=== PATIENT | female | born 1955 | race Caucasian/White ===

== ENCOUNTER 2017-08-08 16:35 | Inpatient (IN) | payer MEDICAID ==
[~2017-08-08] VITALS: Ht 172.7 cm; Wt 65.8 kg
[~2017-08-08 16:35] MED LIST: ADVAIR 500-501 EACH INH; APAP500 PO; CIPRO500 MG PO; DUONEB 2.5-0.5 M3 ML INH; FLAGYL500 MG PO; FLEXERIL PO; HYDROCHLOROTH12.5 M1 PO; HYDROCODONE-AP1 EAC6 PO; LEXAPRO20 MG PO; MEDROLDOSEPACK PO; MIRALAX17 GM PO; MIRAPEX0.5 MG PO; MOBIC15 MG PO; NORVASC5 MG PO; OXYBUTYNIN 5 MG5 M2 PO; PROMETH-CODEIN 65 ML PO; PROZAC20 MG PO; SENOKOT-S1 TA1 PO; SPIRIVA INH; TRAMADOL 50 MG50 MG PO; VASOTEC10 MG PO; VENTOLIN HFA 1818 GM INH; ZPAK PO
[2017-08-08 16:39] VITALS: BP 107/69
[2017-08-08 18:05] LABS: HEMATOCRIT 41.3 % (37.0-47.0); HEMOGLOBIN 13.1 gm/dL (12.0-15.0); MCHC 31.6 g/dL (28.0-37.0); MCV 82.1 fL (80.0-100.0); MPV 7.7 fl. (7.2-11.1); NUCLEATED RBCS 0 /100WBC; PLATELET COUNT* 290 thou/uL (150-400); RBC 5.03 mil/uL (4.20-5.00); RDW-CV 15.5 % (10.5-14.5); WBC 26.3 thou/uL (4.0-11.0)
[2017-08-08 18:14] LABS: ANION GAP 10 mmol/L (7-16); BUN 49 mg/dL (7-18); CALCIUM 8.6 mg/dL (8.5-10.1); CHLORIDE 96 mmol/L (98-107); CO2 23 mmol/L (21-32); CREATININE 1.4 mg/dL (0.6-1.3); GLUCOSE 201 mg/dL (70-99); POTASSIUM 3.2 mmol/L (3.5-5.1); SODIUM 129 mmol/L (136-145)
[2017-08-08 18:29] LABS: ALBUMIN 3.1 g/dL (3.4-5.0); ALKALINE PHOSPHATASE 145 U/L (46-116); LIPASE 162 U/L (73-393); NT-PRO BRAIN NAT PEPTIDE 102 pg/mL (<300); SGOT 19 U/L (15-37); SGPT 22 U/L (30-65); TOTAL BILIRUBIN 0.2 mg/dL (<0.1-1.0); TOTAL PROTEIN 6.8 g/dL (6.4-8.2)
[2017-08-08 18:32] LABS: INFLUENZA A ANTIGEN None Detected (None Detect); INFLUENZA B ANTIGEN None Detected (None Detect)
[2017-08-08 18:34] LABS: ABSOLUTE LYMPHOCYTES 4.2 thou/uL (0.8-5.3); ABSOLUTE MONOCYTES 0.3 thou/uL (0.0-1.2); ABSOLUTE NEUTROPHILS 21.8 thou/uL (1.6-8.1); ATYPICAL LYMPHS 1 %; PLATELET ESTIMATE ADEQUATE
[2017-08-08 18:43] LABS: TROPONIN-I LEVEL <0.06 ng/mL (<0.06)
--- NOTE | 2017-08-08 18:51 | NUR ---
LYSSA NOTIFIED UPON PT RETURN FROM CT. PT CONNECTED TO MONITOR
[2017-08-08 20:02] LABS: URINE BILIRUBIN NEGATIVE (Negative); URINE BLOOD NEGATIVE (Negative); URINE CLARITY CLEAR; URINE COLOR YELLOW; URINE GLUCOSE-RANDOM NEGATIVE (Negative); URINE KETONES NEGATIVE (Negative); URINE NITRITE-REFLEX NEGATIVE (Negative); URINE PROTEIN NEGATIVE (Negative); URINE UROBILINOGEN 0.2 E.U./dl (0.2-1.0)
[2017-08-08 20:04] LABS: URINE LEUKOCYTES-REFLEX 2+ (Negative)
[2017-08-08 20:11] LABS: AMP/METHAMP Negative (Negative); BARBITURATES Negative (Negative); BENZODIAZEPINES Negative (Negative); COCAINE Negative (Negative); METHADONE Negative (Negative); OPIATES Negative (Negative); PCP Negative (Negative); THC POSITIVE (Negative)
[2017-08-08 20:15] LABS: SQUAMOUS >10 Many /LPF (0-3); URINE WBC-REFLEX 6-15 Few /HPF (0-5)
[2017-08-08 20:16] LABS: CASTS None Seen /LPF (None Seen); CRYSTALS None Seen /LPF (None Seen); URINE RBC None Seen /HPF (0-2)
[2017-08-08] MEDS ORDERED: CIPRO500 MG PO (20:29)
[2017-08-08] MEDS ORDERED: PREDNISONE 10 M10 MG PO (20:29)
[2017-08-08 22:24] VITALS: BP 128/74
[2017-08-08 22:30] VITALS: BP 140/62; BP 147/63
[2017-08-09 04:05] VITALS: BP 131/53
--- NOTE | 2017-08-09 04:31 | NUR ---
PT REMAIN STABLE SINCE ADMIT, VSS, SR ON THE MONITOR, PAIN TREATED, POTASSIUM REPLACED, IV FLUIDS INFUSING, PT UP AD AMPARO WITH SBA REQUSETED BY RN DUE TO IV FLUIDS AND PAIN MEDS, HOURLY ROUNDING COMPLETED, FALL PRECAUTIONS IN PLACE AT ALL TIMES WITH CALL LIGHT IN REACH, PT DID NOT SLEEP MUCH OVER NIGHT, NO COMPLAINTS OF SOA, ATE A BOX MEAL WITH OUT REPORTS OF N/V, WILL CONT TO MONITOR.
[2017-08-09 05:41] LABS: CALCIUM 7.7 mg/dL (8.5-10.1); CREATININE 0.8 mg/dL (0.6-1.3)
[2017-08-09 05:43] LABS: POTASSIUM 4.2 mmol/L (3.5-5.1)
[2017-08-09 08:10] VITALS: BP 130/109
[2017-08-09 10:08] LABS: ABSOLUTE LYMPHOCYTES 0.6 thou/uL (0.8-5.3); ABSOLUTE MONOCYTES 0.1 thou/uL (0.0-1.2); ABSOLUTE NEUTROPHILS 13.4 thou/uL (1.6-8.1); BASOPHILS 0.2 %; HEMOGLOBIN 11.3 gm/dL (12.0-15.0); LYMPHOCYTES 4.4 %; MCH 26.4 pg (26.0-34.0); MCHC 32.2 g/dL (28.0-37.0); MCV 81.7 fL (80.0-100.0); MONOCYTES 0.5 %; MPV 8.3 fl. (7.2-11.1); NUCLEATED RBCS 0 /100WBC; PLATELET COUNT* 229 thou/uL (150-400); POLYS 94.9 %; RBC 4.28 mil/uL (4.20-5.00); RDW-CV 15.7 % (10.5-14.5); WBC 14.1 thou/uL (4.0-11.0)
[2017-08-09 12:00] VITALS: BP 149/60
--- NOTE | 2017-08-09 13:47 | NUR ---
CM ASSESSMENT: Pt is A&O. Resides at home with her son and DIL. YONATAN, Kia, is Pt's paid caregiver through her Medicaid. DIL assist with cooking, cleaning and bathing/grooming. Pt has a walker that she can use if needed. No hx of HH or SNF. Goal is to return home once medically stable. No dc needs anticipated.
--- NOTE | 2017-08-09 13:56 | NUR ---
Nutrition: Consult received for loss of appetite. Wt hx shows 144# last Aug 2016. Pt weighs 139# today - no significant change in wt. Admitted with SIRS 2/2 frostbite. Regular diet. BG 189, albumin 3.1. H/o COPD, SBO. Unsure of po intake today. Expect good meal intake. Will follow up per protocol. Consider Mild risk at this time. May order Boost supplement if pt desires.
--- NOTE | 2017-08-09 15:15 | NUR ---
ASSUMED CARE OF PATIENT FROM TOÑO SNYDER AT 1400. AGREE WITH AM ASSESSMENT. PATIENT REQUESTING IBUPROFEN AND HEATING PAD, DR. CORONADO PAGED AND AWAITING RETURN CALL. WILL CONTINUE TO MONITOR.
[2017-08-09 16:00] VITALS: BP 129/65
--- NOTE | 2017-08-09 16:47 | NUR ---
PRN IBUOPROFEN ORDERED AND GIVEN FOR BACK AND SHOULDER PAIN. KPAD ORDERED AND WILL PLACE ON PATIENT ONCE UP TO UNIT. IVF REMAINS INFUSING. CALLING APPROPRIATLY WHEN NEEDING TO GET OUT OF BED. PATIENT WEARING SOCKS ON HANDS WITH LOTION.
[2017-08-09 20:00] VITALS: BP 138/68
[2017-08-10] VITALS: BP 113/42
[2017-08-10 04:00] VITALS: BP 109/62
--- NOTE | 2017-08-10 04:44 | NUR ---
PATIENT PROGRESSING TOWARDS GOALS AND DISCHARGE: PATIENT AMBULATING INDEPENDENTLY TO BATHROOM THROUGHOUT SHIFT. PAIN IN RIGHT SHOULDER AND BACK RELIEVED WITH PRN IBUPROFEN AND HEATING PAD. PATIENT IS HOPEFUL TO BE DISCHARGED HOME TODAY. PATIENT REMAINS ON ROOM AIR. NEEDLE GRADER TRACING SR HR 60-80S. HOURLY ROUNDING OBSERVED. CALL LIGHT WITHIN REACH
[2017-08-10 05:12] LABS: HEMOGLOBIN 10.6 gm/dL (12.0-15.0); MCH 26.4 pg (26.0-34.0); MCV 82.5 fL (80.0-100.0); MPV 7.8 fl. (7.2-11.1); RDW-CV 15.6 % (10.5-14.5); WBC 19.2 thou/uL (4.0-11.0)
[2017-08-10 05:31] LABS: CALCIUM 8.3 mg/dL (8.5-10.1); CREATININE 0.9 mg/dL (0.6-1.3); MAGNESIUM 1.9 mg/dL (1.8-2.4); POTASSIUM 4.4 mmol/L (3.5-5.1)
[2017-08-10 08:00] VITALS: BP 122/63
[2017-08-10] MEDS ORDERED: CIPRO500 MG PO (08:14)
[2017-08-10 10:56] VITALS: BP 122/63
--- NOTE | 2017-08-10 13:34 | NUR ---
ASSUMED PT CARE AT 0730, FULL ASSESMENT DONE CHARTED. PT A/O X4, C/0 BACK PAIN,REPORT THAT SCABS/SPLITS IN HANDS ARE BETTER, PT APPLYING BARRIOR OINTMENT TO HANDS. VSS, SR ON THE MONITOR. RECIEVED DISCHARGE ORDERS, PT EDUCATED ON INSTRUCTIONS AND NEW SCRIPT. PT VERBALIZED UNDERSTANDING. PT LEFT UNIT AT APPROX 1130.
== END 2017-08-10 11:35 | disposition home or self-care (01) | DRG 683 ==
LOC: M.ERS 16:35 → M.TBA-ER 20:50 → M.2W 20:50
PROVIDERS: Internal Medicine; Physician Assistant; ADMIT Internal Medicine
DX: N17.9 Acute kidney failure, unspecified (principal); T33.522A Superficial frostbite of left hand, initial encounter; N39.0 Urinary tract infection, site not specified; E87.2 Acidosis; R65.10 Systemic inflammatory response syndrome (SIRS) of non-infectious origin without acute organ dysfunction; T33.521A Superficial frostbite of right hand, initial encounter; I10 Essential (primary) hypertension; J44.9 Chronic obstructive pulmonary disease, unspecified; E86.9 Volume depletion, unspecified; G25.81 Restless legs syndrome; I95.9 Hypotension, unspecified; F17.210 Nicotine dependence, cigarettes, uncomplicated; Z90.710 Acquired absence of both cervix and uterus; Z90.49 Acquired absence of other specified parts of digestive tract; X31.XXXA Exposure to excessive natural cold, initial encounter; Y93.01 Activity, walking, marching and hiking; Y92.89 Other specified places as the place of occurrence of the external cause; Y99.8 Other external cause status; Z80.9 Family history of malignant neoplasm, unspecified

== ENCOUNTER 2017-08-18 12:14 | Inpatient (IN) | payer MEDICAID ==
[~2017-08-18] VITALS: Ht 172.7 cm; Wt 64.4 kg
[~2017-08-18 12:14] MED LIST changes: +PREDNISONE 10 M10 MG PO
[2017-08-18 12:26] VITALS: BP 113/89
[2017-08-18 13:03] LABS: HEMATOCRIT 35.1 % (37.0-47.0); HEMOGLOBIN 11.4 gm/dL (12.0-15.0); MCH 26.5 pg (26.0-34.0); MCHC 32.4 g/dL (28.0-37.0); MCV 81.9 fL (80.0-100.0); MPV 7.5 fl. (7.2-11.1); NUCLEATED RBCS 0 /100WBC; PLATELET COUNT* 213 thou/uL (150-400); RBC 4.28 mil/uL (4.20-5.00); RDW-CV 16.5 % (10.5-14.5); WBC 18.1 thou/uL (4.0-11.0)
[2017-08-18 13:10] LABS: CALCIUM 8.9 mg/dL (8.5-10.1); POTASSIUM 4.6 mmol/L (3.5-5.1)
[2017-08-18 13:15] LABS: ALBUMIN 2.8 g/dL (3.4-5.0); TOTAL BILIRUBIN 0.3 mg/dL (<0.1-1.0); TOTAL PROTEIN 6.4 g/dL (6.4-8.2)
[2017-08-18 13:31] LABS: URINE BILIRUBIN NEGATIVE (Negative); URINE BLOOD NEGATIVE (Negative); URINE CLARITY CLEAR; URINE COLOR DARK YELLOW; URINE GLUCOSE-RANDOM NEGATIVE (Negative); URINE KETONES NEGATIVE (Negative); URINE LEUKOCYTES-REFLEX 1+ (Negative); URINE NITRITE-REFLEX NEGATIVE (Negative); URINE PROTEIN NEGATIVE (Negative); URINE SPECIFIC GRAVITY 1.015 (1.005-1.030); URINE UROBILINOGEN 0.2 E.U./dl (0.2-1.0)
[2017-08-18 13:47] LABS: SQUAMOUS >10 Many /LPF (0-3)
[2017-08-18 13:48] LABS: BACTERIA-REFLEX 1-9 Few /HPF (None Seen); CASTS None Seen /LPF (None Seen); CRYSTALS None Seen /LPF (None Seen); URINE RBC None Seen /HPF (0-2); URINE WBC-REFLEX 6-15 Few /HPF (0-5)
[2017-08-18 13:57] LABS: ABSOLUTE EOSINOPHILS 0.4 thou/uL (0.0-0.7); ABSOLUTE LYMPHOCYTES 1.4 thou/uL (0.8-5.3); ABSOLUTE MONOCYTES 0.2 thou/uL (0.0-1.2); ABSOLUTE NEUTROPHILS 16.1 thou/uL (1.6-8.1); ATYPICAL LYMPHS 3 %
[2017-08-18 13:58] LABS: PLATELET ESTIMATE ADEQUATE
[2017-08-18 16:14] VITALS: BP 117/69
[2017-08-18 16:47] VITALS: BP 127/62
[2017-08-18] MEDS ORDERED: TRAMADOL 50 MG50 MG PO (19:21)
[2017-08-18] MEDS ORDERED: MIRAPEX0.5 MG PO (19:43)
[2017-08-18] MEDS ORDERED: FLEXERIL PO (19:44)
[2017-08-18] MEDS ORDERED: HYDROXYZINE HCL25 M2 PO (19:48)
[2017-08-19] VITALS: BP 109/62
[2017-08-19 08:00] VITALS: BP 110/60
[2017-08-19 15:40] VITALS: BP 143/82
[2017-08-20 00:04] VITALS: BP 106/55
[2017-08-20 04:16] LABS: ABSOLUTE EOSINOPHILS 0.1 thou/uL (0.0-0.7); ABSOLUTE LYMPHOCYTES 2.2 thou/uL (0.8-5.3); ABSOLUTE MONOCYTES 0.8 thou/uL (0.0-1.2); ABSOLUTE NEUTROPHILS 5.7 thou/uL (1.6-8.1); BASOPHILS 0.4 %; HEMATOCRIT 31.5 % (37.0-47.0); HEMOGLOBIN 10.1 gm/dL (12.0-15.0); LYMPHOCYTES 25.3 %; MCH 26.9 pg (26.0-34.0); MCHC 32.1 g/dL (28.0-37.0); MCV 83.9 fL (80.0-100.0); MONOCYTES 9.5 %; MPV 8.1 fl. (7.2-11.1); NUCLEATED RBCS 0 /100WBC; PLATELET COUNT* 170 thou/uL (150-400); POLYS 63.8 %; RBC 3.76 mil/uL (4.20-5.00); WBC 8.9 thou/uL (4.0-11.0)
[2017-08-20 07:45] VITALS: BP 135/72
[2017-08-20] MEDS ORDERED: LEVAQUIN 750 M750 MG PO (10:12)
[2017-08-20] MEDS ORDERED: VISTARIL 25 MG25 M1 PO (10:52)
[2017-08-20 10:53] VITALS: BP 135/72
[2017-08-20 11:12] VITALS: BP 135/72
== END 2017-08-20 11:16 | disposition home or self-care (01) | DRG 919 ==
LOC: M.ERS 12:14 → M.3W 14:32 → M.TBA-ER 14:32 → M.3W 16:22
PROVIDERS: Physician Assistant; ADMIT Family Medicine
DX: T85.848A Pain due to other internal prosthetic devices, implants and grafts, initial encounter (principal); J18.9 Pneumonia, unspecified organism; J44.0 Chronic obstructive pulmonary disease with (acute) lower respiratory infection; I10 Essential (primary) hypertension; M25.512 Pain in left shoulder; Y83.8 Other surgical procedures as the cause of abnormal reaction of the patient, or of later complication, without mention of misadventure at the time of the procedure; G25.81 Restless legs syndrome; F17.210 Nicotine dependence, cigarettes, uncomplicated; Z80.9 Family history of malignant neoplasm, unspecified; Z90.49 Acquired absence of other specified parts of digestive tract; Z90.710 Acquired absence of both cervix and uterus; Y92.89 Other specified places as the place of occurrence of the external cause

== ENCOUNTER 2017-11-13 12:02 | Inpatient (IN) | payer MEDICAID ==
[~2017-11-13] VITALS: Ht 172.7 cm; Wt 63.5 kg
[~2017-11-13 12:02] MED LIST changes: +HYDROXYZINE HCL25 M2 PO; +LEVAQUIN 750 M750 MG PO; +VISTARIL 25 MG25 M1 PO
[2017-11-13 12:11] VITALS: BP 93/46
[2017-11-13] MEDS ORDERED: IBUPROFEN 600600 M1 PO (12:20)
[2017-11-13] MEDS ORDERED: NEURONTIN600 MG PO (12:20)
[2017-11-13 13:25] LABS: HEMATOCRIT 37.1 % (37.0-47.0); HEMOGLOBIN 11.7 gm/dL (12.0-15.0); MCH 25.2 pg (26.0-34.0); MCHC 31.6 g/dL (28.0-37.0); MCV 79.9 fL (80.0-100.0); MPV 8.2 fl. (7.2-11.1); NUCLEATED RBCS 0 /100WBC; PLATELET COUNT* 295 thou/uL (150-400); RBC 4.65 mil/uL (4.20-5.00); RDW-CV 17.7 % (10.5-14.5); WBC 21.5 thou/uL (4.0-11.0)
[2017-11-13 13:29] LABS: CALCIUM 8.5 mg/dL (8.5-10.1); CREATININE 1.7 mg/dL (0.6-1.3); POTASSIUM 3.2 mmol/L (3.5-5.1)
[2017-11-13 13:34] LABS: ALBUMIN 3.4 g/dL (3.4-5.0); TOTAL BILIRUBIN 0.4 mg/dL (<0.1-1.0); TOTAL PROTEIN 7.2 g/dL (6.4-8.2)
[2017-11-13 13:49] LABS: ABSOLUTE EOSINOPHILS 0.2 thou/uL (0.0-0.7); ABSOLUTE LYMPHOCYTES 3.4 thou/uL (0.8-5.3); ABSOLUTE MONOCYTES 1.5 thou/uL (0.0-1.2); ABSOLUTE NEUTROPHILS 16.3 thou/uL (1.6-8.1); ANISOCYTOSIS 1+; PLATELET ESTIMATE ADEQUATE
[2017-11-13 15:19] LABS: HCO3 13.9 mmol/L (22.0-26.0); PCO2 25.6 mmHg (35.0-45.0); PO2 82.6 mmHg (75.0-100.0); pH 7.354 (7.340-7.450)
[2017-11-13 16:00] VITALS: BP 91/48; BP 92/42
[2017-11-13] MEDS ORDERED: RESTORIL15 MG PO (16:38)
--- NOTE | 2017-11-13 16:43 | NUR ---
ASSUMED CARE OF PATIENT AT 1600 AFTER TRANSFER TO ROOM 205 FROM EMERGENCY DEPARTMENT. PATIENT AWAKE, ALERT, AND ORIENTED APPROPRIATELY. PHYSICAL ASSESSMENT COMPLETED AND CHARTED. ADMISSION DOCUMENTATION COMPLETED AND CHARTED. PATIENT IS HYPOTENSIVE BUT OTHER VITAL SIGNS ARE STABLE. HEART MONITOR INTACT AND TRACING SINUS RHYTHM WITH HEART RATE OF 76. DUE TO WEAKNESS PATIENT HAS BEEN EDUCATED TO CALL STAFF FOR ASSISTANCE WITH TRANSFERRING AND AMBULATING. CALL LIGHT WITHIN REACH. DENIES NEEDS AT THIS TIME. NURSING WILL CONTINUE TO MONITOR.
[2017-11-13 20:00] VITALS: BP 82/42
[2017-11-13 20:20] LABS: CALCIUM 8.5 mg/dL (8.5-10.1); CREATININE 1.5 mg/dL (0.6-1.3); POTASSIUM 4.1 mmol/L (3.5-5.1)
[2017-11-14] VITALS (7 sets, daily range): BP systolic 89–129; BP diastolic 40–64
[2017-11-14 03:54] LABS: URINE BILIRUBIN NEGATIVE (Negative); URINE BLOOD TRACE (Negative); URINE CLARITY CLEAR; URINE COLOR STRAW; URINE GLUCOSE-RANDOM NEGATIVE (Negative); URINE KETONES NEGATIVE (Negative); URINE NITRITE-REFLEX NEGATIVE (Negative); URINE PROTEIN NEGATIVE (Negative); URINE SPECIFIC GRAVITY <= 1.005 (1.005-1.030); URINE UROBILINOGEN 0.2 E.U./dl (0.2-1.0)
[2017-11-14 04:00] LABS: URINE LEUKOCYTES-REFLEX 2+ (Negative)
[2017-11-14 04:54] LABS: HEMATOCRIT 30.5 % (37.0-47.0); HEMOGLOBIN 9.8 gm/dL (12.0-15.0); MCH 25.4 pg (26.0-34.0); MCV 79.5 fL (80.0-100.0); MPV 8.2 fl. (7.2-11.1); RBC 3.84 mil/uL (4.20-5.00); RDW-CV 17.7 % (10.5-14.5); WBC 14.2 thou/uL (4.0-11.0)
[2017-11-14 04:58] LABS: CASTS None Seen /LPF (None Seen); SQUAMOUS >10 Many /LPF (0-3)
[2017-11-14 04:59] LABS: BACTERIA-REFLEX 1-9 Few /HPF (None Seen); CRYSTALS None Seen /LPF (None Seen); URINE RBC 0-2 Rare /HPF (0-2); URINE WBC-REFLEX 6-15 Few /HPF (0-5)
[2017-11-14 05:35] LABS: ALBUMIN 2.7 g/dL (3.4-5.0); POTASSIUM 4.2 mmol/L (3.5-5.1); TOTAL BILIRUBIN 0.3 mg/dL (<0.1-1.0); TOTAL PROTEIN 5.4 g/dL (6.4-8.2)
--- NOTE | 2017-11-14 05:43 | NUR ---
PT CARE ASSUMED AFTER REPORT. ASSESSMENT COMPLETE. SR ON MONITOR. PRN PAIN MEDICATION GIVEN PER PT REQUEST. IVF INFUSING. PT REFUSES BED ALARM/FALL PRECAUTIONS. PT TURNS BED ALARM OFF AND AMBULATES TO THE BATHROOM. PT EDUCATED NUMOROUS TIMES TO IMPORTANCE OF FALL PRECAUTIONS AND BED ALARM. CONTINUES TO REFUSE. CALL LIGHT IN REACH. BED IN LOWEST POSITION. URINE AND STOOL SAMPLES SENT TO LAB. PROGRESSING TOWARDS SOME GOALS.
--- NOTE | 2017-11-14 09:47 | NUR ---
ASSUMED CARE OF PATIENT AFTER REPORT THIS MORNING. PATIENT AWAKE, ALERT, AND ORIENTED APPROPRIATELY. PHYSICAL ASSESSMENT COMPLETED AND CHARTED. COMPLAINED OF "ANNOYING" DISCOMFORT TO ABDOMEN. RATED DISCOMFORT 3/10. GIVEN SCHEDULED MEDICATIONS, SEE EMAR FOR DOCUMENTATION. VITAL SIGNS STABLE OTHER THAN HYPOTENSIVE BLOOD PRESSURE. OXYGEN SATURATION WITHIN NORMAL LIMITS ON ROOM AIR. PATIENT IS UP AD AMPARO. WAS A FALL RISK LAST EVENING DUE TO COMPLAINTS OF WEAKNESS AND HYPOTENSION. PATIENT REFUSED TO FOLLOW FALL PRECAUTIONS, NOT ALLOWING STAFF TO TURN ON BED ALARM, NOT CALLING FOR HELP WHEN GOING TO THE BATHROOM, DESPITE EDUCATION. REASSESSED FALL STATUS THIS MORNING. NO MORE COMPLAINTS OF WEAKNESS. STEADY GAIT. HAS NOT FALLEN IN THE LAST THREE MONTHS. EDUCATED PATIENT THAT IF SHE FELT WEAK SHE NEEDED TO CALL STAFF. STATED UNDERSTANDING. DENIES NEEDS AT THIS TIME. CALL LIGHT WITHIN REACH. NURSING WILL CONTINUE TO MONITOR.
--- NOTE | 2017-11-14 10:10 | NUR ---
CM ASSESSMENT: Pt is A&O. Resides at home alone. Known to this CM from previous hospital stay. Pt's Kia TAM, provides in home care services, paid for through Pt's medicaid. Pt receives 3 hours/day x7 days/week of inhome care services. No hx of HH or SNF. Pt has a walker that she can use if needed, Pt states that she does not currently need to use it. Goal is to return home once medically stable for dc.
--- NOTE | 2017-11-14 17:43 | NUR ---
PATIENT REMAINS ALERT AND ORIENTED APPROPRIATELY. HAS BEEN AD AMPARO THIS SHIFT WITHOUT DIFFICULTY. HAS WALKED THE HALLS SEVERAL TIMES. DENIES NEEDS AT THIS TIME. CALL LIGHT WITHIN REACH. NURSING WILL CONTINUE TO MONITOR.
[2017-11-15 04:00] VITALS: BP 112/56
[2017-11-15 04:41] LABS: HEMATOCRIT 27.5 % (37.0-47.0); HEMOGLOBIN 8.8 gm/dL (12.0-15.0); MCH 25.6 pg (26.0-34.0); MCHC 32.2 g/dL (28.0-37.0); MCV 79.7 fL (80.0-100.0); MPV 8.2 fl. (7.2-11.1); RBC 3.45 mil/uL (4.20-5.00); WBC 9.7 thou/uL (4.0-11.0)
[2017-11-15 04:49] LABS: CALCIUM 8.3 mg/dL (8.5-10.1); CREATININE 0.7 mg/dL (0.6-1.3); POTASSIUM 4.1 mmol/L (3.5-5.1)
--- NOTE | 2017-11-15 06:22 | NUR ---
Pt reports she is hopeful of being discharged soon. VSS. Up ad leoncio in room. Medicated for c/o abd pain twice during shift. Reports adequate relief from pain afterwards. Will continue to monitor.
[2017-11-15 08:00] VITALS: BP 115/56
--- NOTE | 2017-11-15 08:00 | NUR ---
AM ASSESSEMENT COMPELTE, DEFER TO COMPUTER CHARTING. MUNITIONS WORKER TRACKING SR. ALERT ORIENTED, ANXIOUS THIS AM - REASSURANCE GIVEN. ABD TENDER TO TOUCH, IV INFILTRATED - RESTARTED. REPORTING FEELING NAUSATED, WILL GIVEN REPEAT ZOFRAN TO ASSIST WITH COMPLAINTS OF NAUSEA AND CONTINUE TO MONITOR. CALL LIGHT WITHIN REACH.
[2017-11-15] MEDS ORDERED: COLACE100 MG PO (08:38)
[2017-11-15] MEDS ORDERED: CIPRO500 MG PO (08:38)
[2017-11-15] MEDS ORDERED: FLAGYL500 MG PO (08:38)
[2017-11-15 11:55] VITALS: BP 115/56
[2017-11-15 12:00] VITALS: BP 122/63
--- NOTE | 2017-11-15 14:06 | NUR ---
DISCHARGE ORDERS RECEIVED. DRILL PRESSER AND SALINE LOCK DC'D. DENIES NASUEA, PAIN OR AND DISCOMFORT AT THIS TIME. TOLERATED DIET. UP AMBULATING IN HALLS AND IN ROOM. PATIENT EDUCATED ON DISCHARGE INSTUCTIONS, VERALIZED UNDERSTANDING HAVING NO QUESTIONS - GIVEN WRITTEN DISCHARGE INSTRUCTIONS FOR REINFORCEMENT TEACHING. DC'D TO HOME WITH ALL PERSONAL BELONGINGS.
== END 2017-11-15 14:42 | disposition home or self-care (01) | DRG 872 ==
LOC: M.ERS 12:02 → M.TBA-ER 15:02 → M.2W 15:02
PROVIDERS: Internal Medicine; Personal Emergency Response Attendant; ADMIT Internal Medicine
DX: A41.9 Sepsis, unspecified organism (principal); N39.0 Urinary tract infection, site not specified; E87.1 Hypo-osmolality and hyponatremia; K52.9 Noninfective gastroenteritis and colitis, unspecified; E86.0 Dehydration; I10 Essential (primary) hypertension; F17.210 Nicotine dependence, cigarettes, uncomplicated; G25.81 Restless legs syndrome; J44.9 Chronic obstructive pulmonary disease, unspecified; K64.9 Unspecified hemorrhoids; I95.9 Hypotension, unspecified; Z90.710 Acquired absence of both cervix and uterus; Z79.899 Other long term (current) drug therapy; Z90.49 Acquired absence of other specified parts of digestive tract

== ENCOUNTER 2018-01-25 09:17 | Emergency (ER) | payer MEDICAID ==
[~2018-01-25] VITALS: Ht 172.7 cm; Wt 64.4 kg
[~2018-01-25 09:17] MED LIST changes: +COLACE100 MG PO; +IBUPROFEN 600600 M1 PO; +NEURONTIN600 MG PO; +RESTORIL15 MG PO
[2018-01-25] MEDS ORDERED: LISINOPRIL-HCT1 EAC2 PO (09:27)
[2018-01-25] MEDS ORDERED: HYDROCODONE-AP1 EAC6 PO (09:28)
[2018-01-25] MEDS ORDERED: VISTARIL 25 MG25 M1 PO (09:28)
[2018-01-25] MEDS ORDERED: SPIRIVA18 MCG INH (09:28)
[2018-01-25] MEDS ORDERED: AMLODIPINE BESY10 MG PO (09:28)
[2018-01-25] MEDS ORDERED: PREMARIN30 GM TOP (09:29)
[2018-01-25 09:49] LABS: ABSOLUTE LYMPHOCYTES 1.6 thou/uL (0.8-5.3); ABSOLUTE MONOCYTES 0.7 thou/uL (0.0-1.2); ABSOLUTE NEUTROPHILS 7.6 thou/uL (1.6-8.1); BASOPHILS 0.3 %; EOSINOPHILS 0.3 %; HEMATOCRIT 41.2 % (37.0-47.0); HEMOGLOBIN 13.1 gm/dL (12.0-15.0); LYMPHOCYTES 15.7 %; MCH 24.6 pg (26.0-34.0); MCHC 31.7 g/dL (28.0-37.0); MCV 77.6 fL (80.0-100.0); MONOCYTES 7.3 %; MPV 8.2 fl. (7.2-11.1); NUCLEATED RBCS 0 /100WBC; PLATELET COUNT* 238 thou/uL (150-400); POLYS 76.4 %; RBC 5.31 mil/uL (4.20-5.00); RDW-CV 17.8 % (10.5-14.5); WBC 9.9 thou/uL (4.0-11.0)
[2018-01-25 09:58] LABS: ANION GAP 10 mmol/L (7-16); BUN 24 mg/dL (7-18); CALCIUM 8.7 mg/dL (8.5-10.1); CHLORIDE 103 mmol/L (98-107); CO2 24 mmol/L (21-32); CREATININE 0.6 mg/dL (0.6-1.3); GLUCOSE 143 mg/dL (70-99); POTASSIUM 3.2 mmol/L (3.5-5.1); SODIUM 137 mmol/L (136-145)
[2018-01-25 10:04] LABS: ALBUMIN 3.4 g/dL (3.4-5.0); ALKALINE PHOSPHATASE 125 U/L (46-116); LIPASE 42 U/L (73-393); SGOT 18 U/L (15-37); SGPT 21 U/L (30-65); TOTAL BILIRUBIN 0.4 mg/dL (<0.1-1.0); TOTAL PROTEIN 7.4 g/dL (6.4-8.2); TROPONIN-I LEVEL <0.06 ng/mL (<0.06)
[2018-01-25 12:00] LABS: URINE BILIRUBIN NEGATIVE (Negative); URINE BLOOD NEGATIVE (Negative); URINE CLARITY CLEAR; URINE COLOR YELLOW; URINE GLUCOSE-RANDOM NEGATIVE (Negative); URINE KETONES NEGATIVE (Negative); URINE LEUKOCYTES-REFLEX NEGATIVE (Negative); URINE NITRITE-REFLEX NEGATIVE (Negative); URINE PROTEIN NEGATIVE (Negative); URINE SPECIFIC GRAVITY <= 1.005 (1.005-1.030); URINE UROBILINOGEN 0.2 E.U./dl (0.2-1.0)
[2018-01-25] MEDS ORDERED: DOXYCYCLINE 10100 MG PO (12:14)
[2018-01-25] MEDS ORDERED: NORCO 5-325 TA1 EACH PO (12:14)
[2018-01-25] MEDS ORDERED: CARAFATE 1 GM TA1 G1 PO (12:14)
[2018-01-25 12:22] VITALS: BP 134/78
--- NOTE | 2018-01-25 14:05 | EKG ---
[place] [address] ELECTROCARDIOGRAM REPORT Name: RUY CANDELARIA Room: 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 01/25/18 1404 0937 6 Cuco May MD, FACC /EPI
== END 2018-01-25 12:23 | disposition home or self-care (01) ==
LOC: M.ERS 09:17
PROVIDERS: Emergency Medicine Emergency Medical Services
DX: L03.114 Cellulitis of left upper limb (principal); L98.499 Non-pressure chronic ulcer of skin of other sites with unspecified severity; I10 Essential (primary) hypertension; Z90.49 Acquired absence of other specified parts of digestive tract; J44.9 Chronic obstructive pulmonary disease, unspecified; Z90.710 Acquired absence of both cervix and uterus

== ENCOUNTER 2018-02-04 08:45 | Observation (INO) | payer MEDICAID ==
[~2018-02-04] VITALS: Ht 172.7 cm; Wt 71.2 kg
[2018-02-04] VITALS (15 sets, daily range): BP systolic 133–168; BP diastolic 52–80
[~2018-02-04 08:45] MED LIST changes: +AMLODIPINE BESY10 MG PO; +CARAFATE 1 GM TA1 G1 PO; +DOXYCYCLINE 10100 MG PO; +LISINOPRIL-HCT1 EAC2 PO; +NORCO 5-325 TA1 EACH PO; +PREMARIN30 GM TOP; +SPIRIVA18 MCG INH
[2018-02-04 09:20] LABS: ABSOLUTE BASOPHILS 0.2 thou/uL (0.0-0.2); ABSOLUTE LYMPHOCYTES 2.1 thou/uL (0.8-5.3); ABSOLUTE MONOCYTES 0.4 thou/uL (0.0-1.2); ABSOLUTE NEUTROPHILS 11.4 thou/uL (1.6-8.1); BASOPHILS 1.3 %; EOSINOPHILS 0.1 %; HEMATOCRIT 40.4 % (37.0-47.0); HEMOGLOBIN 12.7 gm/dL (12.0-15.0); LYMPHOCYTES 14.9 %; MCHC 31.5 g/dL (28.0-37.0); MCV 76.1 fL (80.0-100.0); MPV 8.5 fl. (7.2-11.1); NUCLEATED RBCS 0 /100WBC; PLATELET COUNT* 432 thou/uL (150-400); POLYS 80.7 %; RBC 5.31 mil/uL (4.20-5.00); WBC 14.2 thou/uL (4.0-11.0)
[2018-02-04 09:24] LABS: ANION GAP 9 mmol/L (7-16); BUN 17 mg/dL (7-18); CALCIUM 9.7 mg/dL (8.5-10.1); CHLORIDE 94 mmol/L (98-107); CO2 30 mmol/L (21-32); CREATININE 0.8 mg/dL (0.6-1.3); GLUCOSE 194 mg/dL (70-99); POTASSIUM 3.7 mmol/L (3.5-5.1); SODIUM 133 mmol/L (136-145)
[2018-02-04 09:35] LABS: ALBUMIN 3.8 g/dL (3.4-5.0); ALKALINE PHOSPHATASE 128 U/L (46-116); LIPASE 81 U/L (73-393); NT-PRO BRAIN NAT PEPTIDE 190 pg/mL (<300); SGOT 19 U/L (15-37); SGPT 22 U/L (30-65); TOTAL BILIRUBIN 0.4 mg/dL (<0.1-1.0); TROPONIN-I LEVEL <0.06 ng/mL (<0.06)
--- NOTE | 2018-02-04 16:10 | EKG ---
[place] [address] ELECTROCARDIOGRAM REPORT Name: RUY CANDELARIA Room: [address] IN [facility]#: [id number] Admission: 02/04/18 Attend Phys: Walker Fiore MD Discharge: Date of : 55 Report #: [id number] THIS REPORT FOR: //name// [facility] ED Test Date: 2018-02-04 Test Time: 08:50:05 Pat Name: RUY CANDELARIA Department: Room: Gender: F Doper Operator: Yazan DHALIWAL : 1955 Requested By: Kareem Pepe Order Number: [id number] MD: Cuco May Measurements Intervals [place] Rate: 95 P: 86 [place]: 141 QRS: -25 QRSD: 109 T: 65 QT: 364 QTc: 458 Interpretive Statements Sinus rhythm nonspecific st changes Right atrial enlargement Borderline left axis deviation Low voltage, extremity and precordial leads Compared to ECG 01/25/2018 09:37:16 no change Electronically Signed On 02-04-2018 16:09:56 CDT by Cuco May [email or web address] <ELECTRONICALLY SIGNED> By: Cuco May MD, [facility] 02/04/18 1609 0850 0850 Cuco May MD, [facility] /EPI
--- NOTE | 2018-02-04 16:16 | EKG ---
[place] [address] ELECTROCARDIOGRAM REPORT Name: RUY CANDELARIA Room: [address] ADM IN [facility].#: [id number] Admission: 02/04/18 Attend Phys: Walker Fiore MD Discharge: Date of : 55 Report #: [id number] THIS REPORT FOR: //name// [facility] Test Date: 2018-02-04 Test Time: 15:50:52 Pat Name: RUY CANDELARIA Department: Room: [address] Gender: F Inspector And Clipper: 14 : 1955 Requested By: Cuco May Order Number: [id number] Davon MD: Cuco May Measurements Intervals [place] Rate: 69 P: 75 MO: 157 QRS: 9 QRSD: 94 T: 62 QT: 427 QTc: 458 Interpretive Statements Sinus rhythm Electronically Signed On 02-04-2018 16:15:59 CDT by Cuco May [email or web address] <ELECTRONICALLY SIGNED> By: Cuco May MD, [facility] 02/04/18 1615 1550 1550 Cuco May MD, FACC /EPI
[2018-02-05] VITALS: BP 145/61
[2018-02-05 04:00] VITALS: BP 102/62
[2018-02-05 05:26] LABS: HEMATOCRIT 34.8 % (37.0-47.0); HEMOGLOBIN 11.1 gm/dL (12.0-15.0); MCH 24.5 pg (26.0-34.0); MCV 76.5 fL (80.0-100.0); MPV 8.1 fl. (7.2-11.1); RBC 4.54 mil/uL (4.20-5.00); WBC 7.6 thou/uL (4.0-11.0)
[2018-02-05 05:46] LABS: ANION GAP 7 mmol/L (7-16); BUN 15 mg/dL (7-18); CALCIUM 9.1 mg/dL (8.5-10.1); CHLORIDE 102 mmol/L (98-107); CHOLESTEROL 149 mg/dL (<200); CO2 29 mmol/L (21-32); CREATININE 0.8 mg/dL (0.6-1.3); GLUCOSE 105 mg/dL (70-99); HDL CHOLESTEROL 35 mg/dL (>40); LDL CHOLESTEROL 85 mg/dL (<100); MAGNESIUM 2.1 mg/dL (1.8-2.4); POTASSIUM 4.2 mmol/L (3.5-5.1); SODIUM 138 mmol/L (136-145); TC:HDL 4.3 Ratio (Not establshd); TRIGLYCERIDE 149 mg/dL (<150); TROPONIN-I LEVEL <0.06 ng/mL (<0.06); VLDL 30 mg/dL (<40)
[2018-02-05 05:55] LABS: SERUM ASSESSMENT Clear
[2018-02-05 08:10] VITALS: BP 133/74
[2018-02-05 08:11] VITALS: BP 102/62
[2018-02-05] MEDS ORDERED: LIPITOR 20 MG T20 M1 PO (10:40)
[2018-02-05] MEDS ORDERED: CLOPIDOGREL75 MG PO (10:40)
[2018-02-05] MEDS ORDERED: NITROGLYCERIN0.4 MG SUBLING (10:40)
[2018-02-05] MEDS ORDERED: PROTONIX40 M1 PO (10:42)
[2018-02-05] MEDS ORDERED: ASPIR 8181 MG PO (10:47)
--- NOTE | 2018-02-05 10:51 | CARD ---
[address] [address] CARDIAC CATH REPORT Name: RUY CANDELARIA Room: [address] Richie Zayas#: [id number] Admission: 02/04/18 Attend Phys: Walker Fiore MD Discharge: Date of : 55 Report #: [id number] THIS REPORT FOR: //name// APPROVED REPORT Study performed: 02/04/2018 12:44:57 Patient Details Patient Status: In-Patient Room #: 230 The patient is a 62 year-old female Event Personnel Cuco May Binding Printer, Jennifer Fuentes RN Panel Cutter, Kevon Ruiz (R) Monitor, Rebeca Diehl RTR Scrub Procedures Performed BHAVIK Place w/wo Plasty Single RCA Indication Abnormal ECG, Unstable angina Risk Factors Arterial Hypertension, Tobacco History () Admission/Lab Medications/Medications given during procedure Platelet Aff. Inhib., Heparin Unfract. Procedure Narrative The patient was brought electively to the Cardiac Catheterization Laboratory and was prepped and draped in a sterile manner. The right wrist was infiltrated with 1% Lidocaine subcutaneous anesthesia. A Slender Glidesheath sheath was inserted into the right radial artery. Coronary angiography was performed using coronary diagnostic catheters. The right coronary system was accessed and visualized with a Diagnostic JR4 5fr catheter. The left coronary system was accessed and visualized with a Diagnostic JL 3.5 5fr catheter. The left ventricle was accessed and visualized with a PC: Angled Pig 5frDiagnostic catheter. Left ventricular/Aortic Valve gradient assessed via catheter pullback. Left ventriculogram was performed in SAWYER projection. Closure device was deployed with a 6 Fr Vasc-Band Reg 24cm. The patient tolerated the procedure well and there were no complications associated with the procedure. There was no hematoma. Narrow complex tachycardia occured after LV gram. Terminated by 6 [place] [address] CARDIAC CATH REPORT Name: RUY CANDELARIA Room: [address] M.R.#: [id number] Admission: 02/04/18 Attend Phys: Walker Fiore MD Discharge: Date of : 55 Report #: [id number] Intraoperative Conscious Sedation Sedation start time: 13:34 Case end Time: 14:32 Versed 2 mg Fluoro Time: 7.2 minutes Dose: DAP 74169 cGycm2 677 mGy Contrast Type and Amount: Omnipaque 150 ml Coronary Angiography The patient's coronary anatomy is co- dominant. [place] Artery Percent Stenosis Left Main: 0 % Prox LAD: 0 % Mid/Distal LAD: 50 % Circumflex: 50 % RCA: 90 % Ramus: % Left Ventriculography The left ventricle is normal in size with normal contractility. The left ventricular ejection fraction is estimated to be 60-65%. Left ventricular wall motion abnormalities are not present. There is no mitral insufficiency. Hemodynamics The aortic pressure is 102/58 mmHg with a mean of 66 mmHg. The left ventricular pressure is 130/4 mmHg with a mean of mmHg. The left ventricular end diastolic pressure is 10 mmHg. There was no gradient across the aortic valve upon pullback. Pullback from the left ventricle to the aorta revealed no gradient across the aortic valve. PCI Technique Lesion Anticoagulation was achieved with Heparin. bolus of IV aggrastat given Percutaneous coronary intervention was performed on the mid right coronary artery. The lesion stenosis prior to intervention was 90% with [place] 3 flow. A 6F IM 100CM Guide Catheter was used to engage the rca ostium. A IG: BMW 190cm Interventional Guidewire was used to cross the lesion. BALLOON DILATION A Balloon catheter Trek RX 2.5 X 12 was inserted and inflated up to 6.00atm for 12seconds. Repeat angiography revealed the following post-dilatation results: 50% stenosis. Additional Inflation: 6.00atm for 10seconds. STENT DEPLOYMENT A drug-eluting stent Xience Alpine RX 2.5X33 [place] [address] CARDIAC CATH REPORT Name: TEAGANRUY E Room: [address] M.R.#: [id number] Admission: 02/04/18 Attend Phys: Walker Fiore MD Discharge: Date of : 55 Report #: [id number] inflated up to 9.00atm for 16seconds. Repeat angiography revealed the following post-stent deployment results: 0% stenosis. Additional Inflation: 10.00atm for 19seconds. Iraj wire was required because of length and tortuosity of the rca Final angiography reveals 0 % stenosis with D[place] 3 flow. Conclusion 1. single vessel cad manifested by a long area of narrowing in the rca with a discrete 90% stenosis before the RV branch 2. successful placement of a single long drug eluting stent in the mid rca Recommendations Smoking Cessation Cardiac Rehabilitation Referral Aggressive Medical Therapy Medications Administered Clopidogrel <ELECTRONICALLY SIGNED> By: Cuco May MD, [facility] 02/05/18 1051 1051 [email or web address] May MD, FACC /INF
[2018-02-05 11:01] VITALS: BP 133/74
[2018-02-05 11:18] VITALS: BP 133/74
--- NOTE | 2018-02-05 13:22 | EKG ---
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
--- NOTE | 2018-02-05 16:40 | CON ---
[address] [address] CONSULTATION Name: RUY CANDELARIA Room: [address] Richie Zayas#: [id number] Admission: 02/04/18 Attend Phys: Walker Fiore MD Discharge: 02/05/18 Date of : 55 Report #: [id number] THIS REPORT FOR: //name// CC: Walker Swain DATE OF SERVICE: 02/04/2018 HISTORY OF PRESENT ILLNESS: The patient is a 62-year-old single white female who I was asked to see in the hospital today after she complained of chest pain. The patient has no previous history of heart disease. She apparently has had a stress test in the past. She has never had a heart catheterization. She was lying in bed last night when she woke up with pain in her chest. She developed heaviness in her chest; it went into her left shoulder. She felt somewhat diaphoretic, short of breath, and nauseated. She vomited. The pain improved, but then she came back. A friend finally brought her to the Emergency Room this morning. She was given nitroglycerin, morphine and Zofran. She was admitted to a monitored bed. I was asked to see her for further evaluation and treatment. The pain is now coming back. She does note some shortness of breath with exertion. She had no significant edema. She does have a cough. She notes occasional palpitation, no syncope. PAST MEDICAL HISTORY: Significant for shoulder surgery, back surgery, bladder tuck, cholecystectomy, hysterectomy, hypertension, diabetes. MEDICATIONS ON ADMISSION: Consisted of the following list: She is on lisinopril HCT, amlodipine, Spiriva inhaler, Flexeril, Neurontin, Restoril, tramadol. ALLERGIES: She notes no known drug allergies. FAMILY HISTORY: Negative for heart disease. SOCIAL HISTORY: She is on disability due to chronic back pain. She lives here in [place] in an apartment. She is from her . Smokes less than half pack of cigarettes a day. No alcohol abuse. REVIEW OF SYSTEMS: She has had no history of stroke. She does have asthma. She has had a peptic ulcer in the past. She was diagnosed with hepatitis C, she is awaiting treatment. No history of kidney disease, cancer, chronic skin condition, psychiatric illness. She does have history of restless legs syndrome. PHYSICAL EXAMINATION: GENERAL: Revealed a middle-aged female lying in bed. [place] [address] CONSULTATION Name: RUY CANDELARIA Room: [address]#: [id number] Admission: 02/04/18 Attend Phys: Walker Fiore MD Discharge: 02/05/18 Date of : 55 Report #: [id number] VITAL SIGNS: She has a blood pressure of 140/70, her pulse is 80. She is afebrile. HEENT: She was anicteric, conjunctivae pink. Mucous membranes moist. NECK: Veins nondistended. No carotid bruits. CHEST: Clear to auscultation. CARDIAC: Regular rate and rhythm. No significant murmur. ABDOMEN: Soft, nontender. EXTREMITIES: Had no edema. Dorsalis pedis pulse 2+ bilaterally. SKIN: Warm, dry. NEUROLOGIC: Nonfocal. LYMPHATIC: No adenopathy. MUSCULOSKELETAL: No joint effusion. RADIOLOGICAL DATA: Her ECG shows a sinus rhythm with up to 0.[address] segment depression in lead II, aVF as well as V4, V5 and V6. LABORATORY DATA: Sodium 133, creatinine 0.8, glucose 194. Liver function studies are normal. Troponin 0.06. Her white blood cell count 14.2, hemoglobin 12.7. IMPRESSION AND RECOMMENDATIONS: 1. Possible acute coronary syndrome. Recommend cardiac catheterization. 2. Hypertension. The patient has been on an BRIT inhibitor, diuretic. 3. Restless legs syndrome. 4. Tobacco abuse. 5. History of hepatitis C. <ELECTRONICALLY SIGNED> By: Cuco May MD, [facility] 02/05/18 1640 1240 Diona May MD, [facility] /nt
== END 2018-02-05 12:50 | disposition home or self-care (01) ==
LOC: M.ERS 08:45 → M.TBA-ER 09:46 → M.2W 09:46
PROVIDERS: Emergency Medicine Emergency Medical Services; ADMIT Internal Medicine
DX: I25.110 Atherosclerotic heart disease of native coronary artery with unstable angina pectoris (principal); I10 Essential (primary) hypertension; J44.9 Chronic obstructive pulmonary disease, unspecified; K26.9 Duodenal ulcer, unspecified as acute or chronic, without hemorrhage or perforation; G25.81 Restless legs syndrome; F17.210 Nicotine dependence, cigarettes, uncomplicated; K55.9 Vascular disorder of intestine, unspecified; E11.9 Type 2 diabetes mellitus without complications; Z90.89 Acquired absence of other organs; Z98.890 Other specified postprocedural states; Z90.710 Acquired absence of both cervix and uterus; Z72.89 Other problems related to lifestyle; Z86.19 Personal history of other infectious and parasitic diseases

== ENCOUNTER 2018-02-16 16:01 | Inpatient (IN) | payer MEDICAID ==
[~2018-02-16] VITALS: Ht 172.7 cm; Wt 70.9 kg
[~2018-02-16 16:01] MED LIST changes: +ASPIR 8181 MG PO; +CLOPIDOGREL75 MG PO; +LIPITOR 20 MG T20 M1 PO; +NITROGLYCERIN0.4 MG SUBLING; +PROTONIX40 M1 PO
[2018-02-16 16:05] VITALS: BP 99/74
[2018-02-16 16:35] LABS: ABSOLUTE BASOPHILS 0.1 thou/uL (0.0-0.2); ABSOLUTE EOSINOPHILS 0.2 thou/uL (0.0-0.7); ABSOLUTE LYMPHOCYTES 2.8 thou/uL (0.8-5.3); ABSOLUTE NEUTROPHILS 12.2 thou/uL (1.6-8.1); BASOPHILS 0.7 %; EOSINOPHILS 1.1 %; HEMATOCRIT 33.5 % (37.0-47.0); HEMOGLOBIN 10.4 gm/dL (12.0-15.0); LYMPHOCYTES 17.2 %; MCH 23.7 pg (26.0-34.0); MCHC 31.1 g/dL (28.0-37.0); MCV 76.1 fL (80.0-100.0); MONOCYTES 5.9 %; MPV 7.9 fl. (7.2-11.1); NUCLEATED RBCS 0 /100WBC; PLATELET COUNT* 272 thou/uL (150-400); POLYS 75.1 %; RDW-CV 16.9 % (10.5-14.5); WBC 16.2 thou/uL (4.0-11.0)
[2018-02-16 16:47] LABS: ANION GAP 7 mmol/L (7-16); BUN 18 mg/dL (7-18); CALCIUM 8.8 mg/dL (8.5-10.1); CHLORIDE 100 mmol/L (98-107); CO2 26 mmol/L (21-32); GLUCOSE 143 mg/dL (70-99); POTASSIUM 3.5 mmol/L (3.5-5.1); SODIUM 133 mmol/L (136-145)
[2018-02-16 16:50] LABS: APTT 29.6 Seconds (25.0-31.3); PROTIME 10.1 Seconds (9.20-11.50)
[2018-02-16 16:57] LABS: ALBUMIN 3.1 g/dL (3.4-5.0); ALKALINE PHOSPHATASE 97 U/L (46-116); NT-PRO BRAIN NAT PEPTIDE 390 pg/mL (<300); SGOT 21 U/L (15-37); SGPT 24 U/L (30-65); TOTAL BILIRUBIN 0.6 mg/dL (<0.1-1.0); TOTAL PROTEIN 7.1 g/dL (6.4-8.2); TROPONIN-I LEVEL <0.06 ng/mL (<0.06)
--- NOTE | 2018-02-16 17:00 | NUR ---
DR JARA NOTIFIED OF LOW B/P. FLUIDS ORDERED AND STARTED
[2018-02-16 19:05] VITALS: BP 107/51
[2018-02-16 19:15] VITALS: BP 111/57
[2018-02-16 20:00] VITALS: BP 112/59
[2018-02-17] VITALS: BP 114/52
[2018-02-17 04:00] VITALS: BP 104/52
--- NOTE | 2018-02-17 06:09 | NUR ---
ASSUMED CARE OF PT AFTER REPORT AT 1930. PT A&OX4 BUT LETHARGIC FIRST HALF OF SHIFT. VSS. PHYSICAL ASSESSMENT COMPLETED AND CHARTED. PT ON O2 VIA NC AT 2LPM WITH 94%. PT TRACING SR ON TELE. PT REMAINED AND RESTED WELL ON BED.PT STATED HAVE NOT PASSED URINE SINCE SUNDAY.BLADDER SCAN SHOWS [address].-DR GERMAIN INFORMED WITH NEW ORDER. URO CONSULTED-COOPER CATHETER INSERTED WITH 800 CC OUTPUT. PT COMPLAINED OF LOWER BACK PAIN WITH PAIN SCALE OF 9/10-DR GERMAIN INFORMED WITH NEW ORDER. PAIN MEDS GIVEN PER OCT WITH PARTIAL RELIEF. HOURLY ROUNDING OBSERVED. HS REST AND SAFETY GOALS ACHIEVED. DEEP PURPLE BRUISING NOTED ON RIGHT ARM- PHOTOGRAPH TO BE TAKEN PER UNIT PROTOCOL.CALL LIGHT WITHIN REACH.BED ALARM ON. BED IN LOW POSITION.
--- NOTE | 2018-02-17 07:15 | NUR ---
CHANGE OF SHIFT BEDSIDE REPORT GIVEN PATIENT SEEN AT BEDSIDE IN BED RESTING ASSUMED PATIENT CARE
[2018-02-17 08:00] VITALS: BP 108/51
[2018-02-17 11:23] VITALS: BP 116/53
--- NOTE | 2018-02-17 13:13 | CON ---
[address] [address] CONSULTATION Name: RUY CANDELARIA Room: [address] IN .R.#: [id number] Admission: 02/16/18 Attend Phys: Lauren Banegas Discharge: Date of : 55 Report #: [id number] THIS REPORT FOR: //name// CC: DARIUS physician/PCP Efra Patel HISTORY OF PRESENT ILLNESS: I was asked by Dr. Patel to see this 62-year-old white female in cardiology consultation for evaluation and treatment of chest pain as well as shortness of breath. This lady has known coronary artery disease. She had a coronary stent in her right coronary artery [address] May at this institution. She did have 50% lesion in her mid to distal LAD and in her circumflex that was unstented. She says her current chest pain is not like her previous chest pain, which she described as severe indigestion. This lady additionally has hypercholesterolemia and essential hypertension. She has COPD and asthma. She has tobacco abuse. She smoked 2 packs a day from the age of 9 until recently. She says she is only smoking 2 cigarettes a day now. She has been short of breath with some chest discomfort, really said she had her stenting. It has gotten progressively worse. The chest discomfort is typically with coughing. She has been having a lot of coughing and has been producing yellow-green sputum. She often gets her discomfort when she does walk her dogs. She says the discomfort is worse with activity and better with rest. Does not occur at rest. There is associated shortness of breath and nausea as well as sweating. She says the discomfort is aggravated with food, but also relieved by food. Says it is better with nitroglycerin, pain, she says discomfort does go up into her neck and shoulders. She is supposed to be taking aspirin and Plavix; however, I am somewhat suspicious of her medical compliance. She does have chronic dyspnea on exertion as well as chronic PND. She does not have orthopnea or edema. She has had 3 episodes of nearly passing out when she walks her dogs, but I think that was before her stents. She denies diabetes, but does have hypercholesterolemia and high blood pressures, no family history of coronary artery disease. She has not had renal disease or peripheral vascular disease. She says she does have pain in her legs when she walks. She has had some open and nonhealing wounds on her legs. She has not had strokes or TIAs. She denies any family history or significant family history. PAST MEDICAL HISTORY: As described above. SOCIAL HISTORY: She is . She only has an occasional beer when she has tacos or pizza. She says she smokes 2 cigarettes a day. She says she rarely has a beer. ALLERGIES: She has no known allergies. MEDICATIONS: List is extensive and includes p.r.n. albuterol, amlodipine 10 mg daily, aspirin 81 mg daily, atorvastatin 20 mg at bedtime, Plavix 75 mg daily, Flexeril 10 mg t.i.d. p.r.n. muscle spasms, Advair 500/50 one puff b.i.d., Neurontin 600 mg t.i.d., ibuprofen 600 mg p.r.n. pain, [facility] [address] [place] [address] CONSULTATION Name: RUY CANDELARIA [facility] [place]#: [id number] Admission: 02/16/18 Attend Phys: Lauren Banegas Discharge: Date of : 55 Report #: [id number] lisinopril/hydrochlorothiazide 20/25 mg daily, p.r.n. nitroglycerin, pantoprazole 40 mg daily, Mirapex 0.25 mg at bedtime for restless legs, Carafate 1 gram q.i.d., Restoril 15 mg at bedtime and Spiriva 18 mcg cap daily as well as tramadol 50 mg p.r.n. pain. REVIEW OF SYSTEMS: Positive for cough, sputum production, pneumonia, emphysema, asthma, wheezing, palpitations, chest discomfort, shortness of breath with exercise, shortness of breath lying down, waking up short of breath, nearly passing out, vomiting, ulcers, painful burning with urination, uterine cancer, seasonal allergies, medical allergies, anxiety, arthritis, rashes, hives. She wears reading glasses. Sometimes she has bleeding from her nose. She has full dentures. Otherwise, review of systems is negative for some 25 different complaints in 14 different system categories. Please see review of system form for details and negatives in review of systems. So systems reviewed include central nervous system, general, respiratory, cardiovascular, endocrine, gastrointestinal, genitourinary, hematologic, lymphatic, allergic, immunologic, psychiatric, musculoskeletal, skin, eyes, ears, nose, mouth, and throat. PHYSICAL EXAMINATION: GENERAL: She presents as a well-developed, well-nourished, white female in no acute distress. VITAL SIGNS: Pulse is 60 and regular, blood pressure is 104/52, respirations 19 and regular and temperature is 97.9 degrees. HEENT: Her head is atraumatic. Eyes clear. NECK: Supple. There is no jugular venous distention or hepatojugular reflux. Thyroid is not enlarged. There is no adenopathy. SKIN: Warm and dry. Mucous membranes are moist. LUNGS: Reveal coarse breath sounds bilaterally with an increased expiratory phase. There were no mathieu wheezes today. Breath sounds were quite course; however, breath sounds were diminished in all lung mcgregor. Expiratory phase was prolonged and there were particularly diminished breath sounds in both bases. HEART: Revealed somewhat distant first and second heart sound. There were no murmurs, rubs, thrills, heaves or gallops. PMI is not displaced. Rhythm is regular, rate was approximately 68. ABDOMEN: Soft, flat, nontender, no palpable masses, no organomegaly. EXTREMITIES: Reveal no cyanosis, clubbing or edema. NEUROLOGIC: The patient mentated normally, talked normally, moved all extremities normally. LABORATORY DATA: Her chest x-ray revealed emphysematous changes with hyperinflation, no acute process. Her EKG revealed normal sinus rhythm, possible left atrial enlargement, but no acute changes. EKG on 02/17/2018 that is the day after admission was unchanged. Troponins have been negative x 2. NT-proBNP was 390. A chest x-ray was as described above. A CT angiogram of the chest revealed no evidence of pulmonary embolus or aortic dissection. There were bilateral lower lobe airspace infiltrates, left greater than right, which [facility] [address] [place] [address] CONSULTATION Name: TEAGANRUY Purvis Room: [address] IN [facility]#: [id number] Admission: 02/16/18 Attend Phys: Lauren Banegas Discharge: Date of : 55 Report #: [id number] may represent pneumonia, atelectasis cannot be excluded, I presume. IMPRESSION: 1. Chest pain and shortness of breath, which could be secondary to pneumonia or coronary artery disease. 2. History of coronary artery disease. 3. Hypercholesterolemia. 4. Status post recent coronary stent. 5. Essential hypertension. 6. Chronic obstructive pulmonary disease. 7. Asthma. 8. Tobacco abuse. 9. Possible pneumonia. RECOMMENDATION: I would probably treat her for pneumonia. Also, I would get a nuclear stress test and an echo. If the stress test is negative, it will be helpful. A positive stress test may not be helpful, particularly in the right coronary distribution as reversible defects may persist for more than 2 weeks following angioplasty. Thank you very much for asking me to see the patient. If there are any questions, please feel free to contact me. <ELECTRONICALLY SIGNED> By: Eileen Romano MD, [facility] 02/17/18 1313 [id number]. Sarthak Romano MD, FAC /nt
[2018-02-17 15:56] VITALS: BP 115/42
--- NOTE | 2018-02-17 18:43 | NUR ---
PATIENT REMAINS A AND O X 4 SR LUNGS CTA/DIM GROUND HAND COUGH O2 2L NC O2 SAT MID 90S GOOD APPETITE LAST BM T-2 COOPER TO DD DARK YELLOW URINE UP WITH 1 ASSIST BATHROOM/CHAIR R ARM BRUISE IV R FA 22 GA IVF NS 100CC ORDERS FOR CARDIOLYTE STRESS TEST AND 2D ECHO 02/18 C/O BACK PAIN TREATED WITH ULTRAM WITH RELIEF ABN LABS WBC 16.2, NA 133, BNP 390 CALL LIGHT IN REACH AND INSTRUCTION GIVEN AND FOLLOWED
[2018-02-17 20:00] VITALS: BP 136/61
[2018-02-18 00:02] VITALS: BP 115/51
[2018-02-18 03:42] VITALS: BP 135/66
--- NOTE | 2018-02-18 05:22 | NUR ---
ASSUMED CARE OF PT AFTER REPORT AT 1930. PT A&OX4. VSS. PHYSICAL ASSESSMENT COMPLETED AND CHARTED. PT ON O2 VIA NC AT 2LPM WITH 95% O2 SAT. PT TRACING SR ON TELE. PT UP WITH 1 ASSIST. INSTRUCTED ON NPO POST MIDNIGHT-FOR STRESS TEST TODAY.COMMUNICATES UNDERSTANDING. PT C/O OF BACK PAIN AND HEADACHE WITH PAIN SCALE OF 10/10-DUE SCHEDULED AND PRN MEDS GIVEN WITH NO RELIEF. DR BRIONES INFORMED WITH NEW ORDER.HYDROCONE/APAP GIVEN PER OCT WITH PARTIAL RELIEF.PT HAD ONE EPISODE OF N/V-DUE ANTIEMETIC MED GIVEN PER OCT.HOURLY ROUNDING OBSERVED. HS REST AND SAFETY GOALS ACHIEVED. CALL LIGHT WITHIN REACH. BED IN LOW POSITION.
[2018-02-18 08:00] VITALS: BP 130/52
[2018-02-18 13:22] VITALS: BP 141/60
[2018-02-18] MEDS ORDERED: AZITHROMYCIN 2250 MG PO ×2 (13:40→15:06)
[2018-02-18] MEDS ORDERED: KEFLEX500 M1 PO ×2 (13:40→15:04)
[2018-02-18] MEDS ORDERED: PREDNISONE 10 M10 MG PO ×2 (13:47→15:09)
--- NOTE | 2018-02-18 14:30 | NUR ---
RECEIVED REPORT FROM KYLEE LUNDBERG. ASSUMED CARE OF PT AROUND 0730. PT A&O X4. VSS. O2 SAT 95% ON 2L NC. SOURCER IN PLACE TRACING SR. AM ASSESSMENT AND VITALS COMPLETED CHARTED. IV TO RIGHT FA INTACT AND NOW SALINE LOCKED. PT HAS COMPLETED STRESS TEST THIS SHIFT. DC LATER TODAY PENDING STRESS TEST RESULTS. PT EATING AND DRINKING WITHOUT ISSUE. FOELY IN PLACE TO DD, URINE YELLOW. NO BM SO FAR TODAY. PT HAS REPORTED BACK PAIN THAT HAS BEEN MANGED WITH PO PAIN MEDICATION WITH PARTIAL RELIEF. PT CURRENTLY RESTING IN BED WATCHING TV. FALL PRECAUTIONS IN PLACE. CALL LIGHT IS WITHIN REACH, HOURLY ROUNDING PERFORMED. WCTM.
--- NOTE | 2018-02-18 14:43 | EKG ---
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
--- NOTE | 2018-02-18 14:50 | EKG ---
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
--- NOTE | 2018-02-18 15:17 | NUR ---
Pt is known to this CM from previous hospital stay. Pt is A&O. Resides at home alone. Pt's family provides inhome care services, paid through her Medicaid. Pt has a walker that she can use if needed. No hx of HH or SNF. Goal is to return home at [place]. Following.
[2018-02-18 15:40] VITALS: BP 141/60
[2018-02-18 16:14] VITALS: BP 129/49
[2018-02-18] MEDS ORDERED: TYLENOL325 MG PO (17:11)
--- NOTE | 2018-02-18 18:40 | NUR ---
RESULTS OF STRESS TEST CAME BACK NEGATIVE. PT ABLE TO DC. DISCHARGE COMPLETED CHARTED. DISCHARGE SUMMARY AND CARE NOTES GONE OVER WITH PT. PT COMMUNICATES UNDERSTANDING. SCRIPTS GIVEN. PT AWARE OF F/U APPOINTMENTS WITH PCP AND HER UROLOGIST. IV AND ICE GRINDER REMOVED. PT SENT HOME WITH FOELY CATHETER PER ORDERS FROM DR GERMAIN. PT EDUCATED ON CATHETER CARE, PT COMMUNICATES UNDERSTANDING AND ABLE TO DO RETURN DEMONSTRATION. ALL BELONGINGS GATHERED AND SENT WITH PT. PT LEFT UNIT WITH NURSING STAFF. PT LEFT HOSPITAL IN CAR WITH DAUGHTER.
--- NOTE | 2018-02-19 15:37 | CARDNUC ---
[place] [address] CARDIAC NUCLEAR IMAGING REPORT Name: RUY CANDELARIA Room: [address]#: [id number] Admission: 02/16/18 Attend Phys: Efra Patel Discharge: 02/18/18 Date of : 55 Date of Service: 02/19/18 1537 Report #: [id number] THIS REPORT FOR: //name// ADDENDUM APPROVED REPORT Study performed: 02/17/2018 11:52:00 Indication: Chest pain, Dyspnea, CAD s/p PCI Patient Location: In-Patient Room #: 222 Stress Tech: Brenda Bran Stress Nurse: Ameena Dale RN Ht: 5 ft 8 in Wt: 162 lbs BSA: 1.87 m2 BMI: 24.62 Medical History Medical History: CAD s/p stent Medications: amlodipine, lisinopril, asa Allergies: No known drug allergies Cardiac Risk Factors: Age, HTN, Hyperlipidemia, Current Smoker Previous Cardiac Procedures: PCI Exercise History: Sedentary Resting Data Rest SPECT myocardial perfusion imaging was performed in supine position 30 minutes following the intravenous injection of 10.8 mCi of Tc-99m Sestamibi. Time of rest injection: 10:05 The images were gated to evaluate regional wall motion and calculate left ventricular ejection fraction. Administration Route: IV Administration Site: Right Wrist Pharmacologic Stress Pharmacologic stress test was performed by injecting Regadenoson 0.4 mg IV push over 10-15 seconds immediately followed by the intravenous injection of 35.6 mCi of Tc-99m Sestamibi. Time of stress injection: 11:45 Time of stress imagin:00 Administration Route: IV Administration Site: Right Wrist Heart Rate at time of stress injection: 101 bpm. The images were gated to evaluate regional [place] [address] CARDIAC NUCLEAR IMAGING REPORT Name: RUY CANDELARIA Room: [address]#: [id number] Admission: 02/16/18 Attend Phys: Efra Patel Discharge: 02/18/18 Date of : 55 Date of Service: 02/19/18 1537 Report #: [id number] left ventricular ejection fraction. Prone imaging was performed. Stress Test Details Stress Test: Pharmacologic stress testing performed using 0.4 mg of regadenoson per 5 mL given IV over 10 seconds. Reason for pharmacologic stress test: physical limitation. HR Resting HR: 80 bpm Max Heart Rate (APMHR): 158 bpm Max HR Achieved: 101 bpm Target HR (85% APMHR): 134 bpm % of APMHR: 63 Recovery HR: 92 bpm BP Resting BP: 142/61 mmHg Max BP: 140/53 mmHg ECG Resting ECG: Sinus Rhythm, normal EKG Stress ECG: Sinus Rhythm, normal EKG ST Change: None Arrhythmia: None Recovery ECG: Sinus Rhythm, normal EKG Recovery ST Change: None Recovery Arrhythmia: None Clinical Reason for Termination: Completed protocol Stress Symptoms: None Exercise duration: 0 min sec Exercise capacity: 1.0 METs The patient had no significant symptoms with Lexiscan infusion. Stress ECG Conclusion Baseline 12-lead electrocardiogram showed normal sinus rhythm with no significant ST or T wave abnormalities. EKGs obtained during and post Lexiscan infusion showed sinus rhythm with no significant ST or T wave changes compared baseline. There were no significant stress-induced arrhythmias. Study Quality Study: Good Artifact: [place] [address] CARDIAC NUCLEAR IMAGING REPORT Name: RUY CANDELARIA Room: [address]#: [id number] Admission: 02/16/18 Attend Phys: Efra Patel Discharge: 02/18/18 Date of : 55 Date of Service: 02/19/18 1537 Report #: [id number] Study Data At rest, the left ventricular ejection fraction was 80%.. Post stress, the left ventricular ejection was 80%.. TID = 1.02. Perfusion Normal left ventricular perfusion. Wall Motion Normal left ventricular wall motion. Nuclear Conclusion ECG Findings: negative for ischemia Clinical Findings: negative for ischemia Nuclear Findings: negative for ischemia Exercise Capacity: not assessed Left Ventricular Function: normal Risk Study: low Myocardial perfusion images show no defect to suggest ischemia. Left ventricular systolic function appears normal on gated studies. This is a low risk study. <Conclusion> Baseline 12-lead electrocardiogram showed normal sinus rhythm with no significant ST or T wave abnormalities. EKGs obtained during and post Lexiscan infusion showed sinus rhythm with no significant ST or T wave changes compared baseline. There were no significant stress-induced arrhythmias. <ELECTRONICALLY SIGNED> By: Carl Pearce MD, FACC 02/19/18 1537 1537 1537 Carl Pearce MD, FACC /INF
== END 2018-02-18 18:40 | disposition home or self-care (01) | DRG 190 ==
LOC: M.ERS 16:01 → M.TBA-ER 18:07 → M.2W 18:07
PROVIDERS: Family Medicine; ADMIT Internal Medicine
DX: J44.0 Chronic obstructive pulmonary disease with (acute) lower respiratory infection (principal); J18.9 Pneumonia, unspecified organism; J44.1 Chronic obstructive pulmonary disease with (acute) exacerbation; E78.00 Pure hypercholesterolemia, unspecified; I25.10 Atherosclerotic heart disease of native coronary artery without angina pectoris; I10 Essential (primary) hypertension; G25.81 Restless legs syndrome; R33.9 Retention of urine, unspecified; F17.210 Nicotine dependence, cigarettes, uncomplicated; W18.39XA Other fall on same level, initial encounter; Z95.5 Presence of coronary angioplasty implant and graft; Z79.2 Long term (current) use of antibiotics; Z79.82 Long term (current) use of aspirin; Z79.899 Other long term (current) drug therapy; Z90.710 Acquired absence of both cervix and uterus; Z90.711 Acquired absence of uterus with remaining cervical stump; Z80.9 Family history of malignant neoplasm, unspecified; Y93.89 Activity, other specified; Y92.098 Other place in other non-institutional residence as the place of occurrence of the external cause; Y99.8 Other external cause status

== ENCOUNTER 2018-06-02 18:45 | Inpatient (IN) | payer MEDICAID ==
[~2018-06-02] VITALS: Ht 172.7 cm; Wt 74.8 kg
[~2018-06-02 18:45] MED LIST changes: +AZITHROMYCIN 2250 MG PO; +KEFLEX500 M1 PO; +TYLENOL325 MG PO
[2018-06-02 19:00] VITALS: BP 182/52
[2018-06-02 19:38] LABS: HEMATOCRIT 38.2 % (37.0-47.0); HEMOGLOBIN 12.3 gm/dL (12.0-15.0); MCH 24.2 pg (26.0-34.0); MCHC 32.2 g/dL (28.0-37.0); MCV 75.2 fL (80.0-100.0); NUCLEATED RBCS 0 /100WBC; PLATELET COUNT* 295 thou/uL (150-400); RBC 5.08 mil/uL (4.20-5.00); RDW-CV 20.7 % (10.5-14.5)
[2018-06-02 19:49] LABS: CALCIUM 8.3 mg/dL (8.5-10.1); CREATININE 0.9 mg/dL (0.6-1.3)
[2018-06-02 19:57] LABS: INR 1.2; PROTIME 11.8 Seconds (9.20-11.50)
[2018-06-02 20:01] LABS: TOTAL BILIRUBIN 0.5 mg/dL (<0.1-1.0); TOTAL PROTEIN 4.9 g/dL (6.4-8.2)
[2018-06-02 20:03] LABS: ANISOCYTOSIS 2+; HYPOCHROMASIA 1+; MACROCYTES Occasional; MICROCYTES 1+; PLATELET ESTIMATE ADEQUATE
[2018-06-02 20:04] LABS: POIKILOCYTOSIS Occasional; TOXIC GRANULATION 2+
[2018-06-02 20:26] LABS: BE 0.3 mmol/L (-2 to +3); HCO3 24.4 mmol/L (22.0-26.0); PCO2 37.3 mmHg (35.0-45.0); pH 7.433 (7.340-7.450)
[2018-06-02 20:29] LABS: PO2 44.4 mmHg (75.0-100.0)
[2018-06-02 22:00] LABS: URINE BILIRUBIN NEGATIVE (Negative); URINE BLOOD NEGATIVE (Negative); URINE CLARITY CLEAR; URINE COLOR YELLOW; URINE GLUCOSE-RANDOM NEGATIVE (Negative); URINE KETONES NEGATIVE (Negative); URINE LEUKOCYTES-REFLEX NEGATIVE (Negative); URINE NITRITE-REFLEX NEGATIVE (Negative); URINE PROTEIN TRACE (Negative); URINE UROBILINOGEN 0.2 E.U./dl (0.2-1.0)
[2018-06-02 23:15] VITALS: BP 114/53
[2018-06-02 23:30] VITALS: BP 114/49
[2018-06-03 01:42] LABS: HEMATOCRIT 32.6 % (37.0-47.0); HEMOGLOBIN 10.6 gm/dL (12.0-15.0); MCH 24.5 pg (26.0-34.0); MCHC 32.4 g/dL (28.0-37.0); MCV 75.6 fL (80.0-100.0); MPV 7.9 fl. (7.2-11.1); RBC 4.32 mil/uL (4.20-5.00); RDW-CV 20.3 % (10.5-14.5); WBC 11.1 thou/uL (4.0-11.0)
[2018-06-03 01:53] LABS: ALBUMIN 1.6 g/dL (3.4-5.0); CALCIUM 7.6 mg/dL (8.5-10.1); CREATININE 0.7 mg/dL (0.6-1.3); TOTAL BILIRUBIN 0.4 mg/dL (<0.1-1.0); TOTAL PROTEIN 4.9 g/dL (6.4-8.2)
[2018-06-03 01:55] LABS: POTASSIUM 2.2 mmol/L (3.5-5.1)
--- NOTE | 2018-06-03 05:10 | NUR ---
PT ADMITTED TO ROOM 218 FROM ER. PT MOVED SELF TO HOSPITAL BED FROM STRETCHER WITH ASSISTANCE. BIPAP IN INTACT WITH SETTING 12/ RATE 12 ADN FIO2 90%. RESP REG ADN UNALBORED SKIN W/D LUNGS COARSE. PT C/O NAUSEA AND PT MEDICATED X2 THIS SHIFT. PT ORIENTED TO ROOM, CALL SYSTEM BED CONTROLS AND TV CONTORLS PT VERBALIZED GOOD UNDERSTANDING. VSS AND NO ACUTE CHANGES DURING SHIFT. RT PLACED PT ON 5L HIGH FLOW APPOROXIMATELY AT 0500 AND IS TOLERATING WELL. TELEMETRY PACK APPLIED WITH ALARMS SET. SPLINT TO RIGHT LOWE RLEG AND FOOT INTACT, 1+ PEDIAL PULSE NOTED.COOPER INTACT AND PATENT DRAINING LIGH TYELLOW URINE TO BEDSIDE BAG. ELECTOROLYTES BEING REPLACED PER PROTOCOL.
[2018-06-03 07:30] VITALS: BP 107/55
[2018-06-03 12:50] VITALS: BP 96/43
[2018-06-03] MEDS ORDERED: HYDROCHLOROTHIA25 M2 PO (13:19)
--- NOTE | 2018-06-03 15:00 | NUR ---
Pt is A&O. Resides at home alone at [facility]. Independent. Pt has inhome care services through her [place] [facility], 3hrs/day for 7days/week. Pt has a shower chair and grab bars. No hx of HH or SNF. Pt's goal is to return home at dc. Supportive family and friends. Per Pt, anticipate dc in a few days. Following.
[2018-06-03 16:00] VITALS: BP 119/54
--- NOTE | 2018-06-03 17:51 | EKG ---
[place] [address] ELECTROCARDIOGRAM REPORT Name: RUY CANDELARIA Room: [address] ADM IN M.R.#: [id number] Admission: 06/02/18 Attend Phys: Walker Fiore MD Discharge: Date of : 55 Report #: [id number] THIS REPORT FOR: //name// [facility] ED Test Date: 2018-06-02 Test Time: 19:36:26 Pat Name: RUY CANDELARIA Department: Room: [facility] Gender: F Staff Radiologist: : 1955 Requested By: Tara Reinoso Order Number: [id number] MD: Carl Pearce Measurements Intervals [place] Rate: 87 P: -39 VT: 126 QRS: -2 QRSD: 136 T: 61 QT: 489 QTc: 589 Interpretive Statements Sinus rhythm Multiple ventricular premature complexes Minimal ST depression, anterior leads Compared to ECG 02/17/2018 09:36:06 Ventricular premature complex(es) now present ST (T wave) deviation now present Electronically Signed On 06-03-2018 17:51:28 CDT by Carl Pearce [email or web address] <ELECTRONICALLY SIGNED> By: Carl Pearce MD, FACC 06/03/18 1751 35 35 Carl Pearce MD, FACC /EPI
--- NOTE | 2018-06-03 18:11 | NUR ---
PATIENT PROGRESSING TOWARDS GOALS. PAIN CONTROLLED WITH PRN PAIN MEDICATION. UP WITH ASSIST X1 AND A WALKER FROM BED TO RECLINER. COOPER DRAINING CLEAR YELLOW URINE TO DEPENDENT DRAIN. SHE IS TOLERATING HER DIET WELL WITHOUT ANY NAUSEA OR VOMITING. HOURLY ROUNDING CHARTED. CALL LIGHT WITHIN REACH. WILL CONTINUE TO MONITOR.
[2018-06-03 19:22] VITALS: BP 122/50
[2018-06-04] VITALS: BP 107/51
[2018-06-04 02:06] LABS: GLYCOHEMOGLOBIN (HGB A1C) 6.5 % (4.8-5.6)
[2018-06-04 04:00] VITALS: BP 99/51
[2018-06-04 04:36] LABS: HEMATOCRIT 30.9 % (37.0-47.0); HEMOGLOBIN 9.9 gm/dL (12.0-15.0); MCH 24.2 pg (26.0-34.0); MCV 75.6 fL (80.0-100.0); MPV 7.7 fl. (7.2-11.1); RBC 4.08 mil/uL (4.20-5.00); RDW-CV 20.7 % (10.5-14.5); WBC 12.5 thou/uL (4.0-11.0)
--- NOTE | 2018-06-04 04:56 | NUR ---
CARE ASSUMMED. PT AAOX4 RESP REG AND UNALBORED. SKIN W/D NO AUCTE DISTRESS NOTED. SPLINT TO RIGHT FOOT AND INTACT. PT STATED THE FOOT STILL HAS A LOT OF DISCOMFORT AT THIS TIME. TELEMETRY PACK INTACT WITH ALARMS SET. VSS AND NO ACUTE DISTRESS NOTED. PT C/O NAUSEA X1 THIS SHIFT, NO EMESIS NOTED VSS AND NO ACUTE CHANGES THIS SHIFT WILL CONTINUE TTO MONITOR.
[2018-06-04 05:00] LABS: ALBUMIN 1.6 g/dL (3.4-5.0); CALCIUM 8.2 mg/dL (8.5-10.1); CREATININE 0.7 mg/dL (0.6-1.3); MAGNESIUM 1.8 mg/dL (1.8-2.4); TOTAL BILIRUBIN 0.2 mg/dL (<0.1-1.0); TOTAL PROTEIN 4.9 g/dL (6.4-8.2)
[2018-06-04 05:04] LABS: POTASSIUM 2.6 mmol/L (3.5-5.1)
[2018-06-04 08:00] VITALS: BP 128/51
--- NOTE | 2018-06-04 08:50 | CON ---
[address] [address] CONSULTATION Name: RUY CANDELARIA Room: [address] IN M.R.#: [id number] Admission: 06/02/18 Attend Phys: Walker Fiore MD Discharge: Date of : 55 Report #: [id number] THIS REPORT FOR: //name// CC: [facility] physician/PCP Walker Fiore REQUESTING PHYSICIAN: Nora Donaldson MD REASON FOR CONSULTATION: Pneumonia, hypoxemia. DISCUSSION: The patient is a 63-year-old woman who has a history of underlying COPD, severity unknown. She has a long history of significant tobacco abuse. She presented to the emergency department yesterday with complaints of increasing shortness of breath. However, she had had increasing pain in her shoulder, as well as in her right foot. She had had a shelf fall on her foot several days prior to presentation. She had tried to tough it out. She has had prior surgery on her shoulder. Had development of the pain; however, without any obvious injury. When she was seen in the emergency department, evaluation did reveal fractures in the right metatarsals. She was not thought to have anything initially with the shoulder. However, she was found to be hypoxic, even on supplemental oxygen. The amounts were increased. A chest x-ray revealed extensive infiltrates. This was confirmed on followup CT scan done of her chest. No pulmonary emboli were seen. She was on BiPAP for period of time. Did have some vomiting earlier this morning, was taken off. She is now on nasal cannula. At the time I saw her early this afternoon, she subjectively was already feeling much better. She has had prior episodes of pneumonia in the past. She has not been O2 or steroid dependent. In the past, she has smoked upwards of 3 packs of cigarettes per day. She is now down to smoking 2 cigarettes per day. She notes when she walks her dogs in the morning and in the evening, she does have a single cigarette. No smokers in her home (she is in an apartment). Normally at home, she does her Advair twice a day, Spiriva daily and she has her nebulizer, as well as an albuterol inhaler. She is not aware of any definite fevers at home though has not felt very good. Has had some cough with scant amounts of secretions. They have generally been clear. She denies having any true chest pain. No hemoptysis. She denies any prior history of thromboembolic disease. She does not see a sales representative health insurance in this area. She did move here from [place] about 3 years ago to be closer to family. She has been afebrile since admission. O2 saturations have improved, though she did have some initial nausea and vomiting, that has improved. She was without GI complaints at the time I saw her this afternoon, [place] [address] CONSULTATION Name: TEAGANRUYSIMONA VICK Room: [address] IN .R.#: [id number] Admission: 06/02/18 Attend Phys: Walker Fiore MD Discharge: Date of : 55 Report #: [id number] PAST MEDICAL HISTORY: Remarkable for the COPD as noted. Has had prior episodes of recurrent urinary tract infections, ischemic bowel and partial small bowel obstructions, right shoulder surgery last year, prior episodes of dehydration, bowel resection, restless legs syndrome, several back surgeries, laparoscopic cholecystectomy, bladder surgery, hypertension. SOCIAL HISTORY: She is not . Lives with two dogs. Two cigarettes per day are noted. REVIEW OF SYSTEMS: A 12-point ROS was done. No positives as above. She denies any recent true chest pain, but had the pain in her shoulder (right). Not aware of any palpitations. No recent syncopal episodes. She typically is able to get around without a lot of shortness of breath. She sleeps with 1 pillow. Typically does not awaken at night short of breath. No hemoptysis. Not noted any recent blood in her stools. Had had some nausea and vomiting. She denies any diarrhea. She has not been around anyone who has been ill that she is aware of. She has had the Pneumovax, she believes at some point. She has had a flu shot for this season as well. PHYSICAL EXAMINATION: GENERAL: Appearance of a woman who looks stated age, if not older. She is sitting up in a chair with O2 running via nasal cannula. She is alert, cooperative and speaking in full sentences. HEENT: Head is normocephalic. Sclerae nonicteric. Mucous membranes are dry. NECK: Negative for adenopathy. No supraclavicular adenopathy. HEART: Regular rate, occasional extrasystole. Tones are little distant. LUNGS: Reveal breath sounds to be diminished. Prolonged expiratory phase. Few crackles heard in the bases. She has a few faint expiratory wheezes heard as well. Excursion is equal. No dullness to percussion. ABDOMEN: Appears soft, without definite hepatosplenomegaly is noted. EXTREMITIES: Her right leg is elevated. It is wrapped in a splint. Her left leg is without edema. No calf tenderness. Pulses are present, but diminished. She has no clubbing noted. SKIN: Warm and dry. NEUROLOGIC: She is alert and oriented times 3. LABORATORY AND X-RAY FINDINGS: Chest x-ray done yesterday showed some emphysematous changes. She has extensive infiltrates noted primarily on the right side. Minimal changes are noted in the left base. CT angiogram done of her chest yesterday from negative for pulmonary emboli. She has a right lower lobe pneumonia with air bronchograms noted. No pleural effusions. Additional opacities noted left lower lobe. Some upper lobes as well. On her chemistry, her sodium is 135, potassium 2.2 (being supplemented), BUN is 16, creatinine of 0.7. Transaminases normal. Blood sugars were high. ProBNP 616. Albumin only 1.6. White blood cell yesterday was 20,000 and 11,100 today. Hemoglobin 10.6, hematocrit of 32.6, platelets are normal. CRP yesterday 299[place] [address] CONSULTATION Name: CANDELARIARUY NICANOR Room: [address] IN [facility]#: [id number] Admission: 06/02/18 Attend Phys: Walker Fiore MD Discharge: Date of : 55 Report #: [id number] 4.6. Arterial blood gases done yesterday, on 3 L, she had a pH 7.43, pCO2 of 37, pO2 of 44, bicarbonate 24 with a saturation of 81%. Her blood cultures have been sent. Urine for strep pneumonia antigen is pending. This summer, she did have stress test done. Is negative for findings of ischemia. LV function was thought to be normal. MEDICATIONS: Currently here in the hospital, her medications are atorvastatin, temazepam at bedtime, Requip, budesonide twice a day, gabapentin, DuoNeb every 4 hours, ceftriaxone, levofloxacin, aspirin, Protonix, Carafate, cyclobenzaprine, tramadol p.r.n., Protonix, amlodipine, methylprednisolone 62.5 mg IV every 8 hours, p.r.n. nitroglycerin, p.r.n. ibuprofen, p.r.n. morphine, potassium replacement protocol. IMPRESSION: 1. Pneumonia. It is essentially community acquired. She is now on Rocephin and levothyroxine, which should provide good coverage. 2. Hypoxic respiratory failure. Already O2 needs have improved. 3. Chronic obstructive pulmonary disease, severity unknown. She is not O2 or steroid dependent at home. 4. Tobacco abuse. It is down to 2 cigarettes per day from 3 packs in the past. 5. History of hypertension. 6. Chronic kidney disease. RECOMMENDATIONS: 1. We will add Brovana since she is on Advair at home. 2. Continue steroids and antibiotics. 3. Wean O2 as able. 4. Long-term complete smoking cessation is advised. 5. Repeat chest x-ray in several days. <ELECTRONICALLY SIGNED> By: Josy Epperson MD 06/04/18 0850 1335 [id number] Epperson MD /nt
--- NOTE | 2018-06-04 11:45 | NUR ---
SHIRRING TENDER SPOKE TO BEBA WITH MED[employer] TO DISCUSS PRECERT FOR A KNEE SCOOTER ([facility] CODE:[id number]) FOR THE PATIENT. BEBA INFORMS THAT THE 'KNEE SCOOTER IS ONLY AVAILABLE A PURCHASE, AND SHE WILL OWN IT AFTER MEDICAID PAYS FOR IT'. IF SHE WANTS TO RENT THE KNEE SCOOTER SHE WOULD NEED TO PAY PAY FOR IT OUT OF POCKET'. D/C CANNERY WORKER INFORMED THE CM OF THIS INFO. CM WILL REMAIN AVIALABLE TO ASSIST AND FOLLOW NEEDED.
[2018-06-04 11:48] VITALS: BP 100/44
--- NOTE | 2018-06-04 12:44 | NUR ---
ASSUMED PT CARE AT 0700 PT IS ALERT AND ORIENTED X 4 PT IS DROWSY AND SLEEPING PT GIVEN PAIN MEDS PHYSICIAN IS AWARE OF PT DROWSINESS PHYSICIAN DECREASED FREQUENCY OF IV PAIN MEDS AND ORDERED TO GIVE PO PAIN MEDS FIRST, PT C/O NAUSEA GAVE PT ZOFRAN, PT IS UP WITH ASSIST X 1 PT IS A FALL RISK BED ALARM IS ON, PT IS SR ON THE MONITOR, PT HAS IV POTASSIUM RUNNING, ANTIBIOTICS ADMINISTERED, WILL CONTINUE TO MONITOR
[2018-06-04 15:40] VITALS: BP 107/44
[2018-06-04 20:00] VITALS: BP 108/38
[2018-06-04 22:11] LABS: MYCOPLASMA PNEUMONIA IgG 221 U/mL (0-99); MYCOPLASMA PNEUMONIA IgM <770 U/mL (0-769)
[2018-06-05] VITALS: BP 115/48
--- NOTE | 2018-06-05 03:01 | NUR ---
ASSUMED PT CARE AT 1930. ASSESSMENT COMPLETED CHARTED. ABLE TO MAKE NEEDS KNOW. C/O PAIN IN FOOT AND HAND FROM POTASSIUM. UP WITH 1 ASSIST WITH NON WEIGHT BEARING TO RIGHT FOOT. PT HAS INSOMNIA, HASNT SLEPT ALL SHIFT. C/O NAUSEA AND RECIEVED IV ZOFRAN X2. WILL CONTINUE TO MONITOR.
[2018-06-05 05:00] LABS: HEMATOCRIT 30.8 % (37.0-47.0); HEMOGLOBIN 10.1 gm/dL (12.0-15.0); MCH 24.8 pg (26.0-34.0); MCHC 32.7 g/dL (28.0-37.0); MCV 75.8 fL (80.0-100.0); MPV 8.2 fl. (7.2-11.1); NUCLEATED RBCS 0 /100WBC; PLATELET COUNT* 253 thou/uL (150-400); RBC 4.06 mil/uL (4.20-5.00); WBC 9.6 thou/uL (4.0-11.0)
[2018-06-05 05:18] LABS: CALCIUM 8.1 mg/dL (8.5-10.1); CREATININE 0.6 mg/dL (0.6-1.3); POTASSIUM 3.2 mmol/L (3.5-5.1)
[2018-06-05 05:51] LABS: ABSOLUTE LYMPHOCYTES 0.5 thou/uL (0.8-5.3); ABSOLUTE NEUTROPHILS 9.1 thou/uL (1.6-8.1); PLATELET ESTIMATE ADEQUATE
[2018-06-05 05:55] LABS: ANISOCYTOSIS 1+; HYPOCHROMASIA 1+; POIKILOCYTOSIS 1+; POLYCHROMASIA 1+
[2018-06-05 08:00] VITALS: BP 133/60
[2018-06-05 12:00] VITALS: BP 125/59; BP 126/70; BP 129/62
--- NOTE | 2018-06-05 15:30 | NUR ---
PATIENT CARE ASSUMED AT 0700. PATIENT AOX4. SLEEPY. PATIENT RTES PAIN 9/10 TO 10/10 THROUGHOUT SHIFT, BUT HAS BEEN SLEEPING AND CALM. VSS. REFUSED PT AND OT. DOWNGRADED TO M/S STATUS. REPORT GIVEN TO [place]. TRANSFERED TO [facility] AT 1530 BY WHEELCHAIR WITH BUSINESS PROCESS ANALYST. ALL BELONGINGS, INCLUDING CELL PHONE, TAKEN WITH PATIENT.
--- NOTE | 2018-06-05 18:45 | NUR ---
PATIENT TRANSFERRED TO ROOM 312 VIA WHEELCHAIR AT 1545. PATIENT A/O X 4. O2 IN PLACE. HAS DENIED THE NEED FOR PAIN MEDS AFTER RECEIVING PAIN MEDS PRIOR TO TRANSFER. MEDICATED FOR NAUSEA WITH RELIEF. RIGHT HAND SALINE LOCK PATENT. PATIENT WITH CAST IN PLACE TO RIGHT LEG, ELEVATED ON PILLOWS. PATIENT CONTINUES ON STEROIDS. HOURLY ROUNDING COMPLETED. CALL LIGHT WITHIN REACH. WILL CONTINUE WITH PLAN OF CARE.
[2018-06-06] VITALS: BP 156/73
[2018-06-06 08:10] VITALS: BP 167/84
[2018-06-06 08:18] LABS: CALCIUM 8.6 mg/dL (8.5-10.1); CREATININE 0.7 mg/dL (0.6-1.3); MAGNESIUM 1.8 mg/dL (1.8-2.4)
[2018-06-06 16:00] VITALS: BP 166/83
--- NOTE | 2018-06-06 19:02 | NUR ---
PATIENT RESTING IN BED. PATIENT HAS COMPLAINTS OF RIGHT LEG PAIN WITH PARTIAL RELIEF WITH PAIN MEDICATION. PATIENT HAS AND NAUSEA AND VOMITING TODAY, TREATED WITH ZOFRAN, PHENERGAN AND SCOPALAMINE PATCH. PATIENT REFUSED BREAKFAST AND LUNCH BUT ATE 10% OF DINNER. PATIENT HAS OXYGEN AT 2L/NC, AND DENIES ANY TROUBLE BREATHING. PATIENT DENIES ANY NEEDS AT THIS TIME. CALL LIGHT WITHIN REACH. WILL CONTINUE TO MONITOR.
[2018-06-06 23:27] VITALS: BP 95/67
[2018-06-07 04:39] LABS: HEMATOCRIT 38.4 % (37.0-47.0); HEMOGLOBIN 11.8 gm/dL (12.0-15.0); MCH 23.6 pg (26.0-34.0); MCHC 30.8 g/dL (28.0-37.0); MCV 76.6 fL (80.0-100.0); MPV 7.8 fl. (7.2-11.1); RBC 5.01 mil/uL (4.20-5.00); RDW-CV 21.3 % (10.5-14.5); WBC 14.6 thou/uL (4.0-11.0)
[2018-06-07 04:53] LABS: CALCIUM 7.8 mg/dL (8.5-10.1); CREATININE 0.6 mg/dL (0.6-1.3); MAGNESIUM 1.8 mg/dL (1.8-2.4); POTASSIUM 3.7 mmol/L (3.5-5.1)
--- NOTE | 2018-06-07 05:06 | NUR ---
ASSESSMENT COMPLETE. PT SLEPT MOST OF THE NIGHT. PRN PAIN MEDICATION GIVEN NEEDED. PT GIVEN ZOFRAN ONCE FOR NAUSEA. PT ABLE TO EAT SOME ICE CREAM AT HS. PT HAS IV FLUIDS INFUSING. PT IS ON 2L PER NC WITH [place] SATS. SKIN INTACT. PT IS UP ONE ASSIST TO BSC. SEE ASSESSMENT AND VITALS FOR OTHER DETAILS. CALL LIGHT WITHIN REACH, WILL CONTINUE PLAN OF CARE
[2018-06-07 08:45] VITALS: BP 153/72
[2018-06-07] MEDS ORDERED: LEVAQUIN 500 M500 M2 PO (09:25)
[2018-06-07] MEDS ORDERED: PREDNISONE 20 M20 MG PO (09:25)
[2018-06-07 11:23] VITALS: BP 153/72
--- NOTE | 2018-06-07 12:48 | NUR ---
PATIENT DISCHARGED TO HOME AT THIS TIME WITH FRIEND. PER ORTHO OK TO DC SPLINT AND UTILIZE SURGICAL SHOE WHEN OUT OF BED. PATIENT VERBALIZES UNDERSTANDING. DR. BRIONES NOTIFIED OF NO BM AND POOR APPETITE, PATIENT STILL OK TO DC FROM DR. BRIONES'S STANDPOINT. VERBALIZES UNDERSTANDING OF PAPERWORK AND SCRIPTS. IV DC'D. 02 92% ON RA. PATIENT TAKEN OUT VIA WHEELCHAIR WITH ALL BELONGINGS.
== END 2018-06-07 12:57 | disposition home or self-care (01) | DRG 177 ==
LOC: M.ERS 18:45 → M.2W 22:18 → M.TBA-ER 22:18 → M.2W 23:03 → M.3W 06-05 16:06
PROVIDERS: Emergency Medicine; Internal Medicine; Internal Medicine Pulmonary Disease; ADMIT Internal Medicine
PROC: 5A09357 Assistance with Respiratory Ventilation, Less than 24 Consecutive Hours, Continuous Positive Airway Pressure (ICD-10-PCS; principal; 2018-06-02)
DX: J15.6 Pneumonia due to other Gram-negative bacteria (principal); J96.01 Acute respiratory failure with hypoxia; R65.10 Systemic inflammatory response syndrome (SIRS) of non-infectious origin without acute organ dysfunction; J44.1 Chronic obstructive pulmonary disease with (acute) exacerbation; J44.0 Chronic obstructive pulmonary disease with (acute) lower respiratory infection; S92.331A Displaced fracture of third metatarsal bone, right foot, initial encounter for closed fracture; G25.81 Restless legs syndrome; J45.909 Unspecified asthma, uncomplicated; N18.9 Chronic kidney disease, unspecified; M19.012 Primary osteoarthritis, left shoulder; S92.341A Displaced fracture of fourth metatarsal bone, right foot, initial encounter for closed fracture; S92.351A Displaced fracture of fifth metatarsal bone, right foot, initial encounter for closed fracture; F17.210 Nicotine dependence, cigarettes, uncomplicated; I25.10 Atherosclerotic heart disease of native coronary artery without angina pectoris; I12.9 Hypertensive chronic kidney disease with stage 1 through stage 4 chronic kidney disease, or unspecified chronic kidney disease; D64.9 Anemia, unspecified; E87.6 Hypokalemia; Z90.49 Acquired absence of other specified parts of digestive tract; Z90.710 Acquired absence of both cervix and uterus; Z79.899 Other long term (current) drug therapy; Z90.711 Acquired absence of uterus with remaining cervical stump; Z80.9 Family history of malignant neoplasm, unspecified; W18.39XA Other fall on same level, initial encounter; Y93.89 Activity, other specified; Y92.098 Other place in other non-institutional residence as the place of occurrence of the external cause; Y99.8 Other external cause status

== ENCOUNTER 2018-06-09 19:52 | Inpatient (IN) | payer MEDICAID ==
[~2018-06-09] VITALS: Ht 172.7 cm; Wt 65.3 kg
[~2018-06-09 19:52] MED LIST changes: +HYDROCHLOROTHIA25 M2 PO; +LEVAQUIN 500 M500 M2 PO; +PREDNISONE 20 M20 MG PO
[2018-06-09 20:04] VITALS: BP 131/90
[2018-06-09 20:38] LABS: HEMATOCRIT 42.7 % (37.0-47.0); HEMOGLOBIN 13.3 gm/dL (12.0-15.0); MCHC 31.2 g/dL (28.0-37.0); NUCLEATED RBCS 0 /100WBC; RBC 5.54 mil/uL (4.20-5.00); RDW-CV 21.8 % (10.5-14.5); WBC 27.4 thou/uL (4.0-11.0)
[2018-06-09 20:46] LABS: ANION GAP 12 mmol/L (7-16); BUN 31 mg/dL (7-18); CALCIUM 8.8 mg/dL (8.5-10.1); CHLORIDE 97 mmol/L (98-107); CO2 26 mmol/L (21-32); CREATININE 1.2 mg/dL (0.6-1.3); GLUCOSE 173 mg/dL (70-99); SODIUM 135 mmol/L (136-145)
[2018-06-09 20:53] LABS: ALBUMIN 2.7 g/dL (3.4-5.0); ALKALINE PHOSPHATASE 63 U/L (46-116); LIPASE 487 U/L (73-393); SGOT 12 U/L (15-37); SGPT 14 U/L (30-65); TOTAL BILIRUBIN 0.5 mg/dL (<0.1-1.0); TOTAL PROTEIN 6.4 g/dL (6.4-8.2); TROPONIN-I LEVEL <0.06 ng/mL (<0.06)
[2018-06-09 20:58] LABS: PLATELET COUNT* 412 thou/uL (150-400)
[2018-06-09 21:00] LABS: ABSOLUTE LYMPHOCYTES 2.5 thou/uL (0.8-5.3); ABSOLUTE MONOCYTES 0.5 thou/uL (0.0-1.2); ABSOLUTE NEUTROPHILS 24.4 thou/uL (1.6-8.1); ANISOCYTOSIS 1+; ATYPICAL LYMPHS 3 %; HYPOCHROMASIA 1+; MACROCYTES 1+; PLATELET ESTIMATE INCREASED
[2018-06-09 23:10] VITALS: BP 136/61
[2018-06-10 04:00] VITALS: BP 107/59
[2018-06-10 08:00] VITALS: BP 125/62
--- NOTE | 2018-06-10 11:45 | EKG ---
[place] [address] ELECTROCARDIOGRAM REPORT Name: RUY CANDELARIA Room: [address] ADM IN .R.#: [id number] Admission: 06/09/18 Attend Phys: Lauren Bnaegas Discharge: Date of : 55 Report #: [id number] THIS REPORT FOR: //name// [facility] ED Test Date: 2018-06-09 Test Time: 20:52:06 Pat Name: RUY CANDELARIA Department: Room: [facility] Gender: F Assessment Director: RYANN : 1955 Requested By: Marah Juares Order Number: [id number] MD: Cuco May Measurements Intervals [place] Rate: 90 P: 75 WI: 146 QRS: 54 QRSD: 82 T: 75 QT: 367 QTc: 449 Interpretive Statements Sinus rhythm Biatrial enlargement Nonspecific T abnrm, anterolateral leads Compared to ECG 06/02/2018 19:36:26 Atrial abnormality now present Ventricular premature complex(es) no longer present Electronically Signed On 06-10-2018 11:45:33 INDUSTRIAL HYGIENE TECHNICIAN by Cuco May [email or web address] <ELECTRONICALLY SIGNED> By: Cuco May MD, FACC 06/10/18 1145 51 51 Cuco May MD, [facility] /EPI
[2018-06-10 12:00] VITALS: BP 104/53
[2018-06-10 12:01] LABS: URINE BLOOD NEGATIVE (Negative); URINE CLARITY CLEAR; URINE COLOR YELLOW; URINE GLUCOSE-RANDOM NEGATIVE (Negative); URINE KETONES 2+ (Negative); URINE LEUKOCYTES-REFLEX NEGATIVE (Negative); URINE NITRITE-REFLEX NEGATIVE (Negative); URINE PROTEIN 1+ (Negative); URINE UROBILINOGEN 0.2 E.U./dl (0.2-1.0)
[2018-06-10 12:28] LABS: URINE BILIRUBIN 1+ (Negative)
[2018-06-10 12:29] LABS: ICTOTEST (BILI CONFIRMATORY) Negative (Negative)
[2018-06-10 12:30] LABS: SQUAMOUS 0-3 Few /LPF (0-3)
[2018-06-10 12:31] LABS: BACTERIA-REFLEX 1-9 Few /HPF (None Seen); CASTS None Seen /LPF (None Seen); CRYSTALS None Seen /LPF (None Seen); URINE RBC 0-2 Rare /HPF (0-2); URINE WBC-REFLEX 0-5 Rare /HPF (0-5)
[2018-06-10 16:00] VITALS: BP 125/58
[2018-06-10 20:00] VITALS: BP 138/60
[2018-06-11] VITALS: BP 122/56
[2018-06-11 04:00] VITALS: BP 104/51
[2018-06-11 05:32] LABS: ABSOLUTE LYMPHOCYTES 0.5 thou/uL (0.8-5.3); ABSOLUTE MONOCYTES 0.2 thou/uL (0.0-1.2); ABSOLUTE NEUTROPHILS 11.9 thou/uL (1.6-8.1); BASOPHILS 0.2 %; HEMATOCRIT 37.6 % (37.0-47.0); HEMOGLOBIN 11.5 gm/dL (12.0-15.0); LYMPHOCYTES 4.1 %; MCH 24.3 pg (26.0-34.0); MCHC 30.7 g/dL (28.0-37.0); MCV 79.2 fL (80.0-100.0); MONOCYTES 1.8 %; MPV 8.1 fl. (7.2-11.1); NUCLEATED RBCS 0 /100WBC; POLYS 93.9 %; RBC 4.75 mil/uL (4.20-5.00); RDW-CV 20.5 % (10.5-14.5); WBC 12.7 thou/uL (4.0-11.0)
[2018-06-11 05:40] LABS: PLATELET COUNT* 297 thou/uL (150-400)
[2018-06-11 05:48] LABS: ALBUMIN 2.2 g/dL (3.4-5.0); CALCIUM 8.2 mg/dL (8.5-10.1); CREATININE 0.7 mg/dL (0.6-1.3); POTASSIUM 3.9 mmol/L (3.5-5.1); TOTAL BILIRUBIN 0.3 mg/dL (<0.1-1.0); TOTAL PROTEIN 5.4 g/dL (6.4-8.2)
[2018-06-11 05:54] LABS: PHOSPHORUS* 3.5 mg/dL (2.5-4.9)
[2018-06-11 08:00] VITALS: BP 175/79
[2018-06-11 11:37] VITALS: BP 144/61
[2018-06-11 20:00] VITALS: BP 116/86
[2018-06-12] VITALS: BP 125/51
[2018-06-12 04:00] VITALS: BP 125/56
[2018-06-12 07:59] LABS: HEMATOCRIT 40.8 % (37.0-47.0); HEMOGLOBIN 12.6 gm/dL (12.0-15.0); MCH 24.6 pg (26.0-34.0); MCHC 30.8 g/dL (28.0-37.0); MCV 79.7 fL (80.0-100.0); MPV 8.2 fl. (7.2-11.1); RBC 5.12 mil/uL (4.20-5.00); RDW-CV 20.4 % (10.5-14.5); WBC 9.3 thou/uL (4.0-11.0)
[2018-06-12 08:00] VITALS: BP 127/62; BP 158/93
[2018-06-12 11:02] LABS: ALBUMIN 2.6 g/dL (3.4-5.0); CALCIUM 8.4 mg/dL (8.5-10.1); CREATININE 0.8 mg/dL (0.6-1.3); TOTAL BILIRUBIN 0.3 mg/dL (<0.1-1.0); TOTAL PROTEIN 5.8 g/dL (6.4-8.2)
[2018-06-12 12:00] VITALS: BP 149/76
--- NOTE | 2018-06-12 12:52 | CON ---
[address] [address] CONSULTATION Name: RUY CANDELARIA Room: [address] IN .R.#: [id number] Admission: 06/09/18 Attend Phys: Lauren Banegas Discharge: Date of : 55 Report #: [id number] THIS REPORT FOR: //name// CC: Vinny Patel HISTORY OF PRESENT ILLNESS: This is a pleasant 63-year-old female with past medical history of small-bowel obstruction and requiring exploratory laparotomy and surgery who is presenting with nausea and vomiting. The patient reports symptoms have become progressively worse over the last few days. She reports throwing up about 10 times prior to coming to the hospital. The patient reports epigastric abdominal pain. This pain has since been resolved after an NG tube was placed and her stomach was decompressed. The patient reports although this is somewhat similar to her previous episode of bowel obstruction, her pain this time is not as bad as it was previously. She denies any diarrhea. The patient denies passing any stool or gas in the last few hours. The patient denies any hematemesis. The patient does report taking NSAIDs intermittently, but this is only about 1-2 times per week. PAST MEDICAL HISTORY: The patient has a history of osteoarthritis and fracture of the right ankle. PAST SURGICAL HISTORY: The patient had ankle surgery, remote history of cholecystectomy, bladder sling surgery, exploratory laparotomy with bowel resection in 2017. FAMILY HISTORY: There is no family history of colorectal cancer. SOCIAL HISTORY: The patient smokes. She reports she smokes only two cigarettes per day. Denies alcohol or recreational drug use. REVIEW OF SYSTEMS: Comprehensive 10-point review of systems is negative except for what was mentioned here. PHYSICAL EXAMINATION: VITAL SIGNS: Temperature 36.6, pulse rate 76, respirations 16, blood pressure 125/58, pulse ox 96%. GENERAL: The patient is alert, awake, oriented x 3. HEENT: Pupils are equal, round, reactive to light and accommodation. Mucous membranes are moist. LUNGS: Clear to auscultation. CARDIOVASCULAR: Rate and rhythm regular. S1, S2 present. ABDOMEN: Soft. There is no tenderness. Bowel sounds are absent. There is no guarding or rigidity. NG tube is in place and it appears that the patient has aspirated approximately 5 liters of fluid since admission. EXTREMITIES: Warm and well perfused. Ecchymosis noted on the right lower extremity. Peripheral [place] [address] CONSULTATION Name: RUY CANDELARIA Room: [address]#: [id number] Admission: 06/09/18 Attend Phys: Lauren Banegas Discharge: Date of : 55 Report #: [id number] NEUROLOGIC: There is no focal neurological deficit. LABORATORY DATA: Hemoglobin 13.3, hematocrit 42.7, platelet count 412, WBC count 27.4. Sodium 135, potassium 4.0, chloride 97, bicarbonate 26, BUN 31, creatinine 1.2, AST 12, ALT 14, alkaline phosphatase 63, lipase 487. Abdomen and pelvis CT demonstrates small-bowel obstruction with distention of stomach with fluid and proximal small bowel measuring as much as 5.8 cm. Distal small bowel is decompressed, but there is no clear transition point. ASSESSMENT AND PLAN: This is a very pleasant 63-year-old female with history of bowel obstruction, presenting with recurrent symptoms of bowel obstruction. NG decompression in place. The patient appears to be feeling better and reports that she is beginning to feel hungry. I have advised that we will continue to place her on NG intermittent suction overnight, clamp the NG tube in the morning and see if she tolerates it. If the patient is able to tolerate it, then we will place her on clear liquid diet and advance her as tolerated. <ELECTRONICALLY SIGNED> By: Jordon Rodriguez MD 06/12/18 1252 [id number] Rodriguez MD /nt
[2018-06-12 16:04] VITALS: BP 129/55
[2018-06-12 18:18] LABS: AMP/METHAMP Negative (Negative); BARBITURATES Negative (Negative); BENZODIAZEPINES POSITIVE (Negative); COCAINE Negative (Negative); METHADONE Negative (Negative); OPIATES POSITIVE (Negative); PCP Negative (Negative); THC Negative (Negative)
[2018-06-12 20:00] VITALS: BP 114/58
[2018-06-13] VITALS: BP 123/57
[2018-06-13 04:00] VITALS: BP 122/63
[2018-06-13 08:30] VITALS: BP 111/63
[2018-06-13] MEDS ORDERED: MIRALAX17 GM PO (10:08)
[2018-06-13] MEDS ORDERED: NORCO 5-325 TA1 EACH PO (10:08)
[2018-06-13 10:54] LABS: CALCIUM 8.7 mg/dL (8.5-10.1); CREATININE 0.7 mg/dL (0.6-1.3); POTASSIUM 3.7 mmol/L (3.5-5.1)
[2018-06-13 13:31] VITALS: BP 111/63
[2018-06-13 14:30] VITALS: BP 111/63
== END 2018-06-13 14:30 | disposition home or self-care (01) | DRG 388 ==
LOC: M.ERS 19:52 → M.2W 22:10 → M.TBA-ER 22:10 → M.2W 23:08 → M.ORTHSURG 06-13 07:43
PROVIDERS: Internal Medicine; Nurse Practitioner Family; Surgery; ADMIT Internal Medicine
PROC: 0D9670Z Drainage of Stomach with Drainage Device, Via Natural or Artificial Opening (ICD-10-PCS; principal; 2018-06-12)
DX: K56.600 Partial intestinal obstruction, unspecified as to cause (principal); J18.9 Pneumonia, unspecified organism; E87.1 Hypo-osmolality and hyponatremia; J44.0 Chronic obstructive pulmonary disease with (acute) lower respiratory infection; K56.7 Ileus, unspecified; I10 Essential (primary) hypertension; G25.81 Restless legs syndrome; J45.909 Unspecified asthma, uncomplicated; E87.6 Hypokalemia; M19.90 Unspecified osteoarthritis, unspecified site; F17.210 Nicotine dependence, cigarettes, uncomplicated; K59.00 Constipation, unspecified; I25.10 Atherosclerotic heart disease of native coronary artery without angina pectoris; Z79.82 Long term (current) use of aspirin; Z79.899 Other long term (current) drug therapy; Z90.49 Acquired absence of other specified parts of digestive tract; Z90.710 Acquired absence of both cervix and uterus; Z87.81 Personal history of (healed) traumatic fracture; Z90.711 Acquired absence of uterus with remaining cervical stump

== ENCOUNTER 2018-10-16 20:48 | Inpatient (IN) | payer MEDICAID ==
[~2018-10-16] VITALS: Ht 152.4 cm; Wt 85.7 kg
--- NOTE | ~2018-10-16 | CON ---
[address] [address] CONSULTATION Name: RUY CANDELARIA Room: [address] IN M.R.#: [id number] Admission: 10/17/18 Attend Phys: Adithya Goldsmith MD Discharge: Date of : 55 Report #: [id number] THIS REPORT FOR: //name// CC: Corby Goldsmith DATE OF SERVICE: 10/17/2018 CONSULTING PHYSICIAN: Dr. Adithya Goldsmith. REASON FOR NEPHROLOGY CONSULTATION: Post-code acute kidney injury. REASON FOR ADMISSION: Abdominal pain. HISTORY OF PRESENT ILLNESS: This is a 63-year-old female with past medical history of hypertension, COPD, ischemic colitis and other medical problems who came in with abdominal pain on 10/16/2018, presented to the ER. She was found to have perforated bowel, was taken to surgery immediately, had exploratory laparotomy, Efrain's procedure, colostomy creation, sigmoid colon resection. She was also found to be in DKA. After surgery, she became hypotensive. She was transferred to the ICU where she did have a PEA arrest yesterday morning, was resuscitated successfully. The patient is still intubated and sedated and she has been making good urine, 800 mL overnight. Her blood pressures are now better. She is off of pressors. Creatinine became 1.5 after the code, but since then has improved to 1.1. She does have some hyperchloremic metabolic acidosis. She is on antibiotics as per ID. She is on vancomycin and Zosyn. Her ejection fraction was found to be 60-65% and Cardiology has also been following her. ALLERGIES: No known allergies. REVIEW OF SYSTEMS: She is intubated and sedated, cannot obtain. HOME MEDICATIONS: Include hydrocodone, polyethylene glycol, sucralfate, atorvastatin, nitroglycerin, pantoprazole, aspirin, hydrochlorothiazide, pramipexole, temazepam, gabapentin, cyclobenzaprine, fluticasone, albuterol, ibuprofen, Ditropan, acetaminophen. PAST MEDICAL AND SURGICAL HISTORY: Includes cholecystectomy, back surgery, ischemic colitis, hypertension, ____, COPD, hysterectomy, right shoulder surgery, exploratory laparotomy, duodenal ulcer, UTI, asthma, bladder sling procedures and placement, right foot fracture. FAMILY HISTORY: The patient[place] [address] CONSULTATION Name: RUY CANDELARIA Room: [address]#: [id number] Admission: 10/17/18 Attend Phys: Adithya Goldsmith MD Discharge: Date of : 55 Report #: [id number] SOCIAL HISTORY: She has a history of smoking every day and alcohol use in special occasions. No history of recreational drug use. Again, this is all as per the patient's chart. PHYSICAL EXAMINATION: VITAL SIGNS: Blood pressure is 129/63, pulse ox is 96%. She is on 40% FiO2. Pulse rate is 102. She is afebrile. Respiratory rate was 24. GENERAL: She was intubated and sedated. HEAD, EYES, EARS, NOSE AND THROAT: ____ tube in place. NECK: There is no JVD. CHEST: Bilaterally clear to auscultation. No crackles or wheezing. CARDIOVASCULAR: S1, S2 normal. No murmurs. ABDOMEN: Soft, it is nondistended. Tenderness cannot be elicited and she has an ostomy present. Bowel sounds are diminished. EXTREMITIES: Lower extremities, there is no edema. NEUROLOGIC: Cannot assess. PSYCHIATRIC: She is sedated, cannot assess. LABORATORY DATA: Her creatinine is 1.1. White count was 16, hemoglobin was 8.8. Chloride was 112 and her CO2 was 16. Other labs were reviewed. IMAGING: Chest x-ray, abdominal CT was reviewed. ASSESSMENT: 1. Acute kidney injury, which happened after cardiac arrest. Creatinine 0.9-1 at baseline. 2. Acute respiratory failure after small bowel perforation, likely septic shock. 3. The patient presented with small bowel perforation, status post exploratory laparotomy, Efrain's procedure, sigmoid colon resection, colostomy creation. 4. Diabetic ketoacidosis, now resolving. 5. Hyperchloremic metabolic acidosis. 6. Lactic acidosis, has improved. 7. PEA arrest, 10/17/2018. 8. History of chronic obstructive pulmonary disease. PLAN: 1. Creatinine has improved to 1.1. 2. She has some hyperchloremic acidosis with some evidence of hyponatremia. Sodium 146, we will change her fluids to D5 water for 25 mEq of sodium bicarbonate. Creatinine has improved to 1.1. Antibiotics as per primary. She is making good bit of urine. 3. Overall, her kidney function has improved. [address] [address] CONSULTATION Name: RUY CANDELARIA Room: [address] IN M.R.#: [id number] Admission: 10/17/18 Attend Phys: Adithya Goldsmith MD Discharge: Date of : 55 Report #: [id number] I do not have anything additional to offer at this point, but please call with any questions. We will sign off for now. Discussed with the patient's nurse. By: [id number] Suarez MD /nt
[2018-10-16 20:50] VITALS: BP 137/76
[2018-10-16 21:08] LABS: HEMATOCRIT 37.3 % (37.0-47.0); HEMOGLOBIN 11.5 gm/dL (12.0-15.0); MCH 22.6 pg (26.0-34.0); MCHC 30.9 g/dL (28.0-37.0); MCV 73.3 fL (80.0-100.0); MPV 7.8 fl. (7.2-11.1); NUCLEATED RBCS 0 /100WBC; PLATELET COUNT* 240 thou/uL (150-400); RBC 5.09 mil/uL (4.20-5.00); RDW-CV 15.8 % (10.5-14.5); WBC 5.8 thou/uL (4.0-11.0)
[2018-10-16 21:38] LABS: ANION GAP 11 mmol/L (7-16); BUN 15 mg/dL (7-18); CALCIUM 8.8 mg/dL (8.5-10.1); CHLORIDE 102 mmol/L (98-107); CO2 26 mmol/L (21-32); CREATININE 0.7 mg/dL (0.6-1.3); GLUCOSE 245 mg/dL (70-99); SODIUM 139 mmol/L (136-145); TROPONIN-I LEVEL <0.06 ng/mL (<0.06)
[2018-10-16 21:43] LABS: ABSOLUTE MONOCYTES 0.1 thou/uL (0.0-1.2); ABSOLUTE NEUTROPHILS 4.8 thou/uL (1.6-8.1); PLATELET ESTIMATE ADEQUATE
[2018-10-16 21:44] LABS: ANISOCYTOSIS 1+
[2018-10-16 21:45] LABS: MICROCYTES 2+
[2018-10-16 21:46] LABS: HYPOCHROMASIA Occasional; OVALOCYTES Occasional
[2018-10-16 21:50] LABS: ALBUMIN 3.3 g/dL (3.4-5.0); ALKALINE PHOSPHATASE 117 U/L (46-116); LIPASE 40 U/L (73-393); SGOT 13 U/L (15-37); SGPT 18 U/L (30-65); TOTAL BILIRUBIN 0.2 mg/dL (<0.1-1.0)
[2018-10-16 23:11] LABS: URINE BILIRUBIN NEGATIVE (Negative); URINE BLOOD TRACE (Negative); URINE CLARITY CLEAR; URINE COLOR YELLOW; URINE GLUCOSE-RANDOM 2+ (Negative); URINE KETONES NEGATIVE (Negative); URINE LEUKOCYTES-REFLEX NEGATIVE (Negative); URINE NITRITE-REFLEX NEGATIVE (Negative); URINE PROTEIN NEGATIVE (Negative); URINE UROBILINOGEN 0.2 E.U./dl (0.2-1.0)
[2018-10-17] VITALS (66 sets, daily range): BP systolic 63–173; BP diastolic 27–151
[2018-10-17 05:10] LABS: ABSOLUTE LYMPHOCYTES 0.4 thou/uL (0.8-5.3); ABSOLUTE MONOCYTES 0.4 thou/uL (0.0-1.2); ABSOLUTE NEUTROPHILS 5.4 thou/uL (1.6-8.1); BASOPHILS 0.2 %; EOSINOPHILS 0.1 %; HEMATOCRIT 33.7 % (37.0-47.0); HEMOGLOBIN 10.5 gm/dL (12.0-15.0); LYMPHOCYTES 6.4 %; MCH 23.1 pg (26.0-34.0); MCHC 31.1 g/dL (28.0-37.0); MCV 74.3 fL (80.0-100.0); MONOCYTES 6.1 %; NUCLEATED RBCS 0 /100WBC; PLATELET COUNT* 250 thou/uL (150-400); POLYS 87.2 %; RBC 4.54 mil/uL (4.20-5.00); RDW-CV 16.2 % (10.5-14.5); WBC 6.1 thou/uL (4.0-11.0)
[2018-10-17 06:21] LABS: HEMATOCRIT 30.1 % (37.0-47.0); HEMOGLOBIN 9.2 gm/dL (12.0-15.0)
[2018-10-17 07:00] LABS: BE -10.4 mmol/L (-2 to +3); PCO2 25.6 mmHg (35.0-45.0); pH 7.354 (7.340-7.450)
[2018-10-17 07:01] LABS: PO2 129.4 mmHg (75.0-100.0)
[2018-10-17 07:05] LABS: CALCIUM 7.9 mg/dL (8.5-10.1); CREATININE 0.7 mg/dL (0.6-1.3); POTASSIUM 4.3 mmol/L (3.5-5.1)
[2018-10-17 09:16] LABS: HEMATOCRIT 33.1 % (37.0-47.0); HEMOGLOBIN 8.9 gm/dL (12.0-15.0); MPV 9.8 fl. (7.2-11.1); NUCLEATED RBCS 1 /100WBC; PLATELET COUNT* 185 thou/uL (150-400); RBC 3.56 mil/uL (4.20-5.00); RDW-CV 18.2 % (10.5-14.5); WBC 21.6 thou/uL (4.0-11.0)
[2018-10-17 09:17] LABS: MCV 92.8 fL (80.0-100.0)
[2018-10-17 09:32] LABS: INR 1.4; PROTIME 14.8 Seconds (9.20-11.50)
[2018-10-17 09:34] LABS: APTT 160.6 Seconds (25.0-31.3)
[2018-10-17 09:40] LABS: ALBUMIN 1.3 g/dL (3.4-5.0); CALCIUM 7.2 mg/dL (8.5-10.1); CREATININE 1.5 mg/dL (0.6-1.3); POTASSIUM 4.5 mmol/L (3.5-5.1); TOTAL BILIRUBIN 0.3 mg/dL (<0.1-1.0)
[2018-10-17 09:41] LABS: ABSOLUTE EOSINOPHILS 0.2 thou/uL (0.0-0.7); ABSOLUTE LYMPHOCYTES 10.4 thou/uL (0.8-5.3); ABSOLUTE MONOCYTES 2.6 thou/uL (0.0-1.2); ABSOLUTE NEUTROPHILS 8.4 thou/uL (1.6-8.1); MYELOCYTES 3 %; PLATELET ESTIMATE ADEQUATE
[2018-10-17 09:42] LABS: ANISOCYTOSIS 1+; LARGE PLATELETS RARE; POIKILOCYTOSIS 1+; POLYCHROMASIA 1+
[2018-10-17 11:16] LABS: BE -16.5 mmol/L (-2 to +3); PCO2 41.7 mmHg (35.0-45.0)
[2018-10-17 11:17] LABS: PO2 133.3 mmHg (75.0-100.0)
[2018-10-17 11:20] LABS: pH 7.094 (7.340-7.450)
[2018-10-17 11:30] LABS: HEMATOCRIT 33.4 % (37.0-47.0); MCH 25.1 pg (26.0-34.0); MCV 83.6 fL (80.0-100.0); MPV 8.5 fl. (7.2-11.1); RBC 3.99 mil/uL (4.20-5.00); RDW-CV 17.3 % (10.5-14.5)
[2018-10-17 11:37] LABS: CALCIUM 7.1 mg/dL (8.5-10.1); CREATININE 1.4 mg/dL (0.6-1.3)
[2018-10-17 11:39] LABS: INR 1.3; PROTIME 12.8 Seconds (9.20-11.50)
[2018-10-17 11:40] LABS: APTT 31.3 Seconds (25.0-31.3)
[2018-10-17 11:46] LABS: POTASSIUM 6.2 mmol/L (3.5-5.1)
--- NOTE | 2018-10-17 13:43 | EKG ---
[place] [address] ELECTROCARDIOGRAM REPORT Name: RUY CANDELARIA Room: [address] ADM IN .R.#: [id number] Admission: 10/17/18 Attend Phys: Adithya Goldsmith MD Discharge: Date of : 55 Report #: [id number] THIS REPORT FOR: //name// [facility] ED Test Date: 2018-10-16 Test Time: 21:03:44 Pat Name: RUY CANDELARIA Department: Room: [facility] Gender: F Educational Interpreter: Yazan BRASHER : 1955 Requested By: Gabi Carballo Order Number: [id number] MD: Carl Pearce Measurements Intervals [place] Rate: 94 P: 75 AK: 174 QRS: -41 QRSD: 84 T: 73 QT: 377 QTc: 472 Interpretive Statements Sinus rhythm Probable left atrial enlargement Left axis deviation Baseline wander in lead(s) V1 Compared to ECG 06/09/2018 20:52:06 Left-axis deviation now present Electronically Signed On 10-17-2018 13:43:25 CDT by Carl Pearce [email or web address] <ELECTRONICALLY SIGNED> By: Carl Pearce MD, FACC 10/17/18 1343 02 02 Carl Pearce MD, FAC /EPI
--- NOTE | 2018-10-17 13:45 | EKG ---
[place] [address] ELECTROCARDIOGRAM REPORT Name: RUY CANDELARIA Room: [address] ADM IN M.R.#: [id number] Admission: 10/17/18 Attend Phys: Adithya Goldsmith MD Discharge: Date of : 55 Report #: [id number] THIS REPORT FOR: //name// [facility] Test Date: 2018-10-17 Test Time: 06:39:34 Pat Name: RUY CANDELARIA Department: Room: [address] Gender: F Electrical Equipment Assembler: : 1955 Requested By: Adithya Goldsmith Order Number: [id number] Reading MD: Carl Pearce Measurements Intervals [place] Rate: 115 P: 63 HI: 129 QRS: -24 QRSD: 81 T: 67 QT: 345 QTc: 478 Interpretive Statements Sinus tachycardia Borderline left axis deviation Compared to ECG 06/09/2018 20:52:06 Sinus rhythm no longer present Atrial abnormality no longer present Electronically Signed On 10-17-2018 13:44:51 CDT by Carl Pearce [email or web address] <ELECTRONICALLY SIGNED> By: Carl Pearce MD, [facility] 10/17/18 1344 0639 0639 Carl Pearce MD, [facility] /EPI
--- NOTE | 2018-10-17 13:46 | EKG ---
[place] [address] ELECTROCARDIOGRAM REPORT Name: RUY CANDELARIA Room: [address] ADM IN M.R.#: [id number] Admission: 10/17/18 Attend Phys: Adithya Goldsmith MD Discharge: Date of : 55 Report #: [id number] THIS REPORT FOR: //name// [facility] Test Date: 2018-10-17 Test Time: 09:59:58 Pat Name: RUY CANDELARIA Department: Room: [facility] Gender: F Fire Extinguisher Inspector: MIKKI : 1955 Requested By: Corby Arellano Order Number: [id number] MD: Carl Pearce Measurements Intervals [place] Rate: 93 P: 87 SC: 148 QRS: -45 QRSD: 83 T: 76 QT: 368 QTc: 458 Interpretive Statements Sinus rhythm Left anterior fascicular block Borderline low voltage, extremity leads Abnormal R-wave progression, early transition Compared to ECG 06/09/2018 20:52:06 Left anterior fascicular block now present Electronically Signed On 10-17-2018 13:46:14 CDT by Carl Pearce [email or web address] <ELECTRONICALLY SIGNED> By: Carl Pearce MD, FACC 10/17/18 1346 0959 0959 Carl Pearce MD, FAC /EPI
[2018-10-17 14:46] LABS: BE -11.3 mmol/L (-2 to +3)
[2018-10-17 14:50] LABS: pH 7.222 (7.340-7.450)
[2018-10-17 14:55] LABS: ABSOLUTE LYMPHOCYTES 0.8 thou/uL (0.8-5.3); ABSOLUTE MONOCYTES 0.7 thou/uL (0.0-1.2); ABSOLUTE NEUTROPHILS 14.4 thou/uL (1.6-8.1); BASOPHILS 0.2 %; HEMATOCRIT 31.4 % (37.0-47.0); HEMOGLOBIN 10.1 gm/dL (12.0-15.0); LYMPHOCYTES 4.7 %; MCH 25.3 pg (26.0-34.0); MONOCYTES 4.6 %; MPV 8.4 fl. (7.2-11.1); NUCLEATED RBCS 1 /100WBC; PLATELET COUNT* 196 thou/uL (150-400); POLYS 90.5 %; RBC 3.98 mil/uL (4.20-5.00); RDW-CV 16.7 % (10.5-14.5); WBC 15.9 thou/uL (4.0-11.0)
[2018-10-17 15:06] LABS: APTT 31.5 Seconds (25.0-31.3); INR 1.3; PROTIME 13.1 Seconds (9.20-11.50)
[2018-10-17 15:17] LABS: CALCIUM 6.4 mg/dL (8.5-10.1); CREATININE 1.2 mg/dL (0.6-1.3); MAGNESIUM 1.7 mg/dL (1.8-2.4); PHOSPHORUS* 3.8 mg/dL (2.5-4.9); TOTAL PROTEIN 4.6 g/dL (6.4-8.2)
[2018-10-17 15:18] LABS: POTASSIUM 3.5 mmol/L (3.5-5.1)
--- NOTE | 2018-10-17 15:57 | 2DMMODE ---
[place] [address] 2 D/M-MODE ECHOCARDIOGRAM Name: TEAGANRUY NICANOR Room: [address] ADM [facility]#: [id number] Admission: 10/17/18 Attend Phys: Adithya Goldsmith MD Discharge: Date of : 55 Date of Service: 10/17/18 1557 Report #: [id number] THIS REPORT FOR: //name// APPROVED REPORT Study performed: 10/17/2018 14:50:28 EXAM: Comprehensive 2D, Doppler, and color-flow Echocardiogram Patient Location: In-Patient Room #: 003 Status: routine BSA: 1.92 HR: 98 bpm BP: 135/77 mmHg Rhythm: NSR Other Information Study Quality: Good Indications CAD 2D Dimensions IVSd: 10.01 (7-11mm) LVOT Diam: 19.51 (18-24mm) LVDd: 36.00 mm PWd: 9.05 (7-11mm) Ascending Ao: 35.50 (22-36mm) LVDs: 24.96 (25-40mm) Aortic Root: 35.12 mm Volumes Left Atrial Volume (Systole) LA ESV Index: 12.90 mL/m2 Aortic Valve AoV Peak Loc.: 1.02 m/s AO Peak Gr.: 4.17 mmHg LVOT Max P.52 mmHg AO Mean Gr.: 2.35 mmHg LVOT Mean P.66 mmHg LVOT Max V: 0.94 m/s AO V2 VTI: 14.03 cm LVOT Mean V: 0.60 m/s MATT (VTI): 2.49 cm2 LVOT V1 VTI: 11.69 cm Mitral Valve E/A Ratio: 0.46 MV Decel. Time: 197.16 ms MV E Max Loc.: 0.33 m/[place] [address] 2 D/M-MODE ECHOCARDIOGRAM Name: RUY CANDELARIA Room: [address] IN ..#: [id number] Admission: 10/17/18 Attend Phys: Adithya Goldsmith MD Discharge: Date of : 55 Date of Service: 10/17/18 1557 Report #: [id number] MV PHT: 57.18 ms MVA (PHT): 3.85 cm2 TDI E/Lateral E': 3.30 E/Medial E': 3.30 Medial E' Loc.: 0.10 m/s Lateral E' Loc.: 0.10 m/s Pulmonary Valve PV Peak Loc.: 0.84 m/s PV Peak Gr.: 2.80 mmHg Tricuspid Valve RAP Estimate: 5.00 mmHg TR Peak Gr.: 26.86 mmHg RVSP: 21.00 mmHg PA Pressure: 21.00 mmHg Left Ventricle The left ventricle is normal size. There is normal LV segmental wall motion. There is normal left ventricular wall thickness. Left ventricular systolic function is normal. LVEF is 60-65%. Grade I - abnormal relaxation pattern. Right Ventricle The right ventricle is normal size. The right ventricular systolic function is normal. Atria The left atrium size is normal. The right atrium size is normal. Aortic Valve The aortic valve is normal in structure. No aortic regurgitation is present. There is no aortic valvular stenosis. Mitral Valve The mitral valve is normal in structure. There is no mitral valve regurgitation noted. No evidence of mitral valve stenosis. Tricuspid Valve The tricuspid valve is normal in structure. Trace tricuspid regurgitation. Pulmonic Valve The pulmonary valve is normal in structure. [place] [address] 2 D/M-MODE ECHOCARDIOGRAM Name: CANDELARIARUY NICANOR Room: [address]#: [id number] Admission: 10/17/18 Attend Phys: Adithya Goldsmith MD Discharge: Date of : 55 Date of Service: 10/17/18 1557 Report #: [id number] Great Vessels The aortic root is normal in size. IVC is normal in size and collapses >50% with inspiration. Pericardium There is no pericardial effusion. <Conclusion> The left ventricle is normal size. There is normal left ventricular wall thickness. Left ventricular systolic function is normal. LVEF is 60-65%. Grade I - abnormal relaxation pattern. <ELECTRONICALLY SIGNED> By: Carl Pearce MD, FACC 10/17/18 1557 1557 1557 Carl Pearce MD, FACC /INF
[2018-10-17 21:07] LABS: CALCIUM 6.3 mg/dL (8.5-10.1); POTASSIUM 3.6 mmol/L (3.5-5.1)
[2018-10-18] VITALS (33 sets, daily range): BP systolic 90–184; BP diastolic 39–73
[2018-10-18 04:37] LABS: ABSOLUTE LYMPHOCYTES 0.7 thou/uL (0.8-5.3); ABSOLUTE MONOCYTES 0.9 thou/uL (0.0-1.2); ABSOLUTE NEUTROPHILS 14.3 thou/uL (1.6-8.1); BASOPHILS 0.2 %; HEMOGLOBIN 8.8 gm/dL (12.0-15.0); LYMPHOCYTES 4.6 %; MCH 25.3 pg (26.0-34.0); MCHC 32.5 g/dL (28.0-37.0); MCV 77.8 fL (80.0-100.0); MONOCYTES 5.8 %; MPV 8.4 fl. (7.2-11.1); NUCLEATED RBCS 0 /100WBC; PLATELET COUNT* 209 thou/uL (150-400); POLYS 89.4 %; RBC 3.48 mil/uL (4.20-5.00); RDW-CV 16.7 % (10.5-14.5)
[2018-10-18 05:56] LABS: BE -8.4 mmol/L (-2 to +3); PCO2 28.4 mmHg (35.0-45.0); PO2 87.1 mmHg (75.0-100.0); pH 7.361 (7.340-7.450)
[2018-10-18 06:22] LABS: ALBUMIN 2.1 g/dL (3.4-5.0); CALCIUM 7.1 mg/dL (8.5-10.1); CREATININE 1.1 mg/dL (0.6-1.3); POTASSIUM 4.1 mmol/L (3.5-5.1); TOTAL BILIRUBIN 0.5 mg/dL (<0.1-1.0); TOTAL PROTEIN 4.5 g/dL (6.4-8.2)
--- NOTE | 2018-10-18 06:44 | CON ---
[address] [address] CONSULTATION Name: TEAGANRUY VICK Room: [address] IN .R.#: [id number] Admission: 10/17/18 Attend Phys: Adithya Goldsmith MD Discharge: Date of : 55 Report #: [id number] THIS REPORT FOR: //name// CC: Corby Arellano DO [facility] Adithya Goldsmith MD DATE OF SERVICE: 10/17/2018 PULMONARY CONSULTATION She is located in ICU bed 3. ATTENDING PHYSICIAN: Adithya Goldsmith MD INDICATION FOR CONSULTATION: Acute respiratory failure, cardiac arrest, PEA, perforated sigmoid colon. HISTORY OF PRESENT ILLNESS: The patient is a 63-year-old female, prior smoker, presented in the Emergency Room Department last night with a sharp right lower quadrant abdominal pain. No bowel movement for 3 days. The patient had perforated bowel, was taken to surgery and that was done early this morning. She had a resection of a perforated sigmoid colon with a Efrain colostomy placement. She had minimal peritoneal signs of air spillage at that time. She was lavaged out and then extubated and placed upon the floor in the PCU. She started having more confusion and hypotension and tachycardia, transferred to the ICU. This morning, she was in the ICU and then she had a cardiac arrest, which was PEA. She dropped her blood pressure and her pulse. She had about 6-8 rounds of IV epinephrine, had some compressions, some mild rib fractures, was intubated, started on Levophed after the cardiac arrest. She is now moving all 4s and trying to self-extubate. She appears to be appropriate. No cough or secretion. She remains acidotic and also with diabetic hyperglycemia with blood sugars in the 400s and 500s. She has received 2 units of packed cells this morning. Urine output has been fair. Blood pressure has been somewhat soft, on Levophed. PAST MEDICAL HISTORY: She has history of COPD and coronary artery disease. She has not been oxygen or steroid dependent that I can ascertain, also has history of restless legs syndrome and hypertension. ALLERGIES: She has no known medical allergies. OUTPATIENT MEDICATIONS: Included aspirin 81 mg daily. She was on Plavix at some point in time 75 mg daily, I think that has been stopped. She was on a prednisone taper last June that has been stopped, was [place] [address] CONSULTATION Name: CANDELARIARUY NICANOR Room: [address]#: [id number] Admission: 10/17/18 Attend Phys: Adithya Goldsmith MD Discharge: Date of : 55 Report #: [id number] at home followed by Advair 500/50 one puff b.i.d. and also hydrochlorothiazide 25 mg daily and Spiriva inhaler 1 capsule daily. Was also on amlodipine 10 mg daily and gabapentin 600 mg t.i.d. PAST SURGICAL HISTORY: Includes right shoulder surgery with some metal implants x 2, exploratory lap with bowel resection for ischemic lesion and small bowel. She has had ischemic colitis in the past, duodenal ulcer. She had a bladder sling placed and also had a stent placement in 2018 and right foot surgeries. FAMILY HISTORY: She has her mother with carcinoma. SOCIAL HISTORY: The patient lives on her own. She is a 1 pack a day smoker and has done so for 35-40 years, given a 40 pack-year history. Social alcohol use, denies daily use. REVIEW OF SYSTEMS: A 14-point review of systems reviewed and negative except for pertinent positives noted in HPI. PHYSICAL EXAMINATION: GENERAL: This is a 63-year-old female in moderate distress. She is trying to self-extubate at this time. We have just turned up her midazolam drip. VITAL SIGNS: Currently, her blood pressure is 95/60 on 15 mcg of Levophed. Her heart rate is in the 90s, respirations she was 25 over backup rate of 14 and her temperature is 36.4 degrees. HEENT: Pupils are midpoint. She is orally intubated with ET tube at 24 cm. Orogastric tube is in place. CHEST: Shows a few rhonchi, but no wheeze. CARDIOVASCULAR: Shows regular rate and rhythm without murmur, gallop or rub. Heart rate is in the 90s. ABDOMEN: Quiet with a large incision with a Efrain pouch. She has a right femoral venous line for triple lumen access and also has an intraosseous in her right tibia. She has 1-2+ peripheral pulses. NEUROLOGIC: She moves all 4 extremities. She is not responsive to commands at this time, but is trying to appropriately self-extubate. LABORATORY DATA: This morning from 10/17/2018 shows a hemoglobin of 10 after 2 units of blood; white count 14,000; platelets are 223,000. She had a right shifted differential and had 48% lymphocytes and 26% bands with left shifted differential also, absolute neutrophils 8400. Blood gas this morning from the arterial line on FiO2 70%, tidal volume 550, assist control 14, PEEP of 5, shows pO2 of 133, pH 7.09, pCO2 is 41, bicarb is 12, sat was 96%. Coags: INR was elevated at 1.4, PTT was 160. Chest x-ray shows ET tube in good position, it is a little low at 2 cm. We will watch it. There are no infiltrates, nonspecific small bowel gas pattern, no free air noted at this time. [place] [address] CONSULTATION Name: RUY CANDELARIA Room: [address] IN M.R.#: [id number] Admission: 10/17/18 Attend Phys: Adithya Goldsmith MD Discharge: Date of : 55 Report #: [id number] IMPRESSION: 1. Acute respiratory failure. 2. Pulseless electrical activity, probably related to either abdominal sepsis and peritonitis versus hypovolemic shock. 3. Mild encephalopathy. Neurologic status is improving at this time. 4. Hyperglycemia with a positive anion gap acidosis consistent with diabetic ketoacidosis. 5. Chronic obstructive pulmonary disease. 6. Coronary artery disease. PLAN: We will increase the ventilator, turn her down to 55% and increase her tidal volume to 600, assist control rate of 20 and PEEP of 5. We will check a blood gas this afternoon to see how her acidosis is improving. She may need some more normal saline and fluid boluses. She has had several 1 liter boluses, may need continuous infusion. We will try Versed and fentanyl for agitation. If we need to, we will switch to propofol. I will need to be on the ventilator for the next couple of days. She is critically ill at this time. Hopefully, she will improve over the next 12-24 hours. This has been a 37-minute critical care consult. <ELECTRONICALLY SIGNED> By: Kevon Nathan MD 10/18/18 0644 [id number] [id number] Nathan MD /nt
[2018-10-19] VITALS (23 sets, daily range): BP systolic 87–204; BP diastolic 42–93
[2018-10-19 05:31] LABS: ABSOLUTE LYMPHOCYTES 0.5 thou/uL (0.8-5.3); ABSOLUTE MONOCYTES 0.7 thou/uL (0.0-1.2); ABSOLUTE NEUTROPHILS 7.9 thou/uL (1.6-8.1); BASOPHILS 0.4 %; LYMPHOCYTES 5.2 %; MCH 25.1 pg (26.0-34.0); MCHC 32.7 g/dL (28.0-37.0); MCV 76.8 fL (80.0-100.0); MONOCYTES 7.4 %; MPV 8.6 fl. (7.2-11.1); NUCLEATED RBCS 0 /100WBC; PLATELET COUNT* 192 thou/uL (150-400); RBC 2.36 mil/uL (4.20-5.00); RDW-CV 16.9 % (10.5-14.5)
[2018-10-19 05:49] LABS: HEMOGLOBIN 5.9 gm/dL (12.0-15.0)
[2018-10-19 05:50] LABS: HEMATOCRIT 18.1 % (37.0-47.0)
[2018-10-19 05:53] LABS: ALBUMIN 1.5 g/dL (3.4-5.0); ALKALINE PHOSPHATASE 53 U/L (46-116); ANION GAP 10 mmol/L (7-16); BUN 37 mg/dL (7-18); CALCIUM 6.9 mg/dL (8.5-10.1); CHLORIDE 112 mmol/L (98-107); CHOLESTEROL 74 mg/dL (<200); CO2 23 mmol/L (21-32); CREATININE 1.1 mg/dL (0.6-1.3); GLUCOSE 147 mg/dL (70-99); HDL CHOLESTEROL 23 mg/dL (>40); LDL CHOLESTEROL 29 mg/dL (<100); SGOT 62 U/L (15-37); SGPT 50 U/L (30-65); SODIUM 145 mmol/L (136-145); TC:HDL 3.2 Ratio (Not establshd); TOTAL BILIRUBIN 0.3 mg/dL (<0.1-1.0); TOTAL PROTEIN 4.3 g/dL (6.4-8.2); TRIGLYCERIDE 110 mg/dL (<150); VLDL 22 mg/dL (<40)
[2018-10-19 05:54] LABS: POTASSIUM 2.9 mmol/L (3.5-5.1); SERUM ASSESSMENT Clear
[2018-10-19 06:21] LABS: HEMATOCRIT 19.1 % (37.0-47.0); HEMOGLOBIN 6.3 gm/dL (12.0-15.0)
[2018-10-19 06:24] LABS: APTT 30.7 Seconds (25.0-31.3); PROTIME 10.5 Seconds (9.20-11.50)
[2018-10-19 07:19] LABS: BE -5.1 mmol/L (-2 to +3); PCO2 36.9 mmHg (35.0-45.0); PO2 90.7 mmHg (75.0-100.0); pH 7.351 (7.340-7.450)
--- NOTE | 2018-10-19 07:28 | CON ---
[address] [address] CONSULTATION Name: RUY CANDELARIA Room: [address] IN M.R.#: [id number] Admission: 10/17/18 Attend Phys: Adithya Goldsmith MD Discharge: Date of : 55 Report #: [id number] THIS REPORT FOR: //name// CC: Corby Goldsmith DATE OF SERVICE: 10/17/2018 INFECTIOUS DISEASE CONSULTATION ATTENDING PHYSICIAN: Dr. Goldsmith. REASON FOR EVALUATION: Septic shock as a result of perforated sigmoid diverticula with fecal peritonitis. HISTORY OF PRESENT ILLNESS: Chart reviewed, the patient examined. This is a 63-year-old woman with a previous history of ischemic bowel, who has had resection of partial small bowel. Prior to this, also had a prolapsed bladder with recent surgery, who presented with abdominal pain last a.m. of admission. She noted that she has not had a bowel movement and had several episodes of emesis. It is not she was likely constipated. She did have right lower quadrant pain as well. Due to ill appearance, she was evaluated and was found to have pneumoperitoneum. Due to concerns about perforated viscus, underwent operative procedure. Shortly thereafter, was found to have sigmoid diverticulitis with perforation. Also has incisional hernia repair as well. Postoperative course has been complicated by persistent requirement for ventilatory support; she is intubated. Had required some pressor support as well, although it has currently been discontinued. She has been on empiric antimicrobial therapy with metronidazole, Zosyn and vancomycin. Of note, blood cultures collected the day of admission as well as the following day x 4 sets are sterile thus far. She is sedated. ALLERGIES: None known. MEDICATIONS: Include vancomycin, methylprednisolone, fentanyl as needed, pantoprazole, midazolam, Zosyn and metronidazole. PAST MEDICAL HISTORY: As described above, hypertension, some COPD, has multiple abdominal surgeries, history of duodenal ulcer and history of asthma. SOCIAL HISTORY: Smokes cigarettes, occasional ethanol. No illicit drug use. FAMILY HISTORY: Noncontributory. REVIEW OF SYSTEMS: [place] [address] CONSULTATION Name: RUY CANDELARIA Room: [address] [place] [facility]#: [id number] Admission: 10/17/18 Attend Phys: Adithya Goldsmith MD Discharge: Date of : 55 Report #: [id number] PHYSICAL EXAMINATION: GENERAL: She appears somewhat chronically ill, undernourished. She is pale, older than her noted age. VITAL SIGNS: Temperature 97.6, pulse 98, respirations 24 and blood pressure 126/57. SKIN: Warm, dry. No rashes. HEENT: Multiple tubes in place, has endotracheal and has an intestinal tube. Normocephalic. NECK: Supple. LUNGS: A few scattered coarse sounds. HEART: Regular. Borderline tachycardic. I do not appreciate a murmur. ABDOMEN: There is an ostomy in the right lower quadrant. She has got a wound VAC in place. She has got 2 drains that are bilateral. She has got inguinal central venous catheter. EXTREMITIES: She has got a right-sided distal upper extremity art line. Distal lower extremity has minimal edema at this point. GENITOURINARY: Deferred. RECTAL: Deferred. LABORATORY DATA: Blood cultures sterile thus far. Most recent chest x-ray from earlier showed clear lungs, no pneumothorax. Blood sugars have been elevated. Electrolytes: Sodium 146, potassium 4.1, chloride 112, bicarbonate is 16, anion gap of 18, BUN and creatinine 37 and 1.1 and glucose 150. Albumin of 2.1. Total protein of 4.5. AST 191, ALT of 95. Estimated GFR of 50. Most recent ABG, pH of 7.361, pCO2 of 24 and pO2 of 87.1 on assist control of 45%. Prealbumin of 11.1. CBC, WBC now 16, peaked at 21.6, H and H 8.8 and 27.0. 1. ASSESSMENT AND PLAN: Septic shock secondary to perforated diverticulitis involving the sigmoid colon. She is postoperative surgical resection with a colostomy. At this point, the cultures are unrevealing. We will continue broad-spectrum therapy, presume polymicrobial etiology including primarily gram negatives as well as anaerobes, should be well covered. She continues to exhibit evidence of multiorgan dysfunction, although that is somewhat improved to this point. We will have to monitor expectantly. Wean off support as allowed. <ELECTRONICALLY SIGNED> By: Arias Mcclellan MD 10/19/18 0728 1339 [id number] Mcclellan MD /nt
[2018-10-20] VITALS (19 sets, daily range): BP systolic 90–192; BP diastolic 43–86
[2018-10-20 03:06] LABS: GLYCOHEMOGLOBIN (HGB A1C) 6.8 % (4.8-5.6)
[2018-10-20 06:41] LABS: BE -3.8 mmol/L (-2 to +3); PO2 79.2 mmHg (75.0-100.0)
[2018-10-20 06:43] LABS: pH 7.243 (7.340-7.450)
[2018-10-20 13:14] LABS: BE -2.7 mmol/L (-2 to +3); PCO2 44.1 mmHg (35.0-45.0); PO2 87.1 mmHg (75.0-100.0); pH 7.336 (7.340-7.450)
[2018-10-20 15:13] LABS: BE -1.7 mmol/L (-2 to +3); PCO2 36.4 mmHg (35.0-45.0); PO2 76.6 mmHg (75.0-100.0); pH 7.412 (7.340-7.450)
[2018-10-21] VITALS (20 sets, daily range): BP systolic 123–182; BP diastolic 47–124
[2018-10-21 08:26] LABS: PCO2 46.5 mmHg (35.0-45.0); pH 7.414 (7.340-7.450)
[2018-10-21 08:29] LABS: PO2 34.9 mmHg (75.0-100.0)
[2018-10-21 08:56] LABS: BE 4.6 mmol/L (-2 to +3); PCO2 36.8 mmHg (35.0-45.0); PO2 64.3 mmHg (75.0-100.0)
[2018-10-21 16:50] LABS: URINE BILIRUBIN NEGATIVE (Negative); URINE BLOOD NEGATIVE (Negative); URINE CLARITY CLEAR; URINE COLOR YELLOW; URINE GLUCOSE-RANDOM TRACE (Negative); URINE KETONES NEGATIVE (Negative); URINE LEUKOCYTES-REFLEX NEGATIVE (Negative); URINE NITRITE-REFLEX NEGATIVE (Negative); URINE PROTEIN NEGATIVE (Negative); URINE SPECIFIC GRAVITY 1.015 (1.005-1.030); URINE UROBILINOGEN 0.2 E.U./dl (0.2-1.0)
--- NOTE | 2018-10-21 17:43 | EKG ---
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 : 1955 Requested By: Walker Fiore Order Number: [id number] Davon MD: Carl Pearce Measurements Intervals [place] Rate: 70 P: 73 DE: 154 QRS: 15 QRSD: 92 T: 36 QT: 531 QTc: 574 Interpretive Statements Sinus rhythm Low voltage, extremity leads Repol abnrm suggests ischemia, anterolateral Prolonged QT interval Baseline wander in lead(s) V1,V2,V6 Compared to ECG 10/17/2018 09:59:58 Early repolarization now present Possible ischemia now present Prolonged QT interval now present Left anterior fascicular block no longer present Electronically Signed On 10-21-2018 17:43:49 CDT by Carl Pearce [email or web address] <ELECTRONICALLY SIGNED> By: Carl Pearce MD, FACC 10/21/18 1743 0602 [id number] Carl Pearce MD, [facility] /EPI
[2018-10-22] VITALS (18 sets, daily range): BP systolic 138–177; BP diastolic 48–113
[2018-10-22 04:43] LABS: HEMOGLOBIN 8.4 gm/dL (12.0-15.0); MCH 24.8 pg (26.0-34.0); MCHC 32.1 g/dL (28.0-37.0); MCV 77.4 fL (80.0-100.0); MPV 8.9 fl. (7.2-11.1); RBC 3.37 mil/uL (4.20-5.00); RDW-CV 18.7 % (10.5-14.5); WBC 15.8 thou/uL (4.0-11.0)
[2018-10-22 05:38] LABS: CALCIUM 7.7 mg/dL (8.5-10.1); CREATININE 0.7 mg/dL (0.6-1.3); MAGNESIUM 1.9 mg/dL (1.8-2.4); POTASSIUM 4.1 mmol/L (3.5-5.1); TOTAL BILIRUBIN 0.7 mg/dL (<0.1-1.0)
[2018-10-23] VITALS (20 sets, daily range): BP systolic 135–170; BP diastolic 57–79
[2018-10-23 02:31] LABS: HEMATOCRIT 27.1 % (37.0-47.0); HEMOGLOBIN 8.8 gm/dL (12.0-15.0); MCH 25.2 pg (26.0-34.0); MCHC 32.4 g/dL (28.0-37.0); MCV 77.8 fL (80.0-100.0); MPV 8.6 fl. (7.2-11.1); RBC 3.49 mil/uL (4.20-5.00); RDW-CV 18.9 % (10.5-14.5); WBC 12.1 thou/uL (4.0-11.0)
[2018-10-23 02:43] LABS: ALBUMIN 2.2 g/dL (3.4-5.0); CALCIUM 7.7 mg/dL (8.5-10.1); CREATININE 0.8 mg/dL (0.6-1.3); POTASSIUM 3.5 mmol/L (3.5-5.1); TOTAL BILIRUBIN 0.6 mg/dL (<0.1-1.0); TOTAL PROTEIN 5.2 g/dL (6.4-8.2)
--- NOTE | 2018-10-23 16:54 | EKG ---
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: : 1955 Requested By: Rosa Pinto Order Number: [id number] Reading MD: Kvng Strong Measurements Intervals [place] Rate: 85 P: 76 DC: 145 QRS: 4 QRSD: 79 T: 63 QT: 350 QTc: 417 Interpretive Statements Sinus rhythm Probable left atrial enlargement Borderline T abnormalities, anterior leads Compared to ECG 10/21/2018 06:02:55 T-wave abnormality now present Early repolarization no longer present Possible ischemia no longer present Prolonged QT interval no longer present Electronically Signed On 10-23-2018 16:54:25 CDT by Kvng Srtong [email or web address] <ELECTRONICALLY SIGNED> By: Kvng Strong MD, [facility] 10/23/18 1654 1402 1402 Kvng Strong MD, [facility] /EPI
[2018-10-24] VITALS: BP 142/62
[2018-10-24 02:00] VITALS: BP 134/60
[2018-10-24 03:19] LABS: HEMATOCRIT 29.3 % (37.0-47.0); HEMOGLOBIN 9.2 gm/dL (12.0-15.0); MCH 24.7 pg (26.0-34.0); MCHC 31.5 g/dL (28.0-37.0); MCV 78.2 fL (80.0-100.0); MPV 8.8 fl. (7.2-11.1); RBC 3.74 mil/uL (4.20-5.00); RDW-CV 19.4 % (10.5-14.5); WBC 15.4 thou/uL (4.0-11.0)
[2018-10-24 04:18] LABS: ALBUMIN 2.4 g/dL (3.4-5.0); CALCIUM 8.3 mg/dL (8.5-10.1); CREATININE 0.8 mg/dL (0.6-1.3); MAGNESIUM 2.1 mg/dL (1.8-2.4); PHOSPHORUS* 3.7 mg/dL (2.5-4.9); POTASSIUM 4.1 mmol/L (3.5-5.1)
[2018-10-24 20:00] VITALS: BP 144/55
[2018-10-25] VITALS: BP 135/55
[2018-10-25 04:00] VITALS: BP 112/47
[2018-10-25 05:16] LABS: HEMATOCRIT 26.5 % (37.0-47.0); HEMOGLOBIN 8.2 gm/dL (12.0-15.0); MCH 24.6 pg (26.0-34.0); MCV 79.4 fL (80.0-100.0); RBC 3.33 mil/uL (4.20-5.00); RDW-CV 19.5 % (10.5-14.5); WBC 18.5 thou/uL (4.0-11.0)
[2018-10-25 05:43] LABS: CALCIUM 7.9 mg/dL (8.5-10.1); CREATININE 0.8 mg/dL (0.6-1.3); MAGNESIUM 1.8 mg/dL (1.8-2.4); POTASSIUM 4.4 mmol/L (3.5-5.1)
[2018-10-25 08:00] VITALS: BP 120/57
[2018-10-25 12:00] VITALS: BP 129/51
[2018-10-25 16:00] VITALS: BP 124/47
[2018-10-25 20:06] VITALS: BP 136/61
[2018-10-26] VITALS: BP 126/58
[2018-10-26 04:00] VITALS: BP 153/59
[2018-10-26 08:14] LABS: HEMATOCRIT 27.8 % (37.0-47.0); HEMOGLOBIN 8.6 gm/dL (12.0-15.0); MCH 24.8 pg (26.0-34.0); MCHC 30.8 g/dL (28.0-37.0); MCV 80.3 fL (80.0-100.0); MPV 8.8 fl. (7.2-11.1); NUCLEATED RBCS 0 /100WBC; PLATELET COUNT* 411 thou/uL (150-400); RBC 3.46 mil/uL (4.20-5.00); RDW-CV 20.4 % (10.5-14.5)
[2018-10-26 08:24] LABS: CALCIUM 8.1 mg/dL (8.5-10.1); CREATININE 0.8 mg/dL (0.6-1.3); POTASSIUM 4.5 mmol/L (3.5-5.1)
[2018-10-26 08:42] LABS: ABSOLUTE LYMPHOCYTES 2.2 thou/uL (0.8-5.3); ABSOLUTE MONOCYTES 0.3 thou/uL (0.0-1.2); ABSOLUTE NEUTROPHILS 25.5 thou/uL (1.6-8.1); MYELOCYTES 2 %; PLATELET ESTIMATE INCREASED
[2018-10-26 08:43] LABS: ANISOCYTOSIS 1+; HYPOCHROMASIA 1+; POIKILOCYTOSIS 1+; POLYCHROMASIA Occasional
[2018-10-26 10:00] VITALS: BP 153/59
[2018-10-26 12:08] VITALS: BP 145/63
[2018-10-26 13:11] LABS: % SATURATION 7 % (20-39); IRON 23 ug/dL (50-175)
[2018-10-26 15:35] VITALS: BP 141/55
[2018-10-26 20:17] VITALS: BP 141/62
[2018-10-27] VITALS: BP 103/53
[2018-10-27 04:00] VITALS: BP 110/55
[2018-10-27 05:02] LABS: ABSOLUTE LYMPHOCYTES 1.6 thou/uL (0.8-5.3); ABSOLUTE MONOCYTES 1.7 thou/uL (0.0-1.2); ABSOLUTE NEUTROPHILS 27.6 thou/uL (1.6-8.1); BASOPHILS 0.2 %; HEMATOCRIT 28.2 % (37.0-47.0); HEMOGLOBIN 9.1 gm/dL (12.0-15.0); LYMPHOCYTES 5.3 %; MCHC 32.5 g/dL (28.0-37.0); MCV 80.2 fL (80.0-100.0); MONOCYTES 5.6 %; MPV 8.9 fl. (7.2-11.1); NUCLEATED RBCS 0 /100WBC; PLATELET COUNT* 436 thou/uL (150-400); POLYS 88.9 %; RBC 3.51 mil/uL (4.20-5.00); RDW-CV 20.4 % (10.5-14.5)
[2018-10-27 05:51] LABS: CALCIUM 8.3 mg/dL (8.5-10.1); CREATININE 0.8 mg/dL (0.6-1.3); MAGNESIUM 1.5 mg/dL (1.8-2.4); POTASSIUM 3.7 mmol/L (3.5-5.1)
[2018-10-27 08:00] VITALS: BP 104/58
[2018-10-27 12:08] VITALS: BP 124/58
[2018-10-27 15:44] VITALS: BP 126/61
[2018-10-27 20:45] VITALS: BP 137/61
[2018-10-28 05:17] LABS: ABSOLUTE BASOPHILS 0.1 thou/uL (0.0-0.2); ABSOLUTE LYMPHOCYTES 2.2 thou/uL (0.8-5.3); ABSOLUTE MONOCYTES 1.7 thou/uL (0.0-1.2); ABSOLUTE NEUTROPHILS 26.3 thou/uL (1.6-8.1); BASOPHILS 0.3 %; HEMATOCRIT 29.8 % (37.0-47.0); HEMOGLOBIN 9.4 gm/dL (12.0-15.0); LYMPHOCYTES 7.2 %; MCH 25.4 pg (26.0-34.0); MCHC 31.5 g/dL (28.0-37.0); MCV 80.5 fL (80.0-100.0); MONOCYTES 5.6 %; MPV 8.8 fl. (7.2-11.1); NUCLEATED RBCS 0 /100WBC; PLATELET COUNT* 459 thou/uL (150-400); POLYS 86.9 %; RDW-CV 20.7 % (10.5-14.5); WBC 30.3 thou/uL (4.0-11.0)
[2018-10-28 05:27] LABS: CALCIUM 8.7 mg/dL (8.5-10.1); CREATININE 0.8 mg/dL (0.6-1.3); MAGNESIUM 1.8 mg/dL (1.8-2.4); POTASSIUM 3.4 mmol/L (3.5-5.1)
[2018-10-28] MEDS ORDERED: AMOX TR-K CLV1 EAC3 PO (11:44)
[2018-10-28] MEDS ORDERED: CLOPIDOGREL75 MG PO (11:44)
[2018-10-28] MEDS ORDERED: GLUCOPHAGE500 MG PO (11:44)
[2018-10-28] MEDS ORDERED: PREDNISONE 10 M10 M1 PO (11:44)
[2018-10-28] MEDS ORDERED: NORCO 5-325 TA1 EACH PO (11:44)
[2018-10-28] MEDS ORDERED: LISINOPRIL5 MG PO (11:44)
[2018-10-28] MEDS ORDERED: METRONIDAZOLE500 M4 PO (11:45)
[2018-10-28 12:36] VITALS: BP 153/59
[2018-10-28 13:08] VITALS: BP 166/66
[2018-10-28 13:49] VITALS: BP 153/59
--- NOTE | 2018-10-28 14:05 | OP ---
[address] [address] OPERATIVE REPORT Name: RUY CANDELARIA Room: [address] IN M.R.#: [id number] Admission: 10/17/18 Attend Phys: Adithya Goldsmith MD Discharge: 10/28/18 Date of : 55 Report #: [id number] THIS REPORT FOR: //name// CC: Corby Hargrove DATE OF SERVICE: 10/17/2018 PREOPERATIVE DIAGNOSES: Perforated viscus with free intraperitoneal air and incisional hernia in the lower abdomen. POSTOPERATIVE DIAGNOSES: Perforated sigmoid diverticulitis and lower abdominal incisional hernia. PROCEDURE: Diagnostic laparoscopy converted to exploratory laparotomy with sigmoid colon resection and Efrain's colostomy with primary repair of incisional hernia as well. SURGEON: Corby Arellano DO. PAINT TRIMMER PIPE BOWLS: Keny Alfaro DO, PGY-3 resident. SECOND DISTRIBUTION SPEC: OREN Hernandez. REFERRING PHYSICIAN: Vinny Swain DO. ANESTHESIA: General endotracheal. ESTIMATED BLOOD LOSS: 300 mL. COMPLICATIONS: Injury to right inferior epigastric artery during drain placement. DESCRIPTION OF PROCEDURE: After obtaining proper consents and discussing risks and complications with the patient including bleeding, infection, injury to other organs, possibility of colostomy or ileostomy, possible bowel resection, possible need for further surgery, IN, stroke, DVT, PE, and and also discussing the risk that the patient was on Plavix and aspirin; however, had an emergent procedure that needed to be performed and she could end up with a postoperative bleed. She was taken to the operating room, laid in the supine position, administered general endotracheal anesthetic. She was then prepped and draped in the usual fashion. A Garza catheter had been inserted. Nasogastric tube had also been inserted. A timeout was performed. We confirmed the appropriate patient and procedure. Preoperative [place] [address] OPERATIVE REPORT Name: RUY CANDELARIA Room: [address] IN [facility].#: [id number] Admission: 10/17/18 Attend Phys: Adithya Goldsmith MD Discharge: 10/28/18 Date of : 55 Report #: [id number] SCDs were in place. All necessary equipment was within the operating room. We then made a small supraumbilical skin incision with a #11 scalpel blade. This was carried down through the skin and the subcutaneous tissue using electrocautery for hemostasis. Once the fascia was encountered, it was incised along the midline, grasped and elevated with Ann clamps. The peritoneum was then bluntly opened using a hemostat. Two 0 Vicryl sutures were placed in a [id number] fashion to secure the Lisette trocar, which was then inserted and insufflation was begun. Once insufflation was complete, full visual inspection of the intraabdominal organs was performed. This revealed a large amount of purulent fluid within the abdominal cavity. This appeared to be centered mostly in the pelvis; however, it did go into both the right and left upper quadrants as well. There was an inflamed small bowel as well. There was evidence of a ventral hernia, which did not have any bowel within it, but there did appear to be some purulent fluid in the hernia sac. We then placed another incision in the patient's left lower quadrant and a 5-mm trocar was inserted. I was then able to start to move the small bowel around and we identified what appeared to be an inflamed sigmoid colon. We had a very low threshold for conversion to open and at this point, I elected to convert to an open exploratory laparotomy. The insufflation was stopped. All air was released. The trocars were removed. I then extended the incision inferiorly using a #10 scalpel blade. This was carried all the way down to the pubic bone. Electrocautery was used to dissect down to the fascia. I then placed a finger within the peritoneal cavity and was able to open the fascia and peritoneum together for the entire length of the incision. Once this was done, I then explored the entire abdomen. We immediately identified that there was a redundant sigmoid colon, which was going over to the right side. There was a very hard mass of the sigmoid colon and when I brought this up into view, we were easily able to see an approximately 1.5-2 cm hole in the sigmoid colon with stool with hard pieces of stool coming out of it. I was then able to retract the small bowel up out of the pelvis and used wet laparotomy sponges. We then dissected the sigmoid colon free. I took down the white line of Toldt along the left pericolic gutter to free the colon up more. I then opened an avascular window proximally to the area of perforation. I then used the LigaSure impact device to sequentially clamp and divide the sigmoid colon mesentery until I was well below the area of perforation. At this point when we were below that area, I used a contour stapler to divide the rectosigmoid. I then placed two sutures on the corners of the rectal stump using 2-0 Prolene sutures to fritz the stump for potential later reanastomosis. I then continued to dissect the mesentery proximal to the perforation until there was an area of very little inflammation. I then used a RASHID 80 to divide the sigmoid colon, which was then passed off as specimen. We then copiously irrigated the abdominal cavity and I ran the entire small bowel to assure there was no further intermesenteric abscesses or any other pathology finding nothing else and after irrigating with approximately 5 liters of saline solution, we then brought out the descending colon for an end colostomy. A small opening was made where the left lower quadrant trocar site had been. A circular skin incision was made around this incision [place] [address] OPERATIVE REPORT Name: RUY CANDELARIA Room: [address] IN .R.#: [id number] Admission: 10/17/18 Attend Phys: Adithya Goldsmith MD Discharge: 10/28/18 Date of : 55 Report #: [id number] through to the fascia where a cruciate incision was made in the fascia and the muscle. The rectus muscle was then split bringing and then opening the peritoneum and then, we were able to bring the descending colon out through the abdominal wall. This was secured intraperitoneally using serosal sutures to the peritoneum to hold the descending colon in place. We then again checked for any other pathology and then placed two 19-Tristanian Zenon-Souza drains, one in the left lower quadrant, one in the right lower quadrant. When I placed the one in the right lower quadrant, we noticed some pulsatile bleeding. I immediately looked intraperitoneal and found that the drain had appeared to have gone through either the inferior epigastric vein or artery. I dissected this free and then placed sutures proximally and distally around the artery and veins and the bleeding stopped at this point that was on the right side. The left drain, there were no problems. We then closed the peritoneum and fascia including the hernia defect, which was dissected free and the hernia sac was excised. This area was closed primarily using a running #1 looped PDS suture. The subcutaneous tissues were then closed using 3-0 Vicryl suture. The skin was closed using devin. We then placed a Prevena wound VAC to cover the incision. I then matured the colostomy by first placing fascial sutures from the fascia to the serosa using 2-0 Prolene on an SH needle. This was done at the 12 o'clock, 3 o'clock, 6 o'clock, and 9 o'clock positions. I then matured the stoma in standard fashion removing the staple line and then everting the edges and placing a 2-0 and 3-0 Vicryl sutures to neyda and mature the stoma. Once this was complete, stoma appliance was placed. Sponge, needle and instrument counts were all found to be correct at the end of the procedure. We then transferred the patient back to the Intensive Care Unit in stable but guarded condition. <ELECTRONICALLY SIGNED> By: Corby Arellano DO 10/28/18 1405 1205 [id number] Arellano DO /nt
== END 2018-10-28 13:52 | disposition home health service (06) | DRG 853 ==
LOC: M.ERS 20:48 → M.SUR 20:48 → M.ICU 10-17 03:54 → M.2W 10-17 03:54 → M.ICU 10-17 06:49 → M.2W 10-24 17:28 → M.ICU 10-24 17:30 → M.2W 10-24 18:54 → M.3W 10-27 21:01
PROVIDERS: Family Medicine; Internal Medicine; Internal Medicine Pulmonary Disease; Nurse Practitioner Family; Surgery; ADMIT Family Medicine
PROC: 06HY33Z Insertion of Infusion Device into Lower Vein, Percutaneous Approach (ICD-10-PCS; principal; 2018-10-17)
PROC: 0BH17EZ Insertion of Endotracheal Airway into Trachea, Via Natural or Artificial Opening (ICD-10-PCS; principal; 2018-10-17)
PROC: 0WJP4ZZ Inspection of Gastrointestinal Tract, Percutaneous Endoscopic Approach (ICD-10-PCS; principal; 2018-10-17)
PROC: 0D1N0Z4 Bypass Sigmoid Colon to Cutaneous, Open Approach (ICD-10-PCS; principal; 2018-10-17)
PROC: 5A1945Z Respiratory Ventilation, 24-96 Consecutive Hours (ICD-10-PCS; principal; 2018-10-17)
PROC: 0DBN0ZZ Excision of Sigmoid Colon, Open Approach (ICD-10-PCS; principal; 2018-10-17)
PROC: 5A12012 Performance of Cardiac Output, Single, Manual (ICD-10-PCS; principal; 2018-10-17)
PROC: 0WQF0ZZ Repair Abdominal Wall, Open Approach (ICD-10-PCS; principal; 2018-10-17)
PROC: 0D9670Z Drainage of Stomach with Drainage Device, Via Natural or Artificial Opening (ICD-10-PCS; 2018-10-20)
PROC: 5A09357 Assistance with Respiratory Ventilation, Less than 24 Consecutive Hours, Continuous Positive Airway Pressure (ICD-10-PCS; 2018-10-21)
PROC: 02HV33Z Insertion of Infusion Device into Superior Vena Cava, Percutaneous Approach (ICD-10-PCS; 2018-10-21)
DX: A41.9 Sepsis, unspecified organism (principal); E11.10 Type 2 diabetes mellitus with ketoacidosis without coma; R65.21 Severe sepsis with septic shock; N17.0 Acute kidney failure with tubular necrosis; I46.9 Cardiac arrest, cause unspecified; E43 Unspecified severe protein-calorie malnutrition; J96.01 Acute respiratory failure with hypoxia; J96.02 Acute respiratory failure with hypercapnia; K65.9 Peritonitis, unspecified; K57.20 Diverticulitis of large intestine with perforation and abscess without bleeding; G93.40 Encephalopathy, unspecified; D62 Acute posthemorrhagic anemia; J98.11 Atelectasis; E87.4 Mixed disorder of acid-base balance; G93.1 Anoxic brain damage, not elsewhere classified; G25.81 Restless legs syndrome; I25.10 Atherosclerotic heart disease of native coronary artery without angina pectoris; K43.2 Incisional hernia without obstruction or gangrene; N18.9 Chronic kidney disease, unspecified; E11.65 Type 2 diabetes mellitus with hyperglycemia; J44.9 Chronic obstructive pulmonary disease, unspecified; E11.22 Type 2 diabetes mellitus with diabetic chronic kidney disease; R07.89 Other chest pain; I12.9 Hypertensive chronic kidney disease with stage 1 through stage 4 chronic kidney disease, or unspecified chronic kidney disease; E86.0 Dehydration; B19.20 Unspecified viral hepatitis C without hepatic coma; F17.210 Nicotine dependence, cigarettes, uncomplicated; E83.51 Hypocalcemia; E87.6 Hypokalemia; Z68.36 Body mass index [BMI] 36.0-36.9, adult; Z22.322 Carrier or suspected carrier of Methicillin resistant Staphylococcus aureus; Z95.5 Presence of coronary angioplasty implant and graft; Z90.49 Acquired absence of other specified parts of digestive tract; Z90.710 Acquired absence of both cervix and uterus; Z87.81 Personal history of (healed) traumatic fracture; Z79.51 Long term (current) use of inhaled steroids; Z79.82 Long term (current) use of aspirin; Z79.899 Other long term (current) drug therapy; Z80.8 Family history of malignant neoplasm of other organs or systems

== ENCOUNTER 2018-10-31 11:02 | Observation (INO) | payer MEDICAID ==
[~2018-10-31] VITALS: Ht 152.4 cm; Wt 68.0 kg
[~2018-10-31 11:02] MED LIST changes: +AMOX TR-K CLV1 EAC3 PO; +GLUCOPHAGE500 MG PO; +LISINOPRIL5 MG PO; +METRONIDAZOLE500 M4 PO; +PREDNISONE 10 M10 M1 PO
[2018-10-31 11:06] VITALS: BP 118/52
[2018-10-31 11:32] LABS: HEMATOCRIT 31.7 % (37.0-47.0); MCH 26.1 pg (26.0-34.0); MCHC 31.5 g/dL (28.0-37.0); MCV 82.9 fL (80.0-100.0); MPV 8.3 fl. (7.2-11.1); NUCLEATED RBCS 0 /100WBC; PLATELET COUNT* 478 thou/uL (150-400); RBC 3.82 mil/uL (4.20-5.00); RDW-CV 22.8 % (10.5-14.5); WBC 28.6 thou/uL (4.0-11.0)
[2018-10-31 11:43] LABS: APTT 26.2 Seconds (25.0-31.3); PROTIME 10.1 Seconds (9.20-11.50)
[2018-10-31 11:56] LABS: ANION GAP 11 mmol/L (7-16); BUN 42 mg/dL (7-18); CALCIUM 8.2 mg/dL (8.5-10.1); CHLORIDE 101 mmol/L (98-107); CO2 21 mmol/L (21-32); CREATININE 1.5 mg/dL (0.6-1.3); GLUCOSE 234 mg/dL (70-99); POTASSIUM 4.1 mmol/L (3.5-5.1); SODIUM 133 mmol/L (136-145); TROPONIN-I LEVEL <0.06 ng/mL (<0.06)
[2018-10-31 12:06] LABS: ABSOLUTE LYMPHOCYTES 0.6 thou/uL (0.8-5.3); ABSOLUTE MONOCYTES 1.1 thou/uL (0.0-1.2); ABSOLUTE NEUTROPHILS 26.9 thou/uL (1.6-8.1); CLUMPED PLTS FEW; METAMYELOCYTES 1 %; MYELOCYTES 1 %; PLATELET ESTIMATE INCREASED; TOXIC GRANULATION 1+
[2018-10-31 12:07] LABS: HYPOCHROMASIA 1+; MICROCYTES 2+; OVALOCYTES 1+
[2018-10-31 12:08] LABS: ALBUMIN 2.5 g/dL (3.4-5.0); ALKALINE PHOSPHATASE 133 U/L (46-116); NT-PRO BRAIN NAT PEPTIDE 163 pg/mL (<300); SGOT 21 U/L (15-37); SGPT 14 U/L (30-65); TOTAL BILIRUBIN 0.4 mg/dL (<0.1-1.0); TOTAL PROTEIN 5.5 g/dL (6.4-8.2)
[2018-10-31 12:20] LABS: BE -8.9 mmol/L (-2 to +3); PCO2 31.9 mmHg (35.0-45.0); PO2 66.8 mmHg (75.0-100.0); pH 7.321 (7.340-7.450)
[2018-10-31 12:50] LABS: CK-MB MASS 1.3 ng/mL (<0.5-3.6)
--- NOTE | 2018-10-31 13:37 | EKG ---
[place] [address] ELECTROCARDIOGRAM REPORT Name: RUY CANDELARIA Room: [place] [address] ADM IN [facility].#: [id number] Admission: 10/31/18 Attend Phys: Adithya Goldsmith MD Discharge: Date of : 55 Report #: [id number] THIS REPORT FOR: //name// [facility] ED Test Date: 2018-10-31 Test Time: 11:07:18 Pat Name: RUY CANDELARIA Department: Room: [facility] Gender: F Beef Selector: Yazan PEREZ : 1955 Requested By: Светлана Mahan Order Number: [id number] MD: Simon Marks Measurements Intervals [place] Rate: 71 P: 60 IA: 146 QRS: 22 QRSD: 89 T: 75 QT: 397 QTc: 432 Interpretive Statements Sinus rhythm Compared to ECG 10/23/2018 14:02:29 T-wave abnormality no longer present Electronically Signed On 10-31-2018 13:37:05 CDT by Simon Marks [email or web address] <ELECTRONICALLY SIGNED> By: Simon Marks MD, [facility] 10/31/18 1337 1107 1107 Simon Marks MD, [facility] /EPI
[2018-10-31] MEDS ORDERED: PRENATAL PO (17:56)
[2018-10-31 18:26] VITALS: BP 125/53
[2018-10-31 18:30] VITALS: BP 100/44
--- NOTE | 2018-10-31 19:02 | NUR ---
ASSUMED PT CARE AT 1830 PT ADMITTED FROM ER. COME UP ON FLOOR ON BED ACCOMPANIED BY ER NURSE AND O2 2 L NC. PT DOES NOT WEAR O2 AT HOME. PT IS AOX4 SR PVC ON NURSING HOME ADMINISTRATOR. KEPT ON RA SATURATION 96% NO SOB. DENIES N/V. COMPLAINS OF PAIN LEVEL 10 IN CHEST. MORPHINE GIVEN FOR THAT. IV FLUID STARTED AT 80 PER HOUR ORDERED. ADMISSION HS DONE AT BEDSIDE. PICTURE OF WOUND TAKEN PLACED IN CHART. PUREWICK CATHETER PLACED IN. WILL GIVE REPORT TO SUPERVISOR ASSEMBLY NURSE
[2018-11-01] VITALS (7 sets, daily range): BP systolic 97–138; BP diastolic 40–61
[2018-11-01 04:51] LABS: ABSOLUTE BASOPHILS 0.1 thou/uL (0.0-0.2); ABSOLUTE LYMPHOCYTES 1.6 thou/uL (0.8-5.3); ABSOLUTE MONOCYTES 1.2 thou/uL (0.0-1.2); ABSOLUTE NEUTROPHILS 15.4 thou/uL (1.6-8.1); BASOPHILS 0.4 %; EOSINOPHILS 0.1 %; HEMATOCRIT 30.4 % (37.0-47.0); HEMOGLOBIN 9.5 gm/dL (12.0-15.0); LYMPHOCYTES 8.9 %; MCH 26.4 pg (26.0-34.0); MCHC 31.3 g/dL (28.0-37.0); MCV 84.4 fL (80.0-100.0); MONOCYTES 6.6 %; MPV 8.1 fl. (7.2-11.1); NUCLEATED RBCS 0 /100WBC; RDW-CV 24.4 % (10.5-14.5); WBC 18.4 thou/uL (4.0-11.0)
--- NOTE | 2018-11-01 04:56 | NUR ---
ASSUMED CARE OF PT AT 1900 PT ALERT AND ORIENTED X4 VS AND ASSESSMENT AT BASELINE. PT HAD PAIN MEDS TWICE THEN SLEPT THROUGHT HE NIGHT. WILL CONTINUE PLAN OF CARE.
[2018-11-01 05:20] LABS: PLATELET COUNT* 368 thou/uL (150-400)
[2018-11-01 05:24] LABS: ANION GAP 11 mmol/L (7-16); BUN 22 mg/dL (7-18); CALCIUM 8.1 mg/dL (8.5-10.1); CHLORIDE 107 mmol/L (98-107); CO2 20 mmol/L (21-32); CREATININE 0.8 mg/dL (0.6-1.3); GLUCOSE 155 mg/dL (70-99); POTASSIUM 3.6 mmol/L (3.5-5.1); SODIUM 138 mmol/L (136-145); TROPONIN-I LEVEL <0.06 ng/mL (<0.06)
--- NOTE | 2018-11-01 09:00 | NUR ---
ASSUMED CARE OF PT AT 0730. PT RESTING IN BED. PT A&0X4, COMPLAINS OF PAIN TO RIBS AND STERNUM. TREATED WITH PRN HYDROCODONE WITH PARTIAL RELIEF. PT TRACING SR ON THE MANAGER ERP. ON RA SAT UPPER 90'S. COLOSTOMY TO DEPENDENT DRAINAGE. IVF. PT UP SBA TO BATHROOM. PT GOAL FOR TODAY IS CT ABD/PELVIS, PT AND OT EVAL AND TREAT AND DISCHARGE PLANNING. PT STATES SHE IS GOING HOME TODAY NO MATTER WHAT AND THAT SHE MUST GET HOME TO HER DOGS. AM ASSESSMENT CHARTED. MEDICATIONS PER OCT. PT REPOSITIONED EVERY 2 HOURS FOR COMFORT. HOURLY ROUNDING OBSERVED. BED IN LOW POSITION. CALL LIGHT WITHIN REACH. WILL CONTINUE PLAN OF CARE.
[2018-11-01 09:17] LABS: URINE BILIRUBIN NEGATIVE (Negative); URINE BLOOD NEGATIVE (Negative); URINE CLARITY CLEAR; URINE COLOR YELLOW; URINE GLUCOSE-RANDOM NEGATIVE (Negative); URINE KETONES NEGATIVE (Negative); URINE LEUKOCYTES-REFLEX NEGATIVE (Negative); URINE NITRITE-REFLEX NEGATIVE (Negative); URINE PROTEIN NEGATIVE (Negative); URINE UROBILINOGEN 0.2 E.U./dl (0.2-1.0)
[2018-11-01 09:26] LABS: AMP/METHAMP Negative (Negative); BARBITURATES Negative (Negative); BENZODIAZEPINES POSITIVE (Negative); COCAINE Negative (Negative); METHADONE Negative (Negative); OPIATES POSITIVE (Negative); PCP Negative (Negative); THC Negative (Negative)
--- NOTE | 2018-11-01 12:41 | EKG ---
[place] [address] ELECTROCARDIOGRAM REPORT Name: RUY CANDELARIA Room: [address]R.#: [id number] Admission: 10/31/18 Attend Phys: Adithya Goldsmith MD Discharge: Date of : 55 Report #: [id number] THIS REPORT FOR: //name// [facility] Test Date: 2018-11-01 Test Time: 09:00:19 Pat Name: RUY CANDELARIA Department: Room: [address] Gender: F Small Package And Bundle Sorter Clerk: : 1955 Requested By: Adithya Goldsmith Order Number: [id number] Reading MD: Cuco May Measurements Intervals [place] Rate: 88 P: 55 TN: 148 QRS: 15 QRSD: 89 T: 58 QT: 352 QTc: 426 Interpretive Statements Sinus rhythm Ventricular premature complex Probable left atrial enlargement Borderline T abnormalities, anterior leads Compared to ECG 10/31/2018 11:07:18 Ventricular premature complex(es) now present Electronically Signed On 11-01-2018 12:41:36 CDT by Cuco May [email or web address] <ELECTRONICALLY SIGNED> By: Cuco May MD, [facility] 11/01/18 1241 09 09 Cuco May MD, [facility] /EPI
--- NOTE | 2018-11-01 13:00 | NUR ---
MET WITH PT TO DISCUSS HOME SITUATION/DC PLANNING. PT LIVES ALONE IN [place], HAS NO EQUIPMENT. WAS JUST RELEASED FROM HOSPITAL AFTER SURGERY AND NEW OSTOMY, IS FOLLOWED AT HOME BY [facility]. PT ASKED ABOUT GETTING A WALKER, OBTAINED AUTH THRU MEDICAID. CALLED AND FAXED ORDERS TO [facility]. SHE DELIVERED WALKER TO PT.. PT ALSO ASKED ABOUT GETTING A TOILET RISER AND SHOWER BENCH, THESE ARE NOT COVERED BY MEDICAID BUT EXPLAINED THAT COULD ASK FOR EXCEPTION. PT DECLINED AND STATED SHE WOULD HAVE HER DTR OR CG CHECK THRIFT STORE OR ORDER ONE. PT HAS DC ORDERS, TO RETURN HOME WITH [facility]. CALLED AND FAXED DC ORDERS TO [facility].
--- NOTE | 2018-11-01 15:20 | NUR ---
DISCHARGE ORDERS RECEIVED. DISCHARGE INSTRUCTIONS, CARE NOTES, AND FOLLOW UP APPTS GIVEN TO PT. PT COMMUNICATES UNDERSTANDING OF DISCHARGE TEACHING. IV AND SALES COMPENSATION ANALYST REMOVED. PT DISCHARGED WITH ALL BELONGINGS AND PAPERWORK VIA WHEELCHAIR WITH NURSING STAFF TO FAMILY OWN PERSONAL VEHICLE.
[2018-11-03] MEDS ORDERED: COZAAR 25 MG TA25 M1 PO (14:30)
[2018-11-03] MEDS ORDERED: IBUPROFEN 800800 M1 PO (14:32)
== END 2018-11-01 15:20 | disposition home health service (06) ==
LOC: M.ERS 11:02 → M.TBA-ER 12:14 → M.2W 12:14
PROVIDERS: Personal Emergency Response Attendant; ADMIT Family Medicine
DX: S22.20XA Unspecified fracture of sternum, initial encounter for closed fracture (principal); I12.9 Hypertensive chronic kidney disease with stage 1 through stage 4 chronic kidney disease, or unspecified chronic kidney disease; E11.22 Type 2 diabetes mellitus with diabetic chronic kidney disease; N18.2 Chronic kidney disease, stage 2 (mild); R74.0 Nonspecific elevation of levels of transaminase and lactic acid dehydrogenase [LDH]; J96.01 Acute respiratory failure with hypoxia; J44.9 Chronic obstructive pulmonary disease, unspecified; E11.65 Type 2 diabetes mellitus with hyperglycemia; D63.8 Anemia in other chronic diseases classified elsewhere; I25.10 Atherosclerotic heart disease of native coronary artery without angina pectoris; N17.0 Acute kidney failure with tubular necrosis; F17.210 Nicotine dependence, cigarettes, uncomplicated; Z87.19 Personal history of other diseases of the digestive system; Z95.5 Presence of coronary angioplasty implant and graft; Z90.710 Acquired absence of both cervix and uterus; Z98.890 Other specified postprocedural states

== ENCOUNTER 2018-11-03 14:19 | Inpatient (IN) | payer MEDICAID ==
[~2018-11-03] VITALS: Ht 152.4 cm; Wt 77.6 kg
[~2018-11-03 14:19] MED LIST changes: +PRENATAL PO
[2018-11-03 14:21] VITALS: BP 96/51
[2018-11-03] MEDS ORDERED: DOK100 MG PO (14:28)
[2018-11-03] MEDS ORDERED: COZAAR 25 MG TA25 M1 PO ×2 (14:30)
[2018-11-03] MEDS ORDERED: IBUPROFEN 800800 M1 PO ×2 (14:32)
[2018-11-03] MEDS ORDERED: CARDIZEM CD120 MG PO (14:32)
[2018-11-03] MEDS ORDERED: CELEXA20 MG PO (14:33)
--- NOTE | 2018-11-03 14:33 | NUR ---
PT STATES THAT SHE HAS A "SORE ON HER COCCYX". WOUND IS RED AND BLANCHED.
[2018-11-03] MEDS ORDERED: AMBIEN 5 MG TABL5 M1 PO (14:34)
[2018-11-03] MEDS ORDERED: CARVEDILOL3.125 MG PO (14:35)
[2018-11-03] MEDS ORDERED: HYDROXYZINE HCL25 M1 PO (14:36)
[2018-11-03] MEDS ORDERED: NEURONTIN600 MG PO (14:37)
[2018-11-03] MEDS ORDERED: SPIRONOLACTONE25 M1 PO (14:37)
--- NOTE | 2018-11-03 14:40 | NUR ---
20 G IV IN LEFT FOREARM INSERTED BY THIS NURSE. BLOOD CULTURE X1 SET DRAWN FROM IV SITE. BIOSTATISTICIAN AT BEDSIDE COLLECTED BLOOD CULTURE.
--- NOTE | 2018-11-03 15:04 | NUR ---
PT PRESENTED TO ED WITH NICOTINE PATCH ON R UPPER ARM.
[2018-11-03 15:06] LABS: HEMATOCRIT 32.3 % (37.0-47.0); HEMOGLOBIN 10.2 gm/dL (12.0-15.0); MCH 26.9 pg (26.0-34.0); MCHC 31.6 g/dL (28.0-37.0); MCV 85.3 fL (80.0-100.0); MPV 8.2 fl. (7.2-11.1); NUCLEATED RBCS 0 /100WBC; PLATELET COUNT* 327 thou/uL (150-400); RBC 3.78 mil/uL (4.20-5.00); RDW-CV 24.8 % (10.5-14.5); WBC 14.3 thou/uL (4.0-11.0)
[2018-11-03 15:09] LABS: APTT 22.8 Seconds (25.0-31.3)
[2018-11-03 15:18] LABS: ANION GAP 10 mmol/L (7-16); BUN 19 mg/dL (7-18); CALCIUM 8.3 mg/dL (8.5-10.1); CHLORIDE 104 mmol/L (98-107); CO2 22 mmol/L (21-32); CREATININE 0.8 mg/dL (0.6-1.3); GLUCOSE 203 mg/dL (70-99); POTASSIUM 3.9 mmol/L (3.5-5.1); SODIUM 136 mmol/L (136-145); TROPONIN-I LEVEL <0.06 ng/mL (<0.06)
[2018-11-03 15:20] LABS: ALBUMIN 2.4 g/dL (3.4-5.0); ALKALINE PHOSPHATASE 161 U/L (46-116); NT-PRO BRAIN NAT PEPTIDE 126 pg/mL (<300); SGOT 20 U/L (15-37); SGPT 14 U/L (30-65); TOTAL BILIRUBIN 0.3 mg/dL (<0.1-1.0); TOTAL PROTEIN 5.4 g/dL (6.4-8.2)
[2018-11-03 15:26] LABS: ABSOLUTE LYMPHOCYTES 0.7 thou/uL (0.8-5.3); ABSOLUTE MONOCYTES 0.3 thou/uL (0.0-1.2); ABSOLUTE NEUTROPHILS 13.3 thou/uL (1.6-8.1); ATYPICAL LYMPHS 1 %
[2018-11-03 15:27] LABS: ANISOCYTOSIS 2+; PLATELET ESTIMATE ADEQUATE; POIKILOCYTOSIS 2+
[2018-11-03 16:28] VITALS: BP 121/52
[2018-11-03 17:00] VITALS: BP 116/41
--- NOTE | 2018-11-03 18:29 | NUR ---
PT admitted on tele floor at 1640 report received from er nurse. pt is aox3 forgetful, lethargic and sleepy. on 2 l nc saturation is 93%. pt is a poor historian due to cognitive state. pictures of wound taken. medication list printed and placed in chart. hospitalist aware. refer to charting. colostomy bag changed. iv fluid at 100 per hour. will continue to monitor pt
[2018-11-03 22:54] LABS: URINE BILIRUBIN NEGATIVE (Negative); URINE BLOOD NEGATIVE (Negative); URINE CLARITY CLEAR; URINE COLOR YELLOW; URINE GLUCOSE-RANDOM 3+ (Negative); URINE KETONES NEGATIVE (Negative); URINE LEUKOCYTES-REFLEX NEGATIVE (Negative); URINE NITRITE-REFLEX NEGATIVE (Negative); URINE PROTEIN NEGATIVE (Negative); URINE SPECIFIC GRAVITY <= 1.005 (1.005-1.030); URINE UROBILINOGEN 0.2 E.U./dl (0.2-1.0)
[2018-11-04] VITALS: BP 106/42
[2018-11-04 04:00] VITALS: BP 114/46
--- NOTE | 2018-11-04 04:31 | NUR ---
ASSUMED PT CARE AT 1930. NURSING ASSESSMENT COMPLETED. SR ON INVESTMENT ACCOUNTING CLERK. PT C/O PAIN. HOME MEDICATIONS RESTARTED, PAIN MEDICATION ADMINISTERED AND EFFECTIVE AEB PT SLEEPING DURING REASSESSMENT. IV FLUIDS INFUSING. HIGH FALL PRECAUTIONS IN PLACE, CALL LIGHT WITHIN REACH. Q2H REPOSITIONING COMPLETED.
[2018-11-04 05:27] LABS: ABSOLUTE LYMPHOCYTES 0.3 thou/uL (0.8-5.3); ABSOLUTE MONOCYTES 0.1 thou/uL (0.0-1.2); ABSOLUTE NEUTROPHILS 11.3 thou/uL (1.6-8.1); HEMATOCRIT 29.2 % (37.0-47.0); HEMOGLOBIN 9.1 gm/dL (12.0-15.0); LYMPHOCYTES 2.4 %; MCH 26.3 pg (26.0-34.0); MCHC 31.2 g/dL (28.0-37.0); MCV 84.4 fL (80.0-100.0); MONOCYTES 0.5 %; MPV 8.5 fl. (7.2-11.1); NUCLEATED RBCS 0 /100WBC; PLATELET COUNT* 328 thou/uL (150-400); POLYS 97.1 %; RBC 3.46 mil/uL (4.20-5.00); RDW-CV 24.6 % (10.5-14.5); WBC 11.7 thou/uL (4.0-11.0)
[2018-11-04 05:44] LABS: CALCIUM 7.8 mg/dL (8.5-10.1); CREATININE 0.7 mg/dL (0.6-1.3); POTASSIUM 3.7 mmol/L (3.5-5.1)
[2018-11-04 08:00] VITALS: BP 121/59
--- NOTE | 2018-11-04 11:47 | NUR ---
ASSUMED PT CARE AT 0700 REPORT RECEIVED FROM NURSE PT IS AOX4 SR ON OPERATIONAL ASSISTANT. ON 2 L NC AND SATURATION IS 94% ,PT DENIES PAIN OR N.V. ON NS AT 100 PER HOUR. METFORMIN GIVEN THIS AM. PT PHARMA CALLED TO CONFIRM MED LIST. MED LIST IS IN PT CHART. CARDIOLOGUY SAW PT PT ABLE TO EAT. COLOSTOMY BAG INTACT. LUCH ORDERED. WILL CONTINUE TO MONITOR PT
[2018-11-04 13:01] VITALS: BP 123/54
[2018-11-04 14:04] LABS: HEMATOCRIT 29.3 % (37.0-47.0); HEMOGLOBIN 9.1 gm/dL (12.0-15.0); MCH 26.6 pg (26.0-34.0); MCV 85.7 fL (80.0-100.0); MPV 8.2 fl. (7.2-11.1); NUCLEATED RBCS 0 /100WBC; PLATELET COUNT* 334 thou/uL (150-400); RBC 3.42 mil/uL (4.20-5.00); RDW-CV 25.6 % (10.5-14.5); WBC 15.3 thou/uL (4.0-11.0)
[2018-11-04 14:15] LABS: CREATININE 0.9 mg/dL (0.6-1.3); POTASSIUM 3.7 mmol/L (3.5-5.1)
--- NOTE | 2018-11-04 15:04 | NUR ---
Pt is A&O. Resides at [facility]. Pt recently dc from the [facility] with [facility]. Pt has inhome CGs through her [facility]. Pt has a walker that she can use for mobility. No hx of SNF. Good support sx. Goal is home with HH at pr. Following.
[2018-11-04 15:11] LABS: ABSOLUTE LYMPHOCYTES 0.3 thou/uL (0.8-5.3); ABSOLUTE MONOCYTES 0.2 thou/uL (0.0-1.2); ABSOLUTE NEUTROPHILS 14.8 thou/uL (1.6-8.1)
[2018-11-04 15:12] LABS: ANISOCYTOSIS 2+; MICROCYTES 1+; OVALOCYTES 1+; PLATELET ESTIMATE ADEQUATE
[2018-11-04 15:14] VITALS: BP 120/49
[2018-11-04 15:14] LABS: HYPOCHROMASIA Occasional
[2018-11-04 15:16] LABS: POIKILOCYTOSIS Occasional
--- NOTE | 2018-11-04 15:49 | NUR ---
WOUND NURSE: PATIENT SEEN TO ADDRESS THE FOLLOWING SKIN LESIONS. RIGHT KNEE PRESENTS WITH A MINOR ABRASION THAT PATIENT DESCRIBES A RUG BURN FROM A FALL. CONTAINS PARTIAL THICKNESS TISSUE LOSS, WITH NO DRAINAGE NOTED. BORDERED FOAM IN PLACE FOR PROTECTION. PATIENT ALSO HAS CLOSED DRAIN SITE ON LOWER ABDOMEN WITH NO DRAINAGE, BUT SOME BRUISING. THIS IS PROTECTEDD WITH BORDERED FOAM DRESSING.
[2018-11-04 20:37] VITALS: BP 115/54
[2018-11-05] VITALS (7 sets, daily range): BP systolic 136–158; BP diastolic 58–85
--- NOTE | 2018-11-05 06:15 | NUR ---
ASSUMED PT CARE AT 1930. NURSING ASSESSMENT COMPLETED. SINUS RHYTHM ON DRAFTER CIVIL (CAD). PT RESTED WELL THIS SHIFT, C/O PAIN, PRN PAIN MEDICATION ADMINISTERED AND EFFECTIVE. CONTINUES ON ROOM AIR. HOURLY ROUNDING COMPLETED. CALL LIGHT WITHIN REACH.
--- NOTE | 2018-11-05 10:00 | EKG ---
[place] [address] ELECTROCARDIOGRAM REPORT Name: RUY CANDELARIA Room: [address] ADM IN .R.#: [id number] Admission: 11/03/18 Attend Phys: Lauren Banegas Discharge: Date of : 55 Report #: [id number] THIS REPORT FOR: //name// [facility] ED Test Date: 2018-11-03 Test Time: 14:34:00 Pat Name: RUY CANDELARIA Department: Room: [facility] Gender: F Grants Manager: Yazan BRASHER : 1955 Requested By: Lambert Felton Order Number: [id number] MD: Simon Marks Measurements Intervals [place] Rate: 68 P: 222 AR: 193 QRS: 0 QRSD: 217 T: 98 QT: 456 QTc: 486 Interpretive Statements Sinus or ectopic atrial rhythm Left atrial enlargement Left ventricular hypertrophy Abnormal T, consider ischemia, lateral leads Compared to ECG 11/01/2018 09:00:19 Ectopic atrial rhythm now present Left ventricular hypertrophy now present Possible ischemia now present Sinus rhythm no longer present Ventricular premature complex(es) no longer present T-wave abnormality still present Electronically Signed On 11-05-2018 10:00:43 CDT by Simon Marks [email or web address] <ELECTRONICALLY SIGNED> By: Simon Marks MD, [facility] 11/05/18 1000 1434 1434 Simon Marks MD, [facility] /EPI
--- NOTE | 2018-11-05 11:19 | CON ---
[address] [address] CONSULTATION Name: RUY CANDELARIA Room: [address] IN M.R.#: [id number] Admission: 11/03/18 Attend Phys: Lauren Banegas Discharge: Date of : 55 Report #: [id number] THIS REPORT FOR: //name// CC: DARIUS physician/PCP Efra Patel DATE OF SERVICE: 11/04/2018 NEW PATIENT EVALUATION REASON FOR EVALUATION: Respiratory distress on admission and history of COPD. HISTORY OF PRESENT ILLNESS: The patient is a 63-year-old woman with past medical history of coronary artery disease. She had post percutaneous intervention in the past, presented with abdominal pain, had perforated bowel and required resection and colostomy. Had resuscitation postoperatively with rib fracture and sternal injury as well as fracture. Since then, she has been having some chest pain related to the fractures, pleuritic in nature, however, improving. When she initially presented, she came with a fall at home. She was on oxygen; however, at this time, on my examination, the patient denies any worsening cough, mucus production or hemoptysis or wheezing. Her lung exam was clear. She has as above, pleuritic chest pain with rib fractures. PAST MEDICAL HISTORY: Coronary artery disease, COPD, on Spiriva, on inhalers, arrest after surgery on 10/17/2018, restless leg. PAST SURGICAL HISTORY: Cholecystectomy, Efrain's end colostomy on 10/16/2018. FAMILY HISTORY: Significant family history, mother with cancer. SOCIAL HISTORY: Unfortunately, she just quit smoking like a month ago. She used to be a smoker. REVIEW OF SYSTEMS: A 14-point review of system reviewed and otherwise negative chest pain. PHYSICAL EXAMINATION: GENERAL: The patient is pleasant, not in distress. VITAL SIGNS: Stable. Her pulse is 83. On my examination, her oxygen saturation was 95% on room air, blood pressure 121/59, respiratory rate 16. HEENT: Eyes nonicteric. NECK: Supple. No JVD. CHEST: Clear to auscultation. CARDIOVASCULAR: [place] [address] CONSULTATION Name: RUY CANDELARIA Room: [address] IN [facility]#: [id number] Admission: 11/03/18 Attend Phys: Lauren Banegas Discharge: Date of : 55 Report #: [id number] ABDOMEN: Soft and nontender. EXTREMITIES: No edema. NEUROLOGIC: No focal deficit. PSYCHIATRIC: Alert, oriented, flat affect. LABORATORY AND OTHER DATABASE: Chest x-ray, which I reviewed was clear. White blood cell count 11.7. ASSESSMENT AND PLAN: 1. Chest pain related to rib fracture. At this time, recommend to add incentive spirometry to help prevent atelectasis. 2. Chronic obstructive pulmonary disease, on home with Spiriva, continue her home medications, currently not in exacerbation. Okay to discontinue steroids. Discontinue antibiotics. Recommend for the patient to have outpatient pulmonary function test and follow up with pulmonary, I greet for her to quit smoking. Thank you for the consultation, this was discussed with her nurse. The patient is cleared for discharge and currently tolerating room air. <ELECTRONICALLY SIGNED> By: Jojo Jones MD 11/05/18 1119 1257 [id number] Jones MD /nt
--- NOTE | 2018-11-05 11:33 | NUR ---
Nutrition: Pt assessed for pressure ulcer risk on sacrum. Pt also has abdominal incision, and ostomy. Wt: 162#. Pt was in hospital with divterticulitis/perf in October. Tolerating regulat diet currently. BG 242, alb 2.4, prealb 16.9. RD ordered Beneprotein tid for added protein intake. Mild risk.
[2018-11-05 11:47] LABS: ABSOLUTE BASOPHILS 0.1 thou/uL (0.0-0.2); ABSOLUTE LYMPHOCYTES 0.3 thou/uL (0.8-5.3); ABSOLUTE MONOCYTES 0.3 thou/uL (0.0-1.2); BASOPHILS 0.5 %; EOSINOPHILS 0.2 %; HEMATOCRIT 28.3 % (37.0-47.0); HEMOGLOBIN 8.7 gm/dL (12.0-15.0); LYMPHOCYTES 1.6 %; MCH 26.5 pg (26.0-34.0); MCHC 30.7 g/dL (28.0-37.0); MCV 86.2 fL (80.0-100.0); MONOCYTES 1.4 %; MPV 8.2 fl. (7.2-11.1); NUCLEATED RBCS 0 /100WBC; PLATELET COUNT* 286 thou/uL (150-400); POLYS 96.3 %; RBC 3.29 mil/uL (4.20-5.00); RDW-CV 25.1 % (10.5-14.5); WBC 17.7 thou/uL (4.0-11.0)
[2018-11-05 11:57] LABS: ALBUMIN 2.2 g/dL (3.4-5.0); CALCIUM 8.1 mg/dL (8.5-10.1); CREATININE 0.8 mg/dL (0.6-1.3); POTASSIUM 4.2 mmol/L (3.5-5.1); TOTAL BILIRUBIN 0.2 mg/dL (<0.1-1.0); TOTAL PROTEIN 4.9 g/dL (6.4-8.2)
--- NOTE | 2018-11-05 12:20 | NUR ---
Spoke with , thinks Pt needs skilled, Pt only has [place] [facility]. Rehab consult to be placed, therapies to be ordered.
--- NOTE | 2018-11-05 15:30 | NUR ---
RECEIVED REHAB ADMISSION REFERRAL. ARE AWAITING THERAPY NOTES. WILL FOLLOW AND MAKE RECOMMENDATIONS ONCE MEDICAL WORK UP IS COMPLETE AND THERAPY HAS SEEN PT. THANK YOU FOR THIS CONSULT
--- NOTE | 2018-11-05 18:46 | NUR ---
patient resting in bed. vital signs stable abd patient in no apparent signs of distress. coccyx wound dressed with mepilex boarder dressing. hourly rounding completed for patient safety. rehab is assessing patient.
[2018-11-06] VITALS: BP 146/68
[2018-11-06 04:00] VITALS: BP 135/64
--- NOTE | 2018-11-06 04:53 | NUR ---
ASSUMED PT CARE AT APPROX 1930. PT IS AWAKE AND ORIENTED X4. VSS ON ROOM AIR. MOTHER REPAIRER IN PLACE TRACING SR. RE-ASSESSMENT DONE AND CHARTED. WITH C/O STERNAL AND LEFT RIB CAGE PAIN, WAS PARTIALLY RELIEVED BY PRN PAIN MEDICATIONS GIVEN PER MAR AND SOME COLD PACK. POSTION CHANGES DONE Q2H. CALL LIGHT WITHIN REACH. HOURLY ROUNDING DONE FOR PT SAFETY.
[2018-11-06 08:00] VITALS: BP 147/56
[2018-11-06 11:32] VITALS: BP 138/59
[2018-11-06 15:30] VITALS: BP 150/61
--- NOTE | 2018-11-06 15:43 | NUR ---
ASSUMED PT CARE 0800, LYING IN BED, AOX4, SBA, USES WALKER. O2 SAT AT 90'S ON RA. TRACING SR ON CHOKER SETTER. PT COMPLAINS OF STERNAL PAIN. PT GOAL IS MGMT OF PAIN. PT IS FOR ACCU CHECK, REGULAR DIET. PT HAS BM TODAY, HAS COLOSTOMY, USES COMMODES.IV ACCESS INTACT. COUGHING NOTED, PT LUNG SOUND DIMINISH, COARSE. PT HAS OPEN PRESSURE SORE AT COCCYX, WOUND CULTURE COLLECTED, WOUND DRESSING CHANGED. REPOSITION HOURLY. FALL PRECAUTION. VSS, AM ASSESSMENT CHARTED. MEDS GIVEN PER MAR. HOURLY ROUNDING. CALL LIGHT AND BELONGINGS WITHIN REACH. WILL CONTINUE TO MONITOR.
--- NOTE | 2018-11-06 17:51 | NUR ---
PT AOX4, SBA WITH WALKER, O2 AT 90'S RA. PT HAS CONSTANT STERNAL PAIN, PRN PAIN MEDS GIVEN. PT SR ON TELE.IV ACCESS INTACT, SALINE LOCK. PT COLOSTOMY DRAINING FINE, EMPTIED TWICE TODAY. PT HAS OPEN PRESSURE SORE AT COCCYX, DRESSING CHANGED, POSITION EVERY HOURLY. PT WALKS TO THE H SBA. FALL PRECAUTION OBSERVE. REMIND TO USE CALL LIGHT.WILL CONTINUE TO MONITOR
--- NOTE | 2018-11-06 18:40 | NUR ---
I HAVE REVIEWED AND AGREE WITH THE ASSESMENT AND NOTES OF SLALY LUNDBERG ON 11/06/18. PT C/O STERNAL CP, MEDS GIVEN PER OCT. PTS COLOSTOMY DRAINING SOFT BROWN STOOL. WOUND DRESSING CHANGED. PT ON RA, USING WALKER, WALKED WITH STAFF IN [place] TODAY. WILL CONTINUE TO MONITOR.
[2018-11-06 20:00] VITALS: BP 138/69
[2018-11-07] VITALS: BP 143/55
[2018-11-07 04:00] VITALS: BP 144/68
[2018-11-07 05:12] LABS: HEMATOCRIT 30.5 % (37.0-47.0); HEMOGLOBIN 9.6 gm/dL (12.0-15.0); MCH 26.9 pg (26.0-34.0); MCHC 31.6 g/dL (28.0-37.0); MCV 85.3 fL (80.0-100.0); MPV 7.9 fl. (7.2-11.1); RBC 3.57 mil/uL (4.20-5.00); RDW-CV 24.5 % (10.5-14.5); WBC 17.2 thou/uL (4.0-11.0)
[2018-11-07 05:17] LABS: CALCIUM 8.2 mg/dL (8.5-10.1); CREATININE 0.8 mg/dL (0.6-1.3); POTASSIUM 3.7 mmol/L (3.5-5.1)
--- NOTE | 2018-11-07 05:52 | NUR ---
ASSUMED CARE OF PT AFTER REPORT AT 1930. PT A&OX4. VSS. PHYSICAL ASSESSMENT COMPLETED AND CHARTED. PT ON RA WITH 92% O2 SAT. PT TRACING SR/ST/PVC ON TELE. PT UPSTANDBY TO BSC. PT COMPLAINED OF BACK & CHEST PAIN-PAIN MEDS GIVEN PER OCT. ALSO, PT COMPLAINED OF NAUSEA- DR CORONADO INFORMED WITH NEW ORDER. PTS FAMILY EXPRESSED CONCERN OF DISCHARGING PT AT HOME BY HERSELF. PT RESTED WELL ON BED. CALL LIGHT WITHIN REACH.
[2018-11-07 08:00] VITALS: BP 157/72
[2018-11-07 12:11] VITALS: BP 136/66
--- NOTE | 2018-11-07 14:17 | NUR ---
Pt discharging to acute rehab today.
--- NOTE | 2018-11-07 14:18 | NUR ---
ASSUMED PT CARE 0800., LYING IN BED, AOX4, SBA WITH WALKER. O2 SAT AT 90'S ON RA. TRACING SR ON SEXUAL ASSAULT RESPONSE COORDINATOR, FOR ACCU CHECK. PT COMPLAINS OF CONSTANT STERNAL PAIN. PT GOAL IS MGMT OF PAIN. PT LAST BM TODAY, COLOSTOMY FUNCTIONING FINE. ABDOMEN SOFT AND ROUND. COUGHING CLEAR SECRETION, WHEEZES AND CRACKLES NOTED. PT HAS OPEN SORE PRESSURE AT HER COCCYX, DRESSING INTACT. FALL PRECAUTION, REPOSITION HOURLY, CALL LIGHT WITHIN REACH. VS, AM ASSESSMENT CHARTED, MEDS GIVEN PER MAR WILL CONTINUE TO MONITOR
[2018-11-07] MEDS ORDERED: PREDNISONE 10 M10 MG PO (15:33)
[2018-11-07] MEDS ORDERED: MUCINEX600 MG PO (15:35)
[2018-11-07] MEDS ORDERED: IPRAT-ALBUT 0.5-3 ML INH (15:37)
[2018-11-07] MEDS ORDERED: TRADJENTA5 MG ×2 (15:38)
[2018-11-07] MEDS ORDERED: NICOTINE TRANSD14 M1 TRANSDERM (15:44)
[2018-11-07] MEDS ORDERED: LIDOCAINE PAIN1 EACH TOP (15:48)
[2018-11-07] MEDS ORDERED: NORCO 5-325 TA1 EACH PO (16:48)
[2018-11-07 17:11] VITALS: BP 136/66
[2018-11-07 17:23] VITALS: BP 127/64
--- NOTE | 2018-11-07 17:53 | NUR ---
PT FOR DISCHARGE/TRANSFER TO REHAB. PT REPORT GIVEN TO HUONG LUNDBERG. PT AOX4, SBA WITH WALKER, VS ARE STABLE, IV REMOVED, MEDS GIVEN PER MAR. ASSESSMENT CHARTED. COLOSTOMY EMPTIED, DRAINING FINE LAST BM TODAY. OPEN PRESSURE SORE AT COCCYX NOTED.WOUND PICTURE TAKEN AND FILE. COUGHING, WHEEZES, CRACKLES NOTED. DISCHARGE PLANNING DISCUSS. WILL CONTINUE TO MONITOR.
== END 2018-11-07 18:06 | DRG 189 ==
LOC: M.ERS 14:19 → M.TBA-ER 15:20 → M.2W 15:20
PROVIDERS: Family Medicine; Internal Medicine; Surgery; ADMIT Internal Medicine
DX: J96.00 Acute respiratory failure, unspecified whether with hypoxia or hypercapnia (principal); J44.1 Chronic obstructive pulmonary disease with (acute) exacerbation; E87.2 Acidosis; I25.110 Atherosclerotic heart disease of native coronary artery with unstable angina pectoris; G25.81 Restless legs syndrome; I10 Essential (primary) hypertension; E11.9 Type 2 diabetes mellitus without complications; E86.0 Dehydration; F17.210 Nicotine dependence, cigarettes, uncomplicated; D64.9 Anemia, unspecified; L89.159 Pressure ulcer of sacral region, unspecified stage; Z87.81 Personal history of (healed) traumatic fracture; Z93.3 Colostomy status; Z95.5 Presence of coronary angioplasty implant and graft; Z86.74 Personal history of sudden cardiac arrest; Z90.49 Acquired absence of other specified parts of digestive tract; Z90.710 Acquired absence of both cervix and uterus; Z79.02 Long term (current) use of antithrombotics/antiplatelets; Z79.84 Long term (current) use of oral hypoglycemic drugs; Z79.82 Long term (current) use of aspirin; Z79.899 Other long term (current) drug therapy; Z80.8 Family history of malignant neoplasm of other organs or systems

== ENCOUNTER 2018-11-07 16:16 | Inpatient (IN) | payer MEDICAID ==
[~2018-11-07] VITALS: Ht 172.7 cm; Wt 72.6 kg
[~2018-11-07 16:16] MED LIST changes: +AMBIEN 5 MG TABL5 M1 PO; +CARDIZEM CD120 MG PO; +CARVEDILOL3.125 MG PO; +CELEXA20 MG PO; +COZAAR 25 MG TA25 M1 PO; +DOK100 MG PO; +HYDROXYZINE HCL25 M1 PO; +IBUPROFEN 800800 M1 PO; +IPRAT-ALBUT 0.5-3 ML INH; +LIDOCAINE PAIN1 EACH TOP; +MUCINEX600 MG PO; +NICOTINE TRANSD14 M1 TRANSDERM; +SPIRONOLACTONE25 M1 PO; +TRADJENTA5 MG
[2018-11-07] MEDS ORDERED: NORCO 5-325 TA1 EACH PO (16:48)
[2018-11-07 18:52] VITALS: BP 134/67
--- NOTE | 2018-11-07 18:59 | NUR ---
PATIENT ADMITTED TO REHAB FOR CONT. PT/OT/ST, AND CONT. WOUND CARE FOR OSTOMY CARE. THERE WAS A HEALING STAGE II APPROX 2 CM BY .5CM. DRY AND INTACT, DRSG APPLIED. VSS. NO COMPLAINTS. LIVES IN INDEPENDENT LIVING BY HERSELF
[2018-11-07 20:22] VITALS: BP 164/75
[2018-11-08 03:57] LABS: HEMATOCRIT 32.1 % (37.0-47.0); HEMOGLOBIN 10.2 gm/dL (12.0-15.0); MCH 27.4 pg (26.0-34.0); MCHC 31.8 g/dL (28.0-37.0); RBC 3.73 mil/uL (4.20-5.00); RDW-CV 25.3 % (10.5-14.5); WBC 11.4 thou/uL (4.0-11.0)
[2018-11-08 04:07] LABS: CALCIUM 7.9 mg/dL (8.5-10.1); CREATININE 0.7 mg/dL (0.6-1.3); POTASSIUM 3.8 mmol/L (3.5-5.1)
--- NOTE | 2018-11-08 05:26 | NUR ---
ASSUMED PT CARE AT 1930. PT ALERT AND ORIENTED X4, POLITE AND COOPERATIVE WITH CARES. PT ADMITTED FROM TELEMETRY SHORTLY BEFORE SHIFT CHANGE. PT HAS FRACTURED RIBS, COLON RESECTION, COLOSTOMY AND MIDLINE STERISTRIPS. ARRIVED WITH VARIOUS BRUISES AND WOUND ON COCCYX. PT EMPTIES HER OWN COLOSTOMY BAG. ANTICIPATING WOUND CARE CONSULT TO LEARN HOW TO CHANGE BAG. PT UP TO VOID NUMEROUS TIMES OVERNIGHT WITH MIN ASSIST, GAIT BELT AND WALKER. SCHEDULED RT TX. ON ROOM AIR. PRN HYDROCODONE TWICE THIS SHIFT FOR STERNAL PAIN. PT TAKES PILLS WHOLE WITH WATER WITHOUT DIFFICULTY. BED ALARM ON FOR SAFETY. USES CALL LIGHT APPROPRIATELY. HOURLY ROUNDING IN PROGRESS, WILL CONTINUE TO MONITOR.
[2018-11-08 07:30] VITALS: BP 151/67
--- NOTE | 2018-11-08 12:59 | NUR ---
Nutrition: Pt was admitted to Rehab. She had been admitted to ICU, intubated, then extubated and progressed well. New colostomy, DM, HTN, CAD. Wt: 160#. Regular diet, tolerating well. +BM today. Alb 2.2, prealb 19.7. Pt was busy with therapies at time of visit, 11:04. Hopeful for continued good po intake. Will follow weekly on rehab. Low nutrition risk.
--- NOTE | 2018-11-08 15:54 | NUR ---
SW met with pt to complete initial assessment, introduce self, and SW role on inpt rehab. Pt alert, oriented. Pt lives at home alone in [place] [address]. Pt was independent with ADLs prior to hospitalization. Pt lives with dtr and son in law who are supportive. Pt has an estranged relationship with pt son according to previous record. Pt has homemaker services. Pt is current with [facility] services. Pt has a RW through [employer].
--- NOTE | 2018-11-08 17:14 | NUR ---
WOUND CARE NOTE: ASSESSMENT FOR PRESSURE ULCER TO COCCYX PATIENT PRESENTS WITH A STAGE 2 PRESSURE ULCER TO HER COCCYX. WOUND MEASURES 2.3X2X0.1. PINK, MOIST WOUND BED. ANTWAN-WOUND HEALING. CLEANSED WITH WOUND CLEANSER, PATTED DRY. APPLIED AQUACEL AG TO WOUND BED AND SECURED WITH BORDERED FOAM. PATIENT TOLERATED DRESSING CHANGE WELL. EDUCATED PATIENT ON KEEPING OFF AREA TO PROMOTE HEALING, COMMUNICATED UNDERSTANDING. RECOMMEND TURN Q2 HOURS-KEEP OFF WOUND WAFFLE CUSHION WHEN IN CHAIR ENCOURAGE GOOD NUTRTION/HYDRATION FOR WOUND HEALING.
[2018-11-08 19:30] VITALS: BP 138/74
--- NOTE | 2018-11-08 22:14 | NUR ---
INITAL ASSESMENT COMPLETED AT 1930. PT RESTING IN BED AT THAT TIME VISITING WITH HER SON. PT DENIED PAIN OR DISCOMFORT. PT ASSISTED TO BATHROOM WITH GAIT BELT AND WALKER. PT'S GAIT STEAY AND PURPOSEFULL. PT ABLE TO STAND UP INDEPENDENTLY. HS MEDS AND CARES DONE PER EMAR. CALL LIGHT IN REACH, PT USING APPROPRIATELY.
[2018-11-09 07:30] VITALS: BP 138/66
--- NOTE | 2018-11-09 18:19 | NUR ---
PATIENT ALERT AND ORIENTED X 4, PAIN MEDS NEEDED. PATIENT IS REFUSING TO GO TO MAIN DINNING AREA. WILL NOTIFY DR MILLAN ON ROUNDS TOMORROW. CONT. PT/OT/ST NO FURTHER COMPLAINTS. CONT. WITH CURRENT PLAN OF CARE AT THIS TIME.
[2018-11-09 20:00] VITALS: BP 136/78
[2018-11-10 04:03] VITALS: BP 133/65
[2018-11-10 04:20] VITALS: BP 131/56
--- NOTE | 2018-11-10 04:29 | NUR ---
AT 0350 PT RANG CALL LIGHT AND REPORTED SQUEEZING CHEST PAIN RATES AT 10. PT PALE AND CLAMMY. STAT 12 LEAD EKG DONE. STAT BLOOD WORK DRAWN. DR GOETZ NOTIFIED OF EVENTS. RECIEVED ORDERS TO DISCHARGE PT FROM REHAB AND ADMIT TO HOSPITAL FOR CHEST PAIN. STAT PCXR DONE. 22 GUAGE SALINE LOCK STARTED IN RIGHT WRIST.
--- NOTE | 2018-11-10 04:39 | NUR ---
DR MILLAN NOTIFIED OF EVENTS AND NEED TO PLACE PT ON TELEMETRY FLOOR. PT INFORMED OF TRANSFER. PT REPORTS RELIEF OF SQUEEZING CHEST PAIN AFTER RECIEVING 1 NITRO. REPORT GIVEN TO VIKTORIYA LUNDBERG. PT BEING TRANSFERED TO ROOM 202.
[2018-11-10 05:32] LABS: ANION GAP 9 mmol/L (7-16); BUN 15 mg/dL (7-18); CALCIUM 8.2 mg/dL (8.5-10.1); CHLORIDE 104 mmol/L (98-107); CO2 25 mmol/L (21-32); CREATININE 0.8 mg/dL (0.6-1.3); GLUCOSE 201 mg/dL (70-99); MAGNESIUM 1.6 mg/dL (1.8-2.4); POTASSIUM 4.2 mmol/L (3.5-5.1); SODIUM 138 mmol/L (136-145); TROPONIN-I LEVEL <0.06 ng/mL (<0.06)
[2018-11-11] MEDS ORDERED: SPIRONOLACTONE25 M1 PO (10:04)
[2018-11-11] MEDS ORDERED: NORCO 5-325 TA1 EACH PO (10:04)
[2018-11-11] MEDS ORDERED: CARVEDILOL3.125 MG PO (10:04)
[2018-11-11] MEDS ORDERED: IPRAT-ALBUT 0.5-3 ML INH (10:04)
[2018-11-11] MEDS ORDERED: NITROGLYCERIN0.4 MG SUBLING (10:04)
[2018-11-11] MEDS ORDERED: LISINOPRIL5 MG PO (10:04)
[2018-11-11] MEDS ORDERED: CARDIZEM CD120 MG PO (10:04)
[2018-11-11] MEDS ORDERED: PREDNISONE 10 M10 MG PO (10:04)
[2018-11-11] MEDS ORDERED: CELEXA20 MG PO (10:04)
[2018-11-11] MEDS ORDERED: FLEXERIL PO (10:04)
[2018-11-11] MEDS ORDERED: glucometer (11:18)
[2018-11-11] MEDS ORDERED: 1ST TIER UNILE1 EAC1 SUBQ (11:18)
[2018-11-11] MEDS ORDERED: TEST STRIPS1 EACH SUBQ (11:18)
== END 2018-11-10 04:44 | disposition short-term general hospital (02) | DRG 190 ==
LOC: M.REH 16:16
PROVIDERS: Family Medicine; ADMIT Physical Medicine & Rehabilitation
DX: J44.1 Chronic obstructive pulmonary disease with (acute) exacerbation (principal); I46.9 Cardiac arrest, cause unspecified; S22.49XA Multiple fractures of ribs, unspecified side, initial encounter for closed fracture; K57.20 Diverticulitis of large intestine with perforation and abscess without bleeding; E87.2 Acidosis; Z60.2 Problems related to living alone; E11.9 Type 2 diabetes mellitus without complications; I10 Essential (primary) hypertension; E86.0 Dehydration; D72.829 Elevated white blood cell count, unspecified; I25.10 Atherosclerotic heart disease of native coronary artery without angina pectoris; L89.159 Pressure ulcer of sacral region, unspecified stage; X58.XXXA Exposure to other specified factors, initial encounter; Z93.3 Colostomy status; Z80.8 Family history of malignant neoplasm of other organs or systems; Y92.89 Other specified places as the place of occurrence of the external cause; Y99.8 Other external cause status; Y93.89 Activity, other specified

== ENCOUNTER 2018-11-10 05:07 | Observation (INO) | payer MEDICAID ==
[~2018-11-10] VITALS: Ht 172.7 cm; Wt 74.4 kg
[2018-11-10 05:15] VITALS: BP 130/62
--- NOTE | 2018-11-10 06:28 | NUR ---
TRANSFER FROM REHAB AND GOT REPORT AND ASSUMED CARE AT 0515. LIMOUSINE RENTAL CLERK IN PLACE. VITAL SIGNS STABLE. PT UP WITH STANDBY. SHE HAS STERNUM PAIN AND PRN PAIN MEDS GIVEN IN REHAB BEFORE TRANSFER. ASSESSMENT COMPLETED DISCUSSED PLAN OF CARE AND PT UNDERSTANDS. BED LOCKED AND CALL LIGHT WITHIN REACH. FALL PRECAUTIONS IN PLACE. HOURLY ROUNDING DONE AND ALL NEEDS MET. NURSING WILL CONTINUE TO MONITOR.
[2018-11-10 08:00] VITALS: BP 113/69
[2018-11-10 11:45] VITALS: BP 137/74
--- NOTE | 2018-11-10 13:54 | EKG ---
[place] [address] ELECTROCARDIOGRAM REPORT Name: RUY CANDELARIA Room: [address] ADM IN M.R.#: [id number] Admission: 11/10/18 Attend Phys: Porter Richey, Discharge: Date of : 55 Report #: [id number] THIS REPORT FOR: //name// [facility] Test Date: 2018-11-10 Test Time: 03:54:26 Pat Name: RUY CANDELARIA Department: Room: [address] Gender: F Load Haul Dump Operator: ROMARIO : 1955 Requested By: Porter Richey Order Number: [id number] Davon MD: Cuco May Measurements Intervals [place] Rate: 83 P: 76 MA: 148 QRS: 4 QRSD: 78 T: 73 QT: 359 QTc: 422 Interpretive Statements Sinus rhythm Compared to ECG 11/03/2018 14:34:00 artifact no longer noted Electronically Signed On 11-10-2018 13:54:20 CDT by Cuco May [email or web address] <ELECTRONICALLY SIGNED> By: Cuco May MD, [facility] 11/10/18 1354 D: [id number] 3 Cuco May MD, [facility] /EPI
--- NOTE | 2018-11-10 14:40 | NUR ---
PT A/O. TELE TRACKING NSR AND ALL VSS ON ROOM AIR. C/O REPRODUCIBLE STERNAL AND RIB PAIN IN WHICH SHE STATES HAS BEEN ON GOING FOR OVER A MONTH (CPR). DENIES SOA. PRODUCTIVE COUGH WITH YELLOW TO CLEAR SPUTUM. EDUCATED ON SAFETY AND PLAN OF CARE. PLEASE SEE ASSESSMENT FOR ADDITIONAL INFORMATION. WILL CONTINUE TO MONITOR
[2018-11-10 15:08] LABS: ABSOLUTE EOSINOPHILS 0.3 thou/uL (0.0-0.7); ABSOLUTE LYMPHOCYTES 1.4 thou/uL (0.8-5.3); ABSOLUTE MONOCYTES 0.6 thou/uL (0.0-1.2); ABSOLUTE NEUTROPHILS 7.2 thou/uL (1.6-8.1); BASOPHILS 0.2 %; EOSINOPHILS 3.3 %; HEMATOCRIT 37.6 % (37.0-47.0); HEMOGLOBIN 11.9 gm/dL (12.0-15.0); MCH 27.2 pg (26.0-34.0); MCHC 31.7 g/dL (28.0-37.0); MCV 85.9 fL (80.0-100.0); MONOCYTES 5.8 %; MPV 8.4 fl. (7.2-11.1); NUCLEATED RBCS 0 /100WBC; PLATELET COUNT* 232 thou/uL (150-400); POLYS 75.7 %; RBC 4.38 mil/uL (4.20-5.00); RDW-CV 25.9 % (10.5-14.5); WBC 9.6 thou/uL (4.0-11.0)
[2018-11-10 16:45] VITALS: BP 107/67
[2018-11-10 17:46] LABS: ANISOCYTOSIS 3+
[2018-11-10 17:47] LABS: OVALOCYTES Occasional; PLATELET ESTIMATE ADEQUATE; TEARDROPS Occasional
[2018-11-10 20:00] VITALS: BP 112/65
[2018-11-11] VITALS: BP 126/50
--- NOTE | 2018-11-11 03:35 | NUR ---
PT ALERT ORIENTED. UP AD AMPARO IN ROOM. TELEMETRY SHOWS SR. TAKING HYDROCODONE FOR PAIN. ON RA. VSS.
[2018-11-11 04:40] LABS: HEMATOCRIT 39.3 % (37.0-47.0); HEMOGLOBIN 12.3 gm/dL (12.0-15.0); MCH 27.1 pg (26.0-34.0); MCHC 31.3 g/dL (28.0-37.0); MCV 86.6 fL (80.0-100.0); MPV 8.1 fl. (7.2-11.1); RBC 4.53 mil/uL (4.20-5.00); RDW-CV 26.5 % (10.5-14.5); WBC 10.7 thou/uL (4.0-11.0)
[2018-11-11 04:55] LABS: ALBUMIN 2.7 g/dL (3.4-5.0); CALCIUM 8.6 mg/dL (8.5-10.1); CREATININE 0.7 mg/dL (0.6-1.3); MAGNESIUM 2.1 mg/dL (1.8-2.4); POTASSIUM 4.9 mmol/L (3.5-5.1); TOTAL BILIRUBIN 0.4 mg/dL (<0.1-1.0); TOTAL PROTEIN 5.8 g/dL (6.4-8.2)
[2018-11-11 07:57] VITALS: BP 165/69
[2018-11-11] MEDS ORDERED: IPRAT-ALBUT 0.5-3 ML INH (10:04)
[2018-11-11] MEDS ORDERED: NORCO 5-325 TA1 EACH PO (10:04)
[2018-11-11] MEDS ORDERED: PREDNISONE 10 M10 MG PO (10:04)
[2018-11-11] MEDS ORDERED: CARVEDILOL3.125 MG PO (10:04)
[2018-11-11] MEDS ORDERED: SPIRONOLACTONE25 M1 PO (10:04)
[2018-11-11] MEDS ORDERED: NITROGLYCERIN0.4 MG SUBLING (10:04)
[2018-11-11] MEDS ORDERED: LISINOPRIL5 MG PO (10:04)
[2018-11-11] MEDS ORDERED: FLEXERIL PO (10:04)
[2018-11-11] MEDS ORDERED: CELEXA20 MG PO (10:04)
[2018-11-11] MEDS ORDERED: CARDIZEM CD120 MG PO (10:04)
[2018-11-11 10:33] VITALS: BP 165/69
--- NOTE | 2018-11-11 10:34 | NUR ---
Pt admitted yesterday from acute rehab. Plan dc to home today with [facility] for nursing only. Updated Pt, Pt in agreement with POC. Family will transport.
[2018-11-11 10:44] VITALS: BP 165/69
[2018-11-11] MEDS ORDERED: 1ST TIER UNILE1 EAC1 SUBQ (11:18)
[2018-11-11] MEDS ORDERED: glucometer (11:18)
[2018-11-11] MEDS ORDERED: TEST STRIPS1 EACH SUBQ (11:18)
--- NOTE | 2018-11-11 13:58 | NUR ---
PT ORDERS RECEIVED FOR EVALUATION AND TREATMENT ON 11/10/18. PT DISCHARGED PRIOR TO COMPLETION OF PT EVALUATION.
--- NOTE | 2018-11-12 15:04 | NUR ---
CM received a call, informing that Pt's insurance would not cover the Ambien that Pt was discharged with. EDMUND contacted [facility] pharmacy and was told that they do not have the prescription, per Pt she does not have it at home either. EDMUND contacted Dr, he informed that he is not able to refill a lost narcotic prescription and stated that Pt will need to contact her PCP, CM contacted Pt and updated her.
== END 2018-11-11 11:49 | disposition home or self-care (01) ==
LOC: M.2W 05:07
PROVIDERS: ADMIT Family Medicine
DX: I46.9 Cardiac arrest, cause unspecified (principal); D64.9 Anemia, unspecified; D62 Acute posthemorrhagic anemia; E87.4 Mixed disorder of acid-base balance; J96.00 Acute respiratory failure, unspecified whether with hypoxia or hypercapnia; K57.92 Diverticulitis of intestine, part unspecified, without perforation or abscess without bleeding; R65.21 Severe sepsis with septic shock; I25.119 Atherosclerotic heart disease of native coronary artery with unspecified angina pectoris; J44.9 Chronic obstructive pulmonary disease, unspecified; E11.65 Type 2 diabetes mellitus with hyperglycemia; I12.9 Hypertensive chronic kidney disease with stage 1 through stage 4 chronic kidney disease, or unspecified chronic kidney disease; E11.22 Type 2 diabetes mellitus with diabetic chronic kidney disease; N18.9 Chronic kidney disease, unspecified; E87.6 Hypokalemia; R79.89 Other specified abnormal findings of blood chemistry; E43 Unspecified severe protein-calorie malnutrition; E66.01 Morbid (severe) obesity due to excess calories; D50.9 Iron deficiency anemia, unspecified; E83.51 Hypocalcemia; B95.62 Methicillin resistant Staphylococcus aureus infection as the cause of diseases classified elsewhere; J98.11 Atelectasis; N17.0 Acute kidney failure with tubular necrosis; F17.200 Nicotine dependence, unspecified, uncomplicated; Z93.3 Colostomy status; Z79.899 Other long term (current) drug therapy

== ENCOUNTER 2018-11-24 15:16 | Inpatient (IN) | payer MEDICAID ==
[~2018-11-24] VITALS: Ht 167.6 cm; Wt 70.3 kg
[~2018-11-24 15:16] MED LIST changes: +1ST TIER UNILE1 EAC1 SUBQ; +TEST STRIPS1 EACH SUBQ; +glucometer
[2018-11-24 15:20] VITALS: BP 99/54
[2018-11-24 15:50] LABS: URINE BILIRUBIN NEGATIVE (Negative); URINE BLOOD NEGATIVE (Negative); URINE CLARITY SL CLOUDY; URINE COLOR YELLOW; URINE GLUCOSE-RANDOM NEGATIVE (Negative); URINE KETONES NEGATIVE (Negative); URINE NITRITE-REFLEX NEGATIVE (Negative); URINE PROTEIN TRACE (Negative)
[2018-11-24 15:54] LABS: URINE LEUKOCYTES-REFLEX 2+ (Negative)
[2018-11-24 15:58] LABS: AMP/METHAMP Negative (Negative); BARBITURATES Negative (Negative); BENZODIAZEPINES POSITIVE (Negative); COCAINE Negative (Negative); METHADONE Negative (Negative); OPIATES POSITIVE (Negative); PCP Negative (Negative); THC POSITIVE (Negative)
[2018-11-24 16:03] LABS: SQUAMOUS 0-3 Few /LPF (0-3); URINE WBC-REFLEX 6-15 Few /HPF (0-5); WBC CLUMPS Few (None Seen)
[2018-11-24 16:04] LABS: BACTERIA-REFLEX >30 Many /HPF (None Seen); CRYSTALS None Seen /LPF (None Seen); HYALINE CASTS 0-3 Few /LPF (None Seen); MUCUS None Seen strn/LPF (None Seen); URINE RBC 0-2 Rare /HPF (0-2)
[2018-11-24 16:06] LABS: HEMATOCRIT 39.5 % (37.0-47.0); HEMOGLOBIN 12.5 gm/dL (12.0-15.0); MCH 27.1 pg (26.0-34.0); MCHC 31.6 g/dL (28.0-37.0); MCV 85.7 fL (80.0-100.0); MPV 7.8 fl. (7.2-11.1); NUCLEATED RBCS 0 /100WBC; PLATELET COUNT* 327 thou/uL (150-400); RBC 4.61 mil/uL (4.20-5.00); RDW-CV 22.3 % (10.5-14.5); WBC 8.9 thou/uL (4.0-11.0)
[2018-11-24 16:20] LABS: PROTIME 9.8 Seconds (9.20-11.50)
[2018-11-24 16:22] LABS: ALBUMIN 2.7 g/dL (3.4-5.0); ALKALINE PHOSPHATASE 154 U/L (46-116); ANION GAP 12 mmol/L (7-16); BUN 19 mg/dL (7-18); CALCIUM 8.9 mg/dL (8.5-10.1); CHLORIDE 100 mmol/L (98-107); CO2 25 mmol/L (21-32); CREATININE 1.1 mg/dL (0.6-1.3); GLUCOSE 170 mg/dL (70-99); NT-PRO BRAIN NAT PEPTIDE 169 pg/mL (<300); POTASSIUM 4.3 mmol/L (3.5-5.1); SGOT 23 U/L (15-37); SGPT 17 U/L (30-65); SODIUM 137 mmol/L (136-145); TOTAL BILIRUBIN 0.5 mg/dL (<0.1-1.0); TOTAL PROTEIN 6.7 g/dL (6.4-8.2); TROPONIN-I LEVEL <0.06 ng/mL (<0.06)
[2018-11-24 16:29] LABS: ACETAMINOPHEN 6 ug/mL (10-30); ALCOHOL < 10 mg/dL (<10); SALICYLATE < 2.8 mg/dL (2.8-20.0)
[2018-11-24 16:35] LABS: ABSOLUTE MONOCYTES 0.5 thou/uL (0.0-1.2); ABSOLUTE NEUTROPHILS 7.4 thou/uL (1.6-8.1); ANISOCYTOSIS 2+; METAMYELOCYTES 1 %; PLATELET ESTIMATE ADEQUATE
[2018-11-24 16:56] LABS: BE -6.1 mmol/L (-2 to +3); PCO2 44.6 mmHg (35.0-45.0); PO2 78.6 mmHg (75.0-100.0)
[2018-11-24 16:58] LABS: pH 7.279 (7.340-7.450)
[2018-11-24 18:18] LABS: BE -9.3 mmol/L (-2 to +3); PCO2 40.7 mmHg (35.0-45.0); PO2 61.9 mmHg (75.0-100.0)
[2018-11-24 18:21] LABS: pH 7.248 (7.340-7.450)
[2018-11-24 20:59] VITALS: BP 107/55
[2018-11-24 21:15] VITALS: BP 123/56
[2018-11-24 23:18] VITALS: BP 119/53
[2018-11-25] VITALS (50 sets, daily range): BP systolic 84–158; BP diastolic 35–89
[2018-11-25 06:32] LABS: BE -4.1 mmol/L (-2 to +3); PCO2 35.5 mmHg (35.0-45.0); PO2 106.8 mmHg (75.0-100.0); pH 7.379 (7.340-7.450)
[2018-11-25 07:27] LABS: HEMATOCRIT 28.3 % (37.0-47.0); MCH 27.2 pg (26.0-34.0); MCHC 31.7 g/dL (28.0-37.0); MCV 85.7 fL (80.0-100.0); RBC 3.3 mil/uL (4.20-5.00); RDW-CV 22.1 % (10.5-14.5); WBC 16.8 thou/uL (4.0-11.0)
[2018-11-25 07:40] LABS: ALBUMIN 1.9 g/dL (3.4-5.0); CALCIUM 7.5 mg/dL (8.5-10.1); CREATININE 0.6 mg/dL (0.6-1.3); POTASSIUM 3.7 mmol/L (3.5-5.1); TOTAL BILIRUBIN 0.2 mg/dL (<0.1-1.0); TOTAL PROTEIN 4.9 g/dL (6.4-8.2)
[2018-11-25 12:19] LABS: PCO2 41.2 mmHg (35.0-45.0); PO2 92.9 mmHg (75.0-100.0); pH 7.336 (7.340-7.450)
--- NOTE | 2018-11-25 13:09 | EKG ---
[place] [address] ELECTROCARDIOGRAM REPORT Name: RUY CANDELARIA Room: [address] ADM IN M.R.#: [id number] Admission: 11/24/18 Attend Phys: Uma Mccollum Discharge: Date of : 55 Report #: [id number] THIS REPORT FOR: //name// [facility] ED Test Date: 2018-11-24 Test Time: 15:18:57 Pat Name: RUY CANDELARIA Department: Room: [facility] Gender: F Test And Research Reactor Operator: Yazan PEREZ : 1955 Requested By: Jennifer Mars Order Number: [id number] MD: Cuco May Measurements Intervals [place] Rate: 106 P: 66 ME: 142 QRS: -51 QRSD: 77 T: 79 QT: 305 QTc: 405 Interpretive Statements Sinus tachycardia Inferior infarct, old Compared to ECG 11/10/2018 03:54:26 Sinus rhythm no longer present Electronically Signed On 11-25-2018 13:09:06 CDT by Cuco May [email or web address] <ELECTRONICALLY SIGNED> By: Cuco May MD, FAC 11/25/18 1309 1518 1518 Cuco May MD, [facility] /EPI
[2018-11-26] VITALS (35 sets, daily range): BP systolic 100–185; BP diastolic 44–93
[2018-11-26 05:27] LABS: HEMATOCRIT 24.2 % (37.0-47.0); HEMOGLOBIN 7.7 gm/dL (12.0-15.0); MCHC 31.7 g/dL (28.0-37.0); MCV 85.1 fL (80.0-100.0); MPV 8.2 fl. (7.2-11.1); RBC 2.84 mil/uL (4.20-5.00); RDW-CV 22.4 % (10.5-14.5); WBC 13.5 thou/uL (4.0-11.0)
[2018-11-26 05:39] LABS: CALCIUM 7.9 mg/dL (8.5-10.1); CREATININE 0.7 mg/dL (0.6-1.3); POTASSIUM 3.3 mmol/L (3.5-5.1)
[2018-11-26 18:43] LABS: MAGNESIUM 1.9 mg/dL (1.8-2.4); POTASSIUM 3.4 mmol/L (3.5-5.1)
[2018-11-27] VITALS (13 sets, daily range): BP systolic 113–150; BP diastolic 51–104
[2018-11-27 04:27] LABS: HEMATOCRIT 27.9 % (37.0-47.0); HEMOGLOBIN 8.8 gm/dL (12.0-15.0); MCH 26.8 pg (26.0-34.0); MCHC 31.7 g/dL (28.0-37.0); MCV 84.7 fL (80.0-100.0); MPV 7.7 fl. (7.2-11.1); NUCLEATED RBCS 0 /100WBC; PLATELET COUNT* 326 thou/uL (150-400); RDW-CV 21.8 % (10.5-14.5); WBC 10.6 thou/uL (4.0-11.0)
[2018-11-27 04:41] LABS: HEMATOCRIT 27.7 % (37.0-47.0); HEMOGLOBIN 8.9 gm/dL (12.0-15.0); MCH 27.1 pg (26.0-34.0); MCV 84.5 fL (80.0-100.0); MPV 7.7 fl. (7.2-11.1); RBC 3.28 mil/uL (4.20-5.00); RDW-CV 22.2 % (10.5-14.5); WBC 10.4 thou/uL (4.0-11.0)
[2018-11-27 04:53] LABS: ALKALINE PHOSPHATASE 97 U/L (46-116); ANION GAP 10 mmol/L (7-16); BUN 13 mg/dL (7-18); CALCIUM 7.6 mg/dL (8.5-10.1); CHLORIDE 105 mmol/L (98-107); CO2 26 mmol/L (21-32); CREATININE 0.7 mg/dL (0.6-1.3); GLUCOSE 211 mg/dL (70-99); SGOT 16 U/L (15-37); SGPT 16 U/L (30-65); SODIUM 141 mmol/L (136-145); TOTAL BILIRUBIN 0.3 mg/dL (<0.1-1.0); TOTAL PROTEIN 5.1 g/dL (6.4-8.2); TROPONIN-I LEVEL <0.06 ng/mL (<0.06)
[2018-11-27 06:08] LABS: POTASSIUM 2.2 mmol/L (3.5-5.1)
[2018-11-27 08:25] LABS: ABSOLUTE LYMPHOCYTES 0.8 thou/uL (0.8-5.3); ABSOLUTE MONOCYTES 0.5 thou/uL (0.0-1.2); ABSOLUTE NEUTROPHILS 9.2 thou/uL (1.6-8.1); PLATELET ESTIMATE ADEQUATE
[2018-11-27 08:26] LABS: HYPOCHROMASIA 2+; POLYCHROMASIA 1+; SCHISTOCYTES 1+
[2018-11-27 08:27] LABS: BURR CELLS 1+
[2018-11-27 08:29] LABS: TEARDROPS 1+
[2018-11-27 08:30] LABS: ANISOCYTOSIS 2+; OVALOCYTES Occasional; POIKILOCYTOSIS 1+
--- NOTE | 2018-11-27 13:09 | CON ---
[address] [address] CONSULTATION Name: RUY CANDELARIA Room: [address] IN M.R.#: [id number] Admission: 11/24/18 Attend Phys: Uma Mccollum Discharge: Date of : 55 Report #: [id number] THIS REPORT FOR: //name// CC: DARIUS physician/PCP Manuel Gunn DATE OF SERVICE: 11/25/2018 REASON FOR EVALUATION: Acute respiratory failure, altered mental status. HISTORY OF PRESENT ILLNESS: The patient is a 63-year-old woman who was admitted through the Emergency Room with altered mental status. Unfortunately, she had an accidental overdose, she is taking Sonata, hydrocodone. Her tox screen was positive per staff for opiates and alcohol. The patient became obtunded and was intubated for airway protection, was not able to have conversation, had encephalopathy and was intubated. Today, on my exam, awake, alert and following commands. The patient was recently hospitalized earlier in November, which I have reviewed, was hospitalized for chest pain, treated for chest pain, was treated empirically for COPD exacerbation. At that time, workup, which included V/Q scan, was negative for pulmonary embolism. Had a chest x-ray with infiltrate. At this time, she had a chest CTA, which I have reviewed as well, showed emphysema, showed no evidence of pulmonary embolism; however, showed basilar pulmonary infiltrate and consolidation. Currently, the patient is intubated, not able to obtain further history. PAST MEDICAL HISTORY: Had previous history of COPD and rib fracture. MEDICATIONS AT HOME: Reviewed as well, noted. PAST MEDICAL HISTORY: Diabetes, hypertension, COPD. PAST SURGICAL HISTORY: Colostomy. FAMILY HISTORY: Mother with cancer. SOCIAL HISTORY: Unfortunately, her tox screen was positive as above. She is a former smoker. She quit less than a year and currently abusing alcohol. REVIEW OF SYSTEMS: Not obtainable; however, had a previous history of chest pain with recent hospitalization, COPD, shortness of breath, was overdosed. Otherwise, unable to obtain. Discussed with staff of the patient, reviewed records. PHYSICAL EXAMINATION: [place] [address] CONSULTATION Name: RUY CANDELARIA Room: [address] IN [facility]#: [id number] Admission: 11/24/18 Attend Phys: Uma Mccollum Discharge: Date of : 55 Report #: [id number] NEUROLOGIC: Alert and oriented, following commands, wants the tube out. CHEST: Equal breath sounds. No wheezing. CARDIOVASCULAR: Regular rhythm. ABDOMEN: Soft, nontender. EXTREMITIES: No edema. Moving all extremities. VITAL SIGNS: Noted and include the following: Pulse 76, blood pressure is on the low side 89/48, pulse oximetry 97%. She has been afebrile. LABORATORY DATA: Arterial blood gas, pH 7.3, pCO2 of 35, pO2 of 106, This is on the current vent setting, she is on set rate of 16, FiO2 40% on AC mode, tidal volume 550, PEEP of 5. Initially when she first came in, had metabolic acidosis with respiratory acidosis as well. Her metabolic panel showed normal creatinine of 0.6. Hemoglobin A1c 6.8. Natriuretic peptide was 169. D-dimer was elevated. IMAGING: Chest x-ray, which I have reviewed today, showed no evidence of pulmonary embolism, bilateral lower lobe infiltrate and consolidation suggestive of aspiration. ASSESSMENT AND PLAN: 1. Acute respiratory failure. The patient has history of chronic obstructive pulmonary disease as confirmed by her CT scan, which showed significant emphysema. Also, has pneumonia, suspect related to aspiration with altered mental status, alcohol abuse. Currently, her D-dimer elevated, likely related to sepsis. Blood pressure on the low side, likely related to sepsis. The patient is awake, will try weaning trial. 2. Sepsis, severe, currently on antibiotics. With recent hospitalization, recommend to expand her antibiotic coverage to cover multidrug resistant, currently on cefepime. We will add vancomycin. 3. Altered mental status, more awake. We will discontinue Versed, do breathing trial today. We will obtain chest x-ray in the morning. The patient likely will need to have a swallowing evaluation, which we will order after extubation, especially with recurrent pneumonia. 4. Chronic obstructive pulmonary disease, currently on steroids 40 mg every 8 hours and bronchodilator treatment. Critical care time taking care of the patient was 76 minutes. <ELECTRONICALLY SIGNED> By: Jojo Jones MD 11/27/18 1309 1132 0012Akris Jones MD /nt
[2018-11-28] VITALS: BP 151/62
[2018-11-28 04:00] VITALS: BP 151/70
[2018-11-28 04:24] LABS: CALCIUM 7.6 mg/dL (8.5-10.1); CREATININE 0.7 mg/dL (0.6-1.3); MAGNESIUM 1.2 mg/dL (1.8-2.4); POTASSIUM 3.2 mmol/L (3.5-5.1)
[2018-11-28 08:17] VITALS: BP 132/67
--- NOTE | 2018-11-28 11:26 | CON ---
[address] [address] CONSULTATION Name: RUY CANDELARIA Room: [address] IN M.R.#: [id number] Admission: 11/24/18 Attend Phys: Uma Mccollum Discharge: Date of : 55 Report #: [id number] THIS REPORT FOR: //name// CC: DARIUS physician/PCP Manuel Gunn DATE OF SERVICE: 11/27/2018 INFECTIOUS DISEASE CONSULTATION ATTENDING PHYSICIAN: Dr. Gunn REASON FOR EVALUATION: Sepsis, pneumonitis. HISTORY OF PRESENT ILLNESS: Chart reviewed, patient examined. The patient is a 63-year-old woman with history of diabetes mellitus, some COPD, who was admitted through the Emergency Room with suspected accidental overdose of sleep medicines. Of note, she was hospitalized beginning in October of this year with severe illness, was diagnosed with perforated diverticulitis, complicated by fecal peritonitis. Did undergo diagnostic laparoscopy converted to exploratory laparotomy with sigmoid resection and Efrain's colostomy on 10/17/2018. This was a fairly extended recovery and did require additional time in the ICU. She was then transitioned eventually to rehab where she improved. She was discharged home earlier this month. Due to her altered mental status, did require ICU level care as well as intubation. She subsequently extubated. Clinically, she has improved over the course of the last 24-48 hours. Did have sputum, urine and blood cultures collected, the former two now have evidence of growth of gram-negative rods. She is empirically placed on antimicrobials including most recently cefepime and vancomycin. Denies significant amount of respiratory distress at this point. She has had occasional cough. Does admit to abdominal related complaints including gas pains. Her appetite is reasonable. She is mildly encephalopathic. ALLERGIES: None known. MEDICATIONS: Medicines include carvedilol, spironolactone, lisinopril, atorvastatin, vancomycin, gabapentin, folic acid, citalopram, nicotine patch, clopidogrel, aspirin, insulin, nitroglycerin, pantoprazole, tramadol, cefepime, p.r.n. analgesics and antiemetics. PAST MEDICAL HISTORY: As described above, history of diabetes mellitus, history of hypertension, COPD, anxiety disorder. She is status post colostomy. SOCIAL HISTORY: Former smoker, occasional ethanol. FAMILY HISTORY: [place] [address] CONSULTATION Name: TEAGANRUYSIMONA VICK Room: [address] IN [facility]#: [id number] Admission: 11/24/18 Attend Phys: Uma Mccollum Discharge: Date of : 55 Report #: [id number] REVIEW OF SYSTEMS: Otherwise unremarkable 10-point review of systems, otherwise as noted above in history of present illness. PHYSICAL EXAMINATION: GENERAL: She appears chronically ill, undernourished. She is alert, cooperative. She is in mild distress. She is sitting up in a chair, appears to be mildly encephalopathic. VITAL SIGNS: Temperature 97.7, pulse 100, respirations 27, blood pressure is 135/68. SKIN: Warm, dry, no rashes. HEENT: Normocephalic. Extraocular muscles intact. NECK: Supple. LUNGS: Diminished breath sounds and bibasilar crackles. HEART: Regular. Borderline tachycardic. I do not appreciate murmur. ABDOMEN: Soft, mildly distended. There is some tenderness. She has a colostomy in place. EXTREMITIES: Distal lower extremities: Superficial excoriations, eschars. Minimal amount of edema. GENITOURINARY: Deferred. RECTAL: Deferred. LABORATORY AND DIAGNOSTIC DATA: As described above, sputum culture with evidence of growth of gram-negative rods. Urine culture as well has greater than 10 to the 5th gram-negative rods. CBC: White count of 10.6, H and H 8.8 and 27.9, platelets 326. Electrolytes: Sodium 141, potassium 2.2, I think it is being corrected, chloride 105, bicarb is 26, anion gap of 10, BUN and creatinine 13 and 0.7, albumin of 2.0, total protein of 5.1. CBC: White count of 7.4 previously, did have a positive result for MRSA surveillance PCR. Chest x-ray improved aeration of the lung bases with some patchy medial bibasilar opacities. Blood cultures sterile thus far. Lactic acid 2.0. Most recent ABGs: PH 7.379, pCO2 of 35.5, pO2 106.8 and that was on the ventilator, FiO2 of 40. ASSESSMENT: Apparent accidental drug overdose felt to be complicated by aspiration pneumonitis with respiratory failure. She has subsequently been extubated now with growth of gram-negative rods associated with sputum culture. We will continue empiric antimicrobial therapy at this point. I would imagine we can transition fairly quickly to oral option. Continue to monitor expectantly. We will add incentive spirometry to her overall approach. At this point, I do not suggest there is any necessity of doing other diagnostic intervention, followup serial chest x-rays, but clinically she has improved, at [address] [address] CONSULTATION Name: RUY CANDELARIA Room: [facility] IN M.R.#: [id number] Admission: 11/24/18 Attend Phys: Uma Mccollum Discharge: Date of : 55 Report #: [id number] this point is not evident of any significant hypoxemia, will have to monitor expectantly. <ELECTRONICALLY SIGNED> By: Arias Mcclellan MD 11/28/18 1126 1536 [id number] Mcclellan MD /nt
[2018-11-28 13:09] VITALS: BP 132/67
[2018-11-28 13:15] VITALS: BP 141/75
[2018-11-28 13:17] VITALS: BP 141/75
[2018-11-28] MEDS ORDERED: CEFUROXIME500 MG PO (13:46)
[2018-11-28] MEDS ORDERED: PREDNISONE 10 M10 MG PO (13:47)
== END 2018-11-28 16:39 | disposition home health service (06) | DRG 871 ==
LOC: M.ERS 15:16 → M.TBA-ER 16:53 → M.ICU 16:53 → M.2W 16:53 → M.ICU 21:19 → M.2W 11-27 12:04
PROVIDERS: Family Medicine; Internal Medicine Pulmonary Disease; Nurse Practitioner Family; ADMIT Internal Medicine
PROC: 02HV33Z Insertion of Infusion Device into Superior Vena Cava, Percutaneous Approach (ICD-10-PCS; principal; 2018-11-24)
PROC: 0BH17EZ Insertion of Endotracheal Airway into Trachea, Via Natural or Artificial Opening (ICD-10-PCS; principal; 2018-11-24)
PROC: 5A1935Z Respiratory Ventilation, Less than 24 Consecutive Hours (ICD-10-PCS; principal; 2018-11-24)
DX: A41.9 Sepsis, unspecified organism (principal); J69.0 Pneumonitis due to inhalation of food and vomit; J96.01 Acute respiratory failure with hypoxia; J15.6 Pneumonia due to other Gram-negative bacteria; R65.21 Severe sepsis with septic shock; J44.1 Chronic obstructive pulmonary disease with (acute) exacerbation; E44.0 Moderate protein-calorie malnutrition; N39.0 Urinary tract infection, site not specified; T40.2X1A Poisoning by other opioids, accidental (unintentional), initial encounter; F41.9 Anxiety disorder, unspecified; T42.6X1A Poisoning by other antiepileptic and sedative-hypnotic drugs, accidental (unintentional), initial encounter; I25.10 Atherosclerotic heart disease of native coronary artery without angina pectoris; E78.5 Hyperlipidemia, unspecified; E11.51 Type 2 diabetes mellitus with diabetic peripheral angiopathy without gangrene; N18.2 Chronic kidney disease, stage 2 (mild); E11.65 Type 2 diabetes mellitus with hyperglycemia; T38.0X5A Adverse effect of glucocorticoids and synthetic analogues, initial encounter; D63.8 Anemia in other chronic diseases classified elsewhere; E11.22 Type 2 diabetes mellitus with diabetic chronic kidney disease; J45.909 Unspecified asthma, uncomplicated; E53.8 Deficiency of other specified B group vitamins; I12.9 Hypertensive chronic kidney disease with stage 1 through stage 4 chronic kidney disease, or unspecified chronic kidney disease; E87.6 Hypokalemia; B96.1 Klebsiella pneumoniae [K. pneumoniae] as the cause of diseases classified elsewhere; I95.9 Hypotension, unspecified; Y92.89 Other specified places as the place of occurrence of the external cause; Z79.82 Long term (current) use of aspirin; Z79.899 Other long term (current) drug therapy; Z93.3 Colostomy status; Z80.9 Family history of malignant neoplasm, unspecified; Z87.891 Personal history of nicotine dependence; Z68.25 Body mass index [BMI] 25.0-25.9, adult; Z95.5 Presence of coronary angioplasty implant and graft; Z90.711 Acquired absence of uterus with remaining cervical stump; Z90.49 Acquired absence of other specified parts of digestive tract

== ENCOUNTER 2018-12-24 20:27 | Inpatient (IN) | payer MEDICAID ==
[~2018-12-24] VITALS: Ht 172.7 cm; Wt 76.7 kg
[~2018-12-24 20:27] MED LIST changes: +CEFUROXIME500 MG PO
[2018-12-24 20:28] VITALS: BP 147/79
[2018-12-24 20:50] LABS: HEMATOCRIT 39.8 % (37.0-47.0); HEMOGLOBIN 12.2 gm/dL (12.0-15.0); MCH 26.3 pg (26.0-34.0); MCHC 30.6 g/dL (28.0-37.0); MCV 85.9 fL (80.0-100.0); MPV 8.3 fl. (7.2-11.1); NUCLEATED RBCS 0 /100WBC; PLATELET COUNT* 246 thou/uL (150-400); RBC 4.63 mil/uL (4.20-5.00); RDW-CV 19.5 % (10.5-14.5); WBC 12.9 thou/uL (4.0-11.0)
[2018-12-24 20:58] LABS: ANION GAP 13 mmol/L (7-16); BUN 15 mg/dL (7-18); CALCIUM 8.9 mg/dL (8.5-10.1); CHLORIDE 103 mmol/L (98-107); CO2 23 mmol/L (21-32); CREATININE 0.8 mg/dL (0.6-1.3); GLUCOSE 160 mg/dL (70-99); POTASSIUM 3.9 mmol/L (3.5-5.1); PROTIME 10.4 Seconds (9.20-11.50); SODIUM 139 mmol/L (136-145)
[2018-12-24 21:08] LABS: ALBUMIN 2.7 g/dL (3.4-5.0); ALKALINE PHOSPHATASE 107 U/L (46-116); LIPASE 32 U/L (73-393); NT-PRO BRAIN NAT PEPTIDE 246 pg/mL (<300); SGOT 19 U/L (15-37); SGPT 15 U/L (30-65); TOTAL BILIRUBIN 0.4 mg/dL (<0.1-1.0); TOTAL PROTEIN 6.7 g/dL (6.4-8.2); TROPONIN-I LEVEL <0.06 ng/mL (<0.06)
[2018-12-24 21:35] LABS: ABSOLUTE EOSINOPHILS 0.1 thou/uL (0.0-0.7); ABSOLUTE LYMPHOCYTES 2.2 thou/uL (0.8-5.3); ABSOLUTE MONOCYTES 0.3 thou/uL (0.0-1.2); ABSOLUTE NEUTROPHILS 10.3 thou/uL (1.6-8.1); PLATELET ESTIMATE ADEQUATE
[2018-12-24 21:39] LABS: BE -4.3 mmol/L (-2 to +3); PCO2 43.9 mmHg (35.0-45.0); pH 7.314 (7.340-7.450)
[2018-12-24 21:43] LABS: PO2 59.4 mmHg (75.0-100.0)
[2018-12-24 21:51] LABS: URINE BILIRUBIN NEGATIVE (Negative); URINE BLOOD NEGATIVE (Negative); URINE CLARITY CLEAR; URINE COLOR YELLOW; URINE GLUCOSE-RANDOM NEGATIVE (Negative); URINE KETONES NEGATIVE (Negative); URINE LEUKOCYTES-REFLEX 1+ (Negative); URINE PROTEIN 1+ (Negative); URINE SPECIFIC GRAVITY 1.015 (1.005-1.030); URINE UROBILINOGEN 0.2 E.U./dl (0.2-1.0)
[2018-12-24 21:53] LABS: URINE NITRITE-REFLEX POSITIVE (Negative)
[2018-12-24 21:56] LABS: BACTERIA-REFLEX >30 Many /HPF (None Seen); CASTS None Seen /LPF (None Seen); CRYSTALS None Seen /LPF (None Seen); SQUAMOUS 0-3 Few /LPF (0-3); URINE RBC 0-2 Rare /HPF (0-2); URINE WBC-REFLEX >25 Many /HPF (0-5)
[2018-12-24 22:16] LABS: SALICYLATE < 2.8 mg/dL (2.8-20.0)
[2018-12-24 22:18] LABS: ACETAMINOPHEN < 2 ug/mL (10-30)
[2018-12-24 22:43] LABS: AMP/METHAMP Negative (Negative); BARBITURATES Negative (Negative); BENZODIAZEPINES POSITIVE (Negative); COCAINE Negative (Negative); METHADONE Negative (Negative); OPIATES Negative (Negative); PCP Negative (Negative); THC POSITIVE (Negative)
[2018-12-24 23:12] LABS: BE -7.8 mmol/L (-2 to +3)
[2018-12-24 23:20] LABS: PO2 198.9 mmHg (75.0-100.0); pH 7.247 (7.340-7.450)
[2018-12-25] VITALS (12 sets, daily range): BP systolic 90–159; BP diastolic 50–75
--- NOTE | 2018-12-25 02:15 | NUR ---
PT ADMITTED TO ROOM 005 FROM ED, NO FAMILY OR FRIENDS PRESENT ON ARRIVAL TO UNIT, ASSIT X4 FROM CART TO BED, A/OX1, FORGETFUL, DROWSY, EASILY REORIENTED TO PLACE, TIME, AND SITUATION. ORIENTED TO ROOM, CALL LIGHT, PHONE, NPO STATUS, SAFETY, AND POC. C/O BACK PAIN 10/10 ON NUMERICAL PAIN SCALE, REQUESTED PAIN MEDICATION, COMMUNICATED DUE TO PT BEING DROWSY AT PRESENT TIME, NEED FOR NARCAN ADMINISTRATION IN ED, AND NEW BIPAP NEEDS THIS ADMISSION, UNABLE TO GIVEN ANY TYPE OF SEDATIVE TYPE MEDICATIONS AT PRESENT TIME. 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
--- NOTE | 2018-12-25 05:44 | NUR ---
PROGRESSING TOWARDS GOALS, ADMISSION HX AND ADMISSION COMPLETE, RESTING QUIELTY WITH EYES CLOSED DURING NOC, EASILY AROUSABLE THIS AM TO VERBAL STIMULI, REMAINS ON BIPAP FIO2 40% WITH SAO2 100%, NS 100CC/HR PER INFUSION PUMP ORDERED, NO ADVERSE EFFECTS IV ABT'S NOTED, BOTTLE NITROGLYCERIN REMOVED FROM PT'S PURSE- WILL BE SENT TO PHARMACY PER PROTOCOL, MATCHES ALSO REMOVED FROM PT ROOM FOR SAFETY AND GIVEN TO SECURITY. COOPER PATENT DD CLOUDY YELLOW URINE, BED ALARM ON FOR SAFETY.
--- NOTE | 2018-12-25 06:06 | NUR ---
DR SCHMIDT CALLED REGARDING NEW SURGICAL CONSULT, UPDATED CT ABD/PELVIS RESULTS, AND PT STATUS INCLUDING IR CONSULT, SURGICAL MD TO SEE PT THIS AM.
[2018-12-25 08:05] LABS: HEMOGLOBIN 10.9 gm/dL (12.0-15.0); WBC 7.7 thou/uL (4.0-11.0)
[2018-12-25 08:07] LABS: HEMATOCRIT 35.3 % (37.0-47.0); MCH 26.3 pg (26.0-34.0); MCHC 30.7 g/dL (28.0-37.0); MCV 85.6 fL (80.0-100.0); MPV 8.1 fl. (7.2-11.1); NUCLEATED RBCS 0 /100WBC; PLATELET COUNT* 203 thou/uL (150-400); RBC 4.12 mil/uL (4.20-5.00); RDW-CV 19.2 % (10.5-14.5)
[2018-12-25 08:20] LABS: ALBUMIN 2.2 g/dL (3.4-5.0); CALCIUM 7.9 mg/dL (8.5-10.1); CREATININE 0.6 mg/dL (0.6-1.3); POTASSIUM 3.3 mmol/L (3.5-5.1); TOTAL BILIRUBIN 0.3 mg/dL (<0.1-1.0); TOTAL PROTEIN 5.6 g/dL (6.4-8.2)
[2018-12-25 08:22] LABS: BE -4.9 mmol/L (-2 to +3); PCO2 35.3 mmHg (35.0-45.0); PO2 73.1 mmHg (75.0-100.0); pH 7.366 (7.340-7.450)
[2018-12-25 09:11] LABS: ABSOLUTE LYMPHOCYTES 0.9 thou/uL (0.8-5.3); ABSOLUTE MONOCYTES 0.1 thou/uL (0.0-1.2); ABSOLUTE NEUTROPHILS 6.7 thou/uL (1.6-8.1); METAMYELOCYTES 3 %; PLATELET ESTIMATE ADEQUATE
--- NOTE | 2018-12-25 13:20 | EKG ---
[place] [address] ELECTROCARDIOGRAM REPORT Name: RUY CANDELARIA Room: [address] ADM IN .R.#: [id number] Admission: 12/24/18 Attend Phys: Trenton Somers MD Discharge: Date of : 55 Report #: [id number] THIS REPORT FOR: //name// [facility] ED Test Date: 2018-12-24 Test Time: 20:36:57 Pat Name: RUY CANDELARIA Department: Room: [facility] Gender: F Installation Drafter: GONZALO : 1955 Requested By: Tara Reinoso Order Number: [id number] MD: Kvng Strong Measurements Intervals [place] Rate: 94 P: 62 [place]: 149 QRS: -29 QRSD: 74 T: 53 QT: 337 QTc: 422 Interpretive Statements Sinus rhythm Probable left atrial enlargement Borderline left axis deviation Low voltage, precordial leads Compared to ECG 11/24/2018 15:18:57 Low QRS voltage now present Sinus tachycardia no longer present Myocardial infarct finding no longer present Electronically Signed On 12-25-2018 13:19:53 CDT by Kvng Strong [email or web address] <ELECTRONICALLY SIGNED> By: Kvng Strong MD, [facility] 12/25/18 1319 35 35 Kvng Strong MD, [facility] /EPI
--- NOTE | 2018-12-25 13:26 | EKG ---
[place] [address] ELECTROCARDIOGRAM REPORT Name: RUY CANDELARIA Room: [address] ADM IN M.R.#: [id number] Admission: 12/24/18 Attend Phys: Trenton Somers MD Discharge: Date of : 55 Report #: [id number] THIS REPORT FOR: //name// [facility] Test Date: 2018-12-25 Test Time: 09:50:17 Pat Name: RUY CANDELARIA Department: Room: [address] Gender: F Key Operator: JENY : 1955 Requested By: Walker Fiore Order Number: [id number] Davon MD: Kvgn Strong Measurements Intervals [place] Rate: 99 P: 78 [place]: 150 QRS: -12 QRSD: 83 T: 60 QT: 325 QTc: 417 Interpretive Statements Sinus rhythm Probable left atrial enlargement Low voltage, extremity leads Compared to ECG 11/24/2018 15:18:57 Low QRS voltage now present Sinus tachycardia no longer present Myocardial infarct finding no longer present Electronically Signed On 12-25-2018 13:25:50 CDT by Kvng Strong [email or web address] <ELECTRONICALLY SIGNED> By: Kvng Strong MD, [facility] 12/25/18 1325 0950 0950 Kvng Strong MD, [facility] /EPI
--- NOTE | 2018-12-25 16:20 | NUR ---
SPOKE BRIEFLY WITH PATIENT. PT KNOWN TO CASE BOB FROM PREVIOUS ADMISSIONS. PT LIVES WITH HER DTR AND SON-IN-LAW. [facility]. PT GOING TO IR SOON TO HAVE ABSCESS DRAIN PLACED. CASE BOB WILL CONTINUE TO FOLLOW.
--- NOTE | 2018-12-25 17:32 | NUR ---
PT CARE ASSUMED AFTER REPORT. ASSESSMENTS COMPLETE. SR ON MONITOR. BIPAP REMOVED BY RT THIS AM PER DR REQUEST. O2 2L NC. PRN PAIN MEDICATIONS GIVEN PER PT REQUEST. IVF INFUSING. PT A/O X4 BUT HAS SOME CONFUSUION AT TIMES. PT TO IR FOR DRAINAGE OF ABD ABCESS AT THIS TIME. COOPER TO DD. COLOSTOMY WITH OUTPUT. PROGRESSING TOWARDS GOALS.
--- NOTE | 2018-12-25 18:25 | NUR ---
PT BACK FROM IR. DRAIN TO BAG PLACED INTO RLQ. THICK, BLOODY DRAINAGE. PRN PAIN MEDICATION GIVEN.
[2018-12-26] VITALS (17 sets, daily range): BP systolic 82–143; BP diastolic 45–110
[2018-12-26 02:41] LABS: ABSOLUTE EOSINOPHILS 0.1 thou/uL (0.0-0.7); ABSOLUTE LYMPHOCYTES 1.4 thou/uL (0.8-5.3); ABSOLUTE MONOCYTES 0.8 thou/uL (0.0-1.2); ABSOLUTE NEUTROPHILS 6.5 thou/uL (1.6-8.1); BASOPHILS 0.4 %; EOSINOPHILS 0.6 %; HEMATOCRIT 32.3 % (37.0-47.0); HEMOGLOBIN 10.1 gm/dL (12.0-15.0); LYMPHOCYTES 16.1 %; MCH 26.9 pg (26.0-34.0); MCHC 31.2 g/dL (28.0-37.0); MONOCYTES 9.4 %; NUCLEATED RBCS 0 /100WBC; PLATELET COUNT* 183 thou/uL (150-400); POLYS 73.5 %; RBC 3.75 mil/uL (4.20-5.00); RDW-CV 19.7 % (10.5-14.5); WBC 8.8 thou/uL (4.0-11.0)
[2018-12-26 02:56] LABS: CALCIUM 7.9 mg/dL (8.5-10.1); CREATININE 0.6 mg/dL (0.6-1.3); MAGNESIUM 1.2 mg/dL (1.8-2.4); POTASSIUM 3.8 mmol/L (3.5-5.1)
--- NOTE | 2018-12-26 05:55 | NUR ---
REPORT RECEIVED FROM OFF GOING SHIFT AND CARE ASSUMMED. PT AAOX4 REPS REG AND UNLABORED SKIN W/D, NO LACUTE DISTRESS NOTED. O2 2L BNC INTACT. PT REFUSED TO WEAR BIPAP DURING NIGHT STATES SHE CANT BREATH WITHIT ON. STAYED ON ABOUT 4 MINUTES. RLQ DRAIN INTACT AND PUTTING OUT PURULENT BLOOD TINGED DRAINAGE. COLOSTOMY BAG INTACTWIHT BROWN STOOL NOTED. FOLWY INTACT AND PATENT DRAINING CLEAR YELLOW URINE OT BEDSIDE BAG. VSS AND NO ALCUTE CHANGES DURING SHIFT WILL COTINUE OT MONITOR
--- NOTE | 2018-12-26 11:02 | CON ---
[address] [address] CONSULTATION Name: RUY CANDELARIA Room: [address] IN M.R.#: [id number] Admission: 12/24/18 Attend Phys: Trenton Somers MD Discharge: Date of : 55 Report #: [id number] THIS REPORT FOR: //name// CC: Trenton Somers [facility] physician/PCP DATE OF SERVICE: 12/25/2018 INFECTIOUS DISEASE CONSULTATION ATTENDING PHYSICIAN: Trenton Somers MD REASON FOR EVALUATION: Multiple right lower quadrant abscesses. HISTORY OF PRESENT ILLNESS: Chart reviewed, patient examined. This is a 63-year-old woman known to myself who was admitted roughly a month ago. At that point, had suspected accidental overdose of sleeping medicines, previously had been hospitalized in October with severe illness, diagnosis of perforated diverticulitis and fecal peritonitis. During that most recent November hospitalization, she was felt to have pneumonitis in the setting of sepsis. She eventually was transitioned off significant supportive measures, out of the ICU. She apparently was doing fairly well until less than 24 hours prior to her admission when was awoken out of sleep complaining of severe right lower quadrant pain and progressive encephalopathy. On evaluation, she was found to have multiple abscesses on imaging, is scheduled to undergo percutaneous drainage and was empirically started on antimicrobial therapy with piperacillin and tazobactam and levofloxacin. She is in moderate distress at this point and seems to have less overall encephalopathy. She denies fevers nor has she had significant anorexia or pulmonary related complaints prior to the onset. ALLERGIES: None known. MEDICATIONS: Include enoxaparin, atorvastatin, fentanyl, ketorolac, ipratropium and albuterol inhaler, citalopram, diltiazem CD, nicotine patch, guaifenesin, docusate sodium, aspirin, carvedilol, gabapentin, pantoprazole, Zosyn, p.r.n. analgesics and antiemetics. PAST MEDICAL HISTORY: Includes diabetes mellitus, hypertension, COPD, chronic back pain, history of perforated diverticulitis, has an ileostomy at this point, history of ischemic colitis, known vasculopathy with coronary artery disease with cardiac stenting. SOCIAL HISTORY: Apparently smokes. Occasional ethanol. Does utilize marijuana as well. FAMILY HISTORY: [place] [address] CONSULTATION Name: RUY CANDELARIA Room: [address] IN [facility].#: [id number] Admission: 12/24/18 Attend Phys: Trenton Somers MD Discharge: Date of : 55 Report #: [id number] REVIEW OF SYSTEMS: Otherwise unremarkable with the exception of the above. Denies any significant change in her pulmonary status. PHYSICAL EXAMINATION: GENERAL: She appears chronically ill, in [id number] distress. She is lethargic and appears undernourished. VITAL SIGNS: Temperature 97.2, pulse 80, respirations 20 and blood pressure 138/68. SKIN: Warm, dry. There are no rashes. HEENT: Normocephalic. Extraocular muscles are intact. NECK: Supple. LUNGS: Diminished breath sounds. HEART: Regular, has a soft systolic murmur. ABDOMEN: Soft. There is some tenderness. There is no peritoneal sign. EXTREMITIES: Distal lower extremities, mild edema. GENITOURINARY: Deferred. RECTAL: Deferred. LABORATORY DATA: CBC: White count of 7.7, H and H 10.9 and 35.3, platelets of 203. Differential unremarkable. ABGs: pH 7.366, pCO2 of 35.3, pO2 of 73.1 on 2 liters. Electrolytes: Sodium 141, potassium 3.3, chloride 107, bicarbonate is 24, anion gap of 10, BUN and creatinine 10 and 0.6. LFTs are unremarkable. Albumin of 2.2 and total protein 5.6. Lactic acid 0.6. CTA chest PE protocol, no evidence of pulmonary embolus. CT of the abdomen and pelvis showed multiple abscesses within the right lower quadrant and pelvic descending to the anterior abdominal wall, post-surgical changes, left lower quadrant colostomy with interval development of moderate fat containing parastomal hernia and normal appendix. Urinalysis showed marked pyuria with greater than 25 white cells, bacteriuria with greater than 30. ASSESSMENT: Right lower quadrant multiple abscesses. She likely has a complicated urinary tract infection as well. We will continue empiric coverage. Would expect a polymicrobial etiology for the former. It certainly raises question of some sort of colonic leak at this point. In terms of the urinary tract, I would expect a gram-negative in all likelihood. At this point, she has responded to resuscitative measures. She remains critically ill. Continue to monitor expectantly. Await findings of the analysis of the fluid obtained percutaneously. We will monitor expectantly. Certainly at risk for nosocomial related infectious complications. Add incentive spirometry. <ELECTRONICALLY SIGNED> By: Arias Mcclellan MD 12/26/18 1102 1650 [id number] Mcclellan MD /nt
--- NOTE | 2018-12-26 17:42 | EKG ---
[place] [address] ELECTROCARDIOGRAM REPORT Name: RUY CANDELARIA Room: [address] ADM IN M.R.#: [id number] Admission: 12/24/18 Attend Phys: Trenton Somers MD Discharge: Date of : 55 Report #: [id number] THIS REPORT FOR: //name// [facility] Test Date: 2018-12-26 Test Time: 13:36:21 Pat Name: RUY CANDELARIA Department: Room: [address] Gender: F Sample Card Maker: : 1955 Requested By: Walker Fiore Order Number: [id number] Davon MD: Carl Pearce Measurements Intervals [place] Rate: 75 P: 68 [place]: 158 QRS: 11 QRSD: 86 T: 51 QT: 391 QTc: 437 Interpretive Statements Sinus rhythm Low voltage, precordial leads Compared to ECG 12/25/2018 09:50:17 No significant changes Electronically Signed On 12-26-2018 17:41:57 CDT by Carl Pearce [email or web address] <ELECTRONICALLY SIGNED> By: Carl Pearce MD, [facility] 12/26/18 1741 1336 133 Carl Pearce MD, [facility] /EPI
--- NOTE | 2018-12-26 19:15 | NUR ---
PT ASSESSMENT CHARTED. VSS THROUGHOUT SHIFT. UP WITH ASSISTANCE TO BEDSIDE COMMODE. PAIN RATED 6-8/10 IN BACK AND RLQ RELIEVED PARTIALLY WITH PRN PAIN MEDICATION. RLQ DRAIN ONLY HAD 30 OUT. COLOSTOMY ONLY WITH SCANT AMOUNT OUT WELL. PT EATING ALL MEALS WITHOUT DIFFICULTY. NO FEVERS.
[2018-12-27] VITALS (14 sets, daily range): BP systolic 97–138; BP diastolic 47–60
[2018-12-27 02:04] LABS: ABSOLUTE EOSINOPHILS 0.1 thou/uL (0.0-0.7); ABSOLUTE LYMPHOCYTES 1.2 thou/uL (0.8-5.3); ABSOLUTE MONOCYTES 0.4 thou/uL (0.0-1.2); ABSOLUTE NEUTROPHILS 3.4 thou/uL (1.6-8.1); BASOPHILS 0.4 %; EOSINOPHILS 1.2 %; HEMATOCRIT 31.8 % (37.0-47.0); HEMOGLOBIN 10.1 gm/dL (12.0-15.0); LYMPHOCYTES 23.7 %; MCH 27.2 pg (26.0-34.0); MCHC 31.9 g/dL (28.0-37.0); MCV 85.4 fL (80.0-100.0); MONOCYTES 8.7 %; MPV 8.5 fl. (7.2-11.1); NUCLEATED RBCS 0 /100WBC; PLATELET COUNT* 175 thou/uL (150-400); RBC 3.73 mil/uL (4.20-5.00); WBC 5.1 thou/uL (4.0-11.0)
[2018-12-27 02:24] LABS: CALCIUM 8.2 mg/dL (8.5-10.1); CREATININE 0.6 mg/dL (0.6-1.3); POTASSIUM 3.7 mmol/L (3.5-5.1)
--- NOTE | 2018-12-27 06:25 | NUR ---
VITALS STABLE, AFEBRILE. NO CHANGE IN HEMATOMA, DRAINAGE ON DRESSING, WARMTH TO RIGHT ABDOMEN, 20 CC FROM DRAIN. PATIENT REPORTS PAIN TO SITE, COMPLETE RELIEF BY MEDS. 800 CC UOP. ABLE TO TURN SELF IN BED. ABLE TO USE CALL LIGHT, PT SOMETIMES CONFUSED, BUT ALERT AND ORIENTED X4.
--- NOTE | 2018-12-27 10:00 | NUR ---
PT A/O X'S 4. C/O OF RIGHT LOWER QUAD ABDOMINAL PAIN. PRN MEDICATION ADMININSTERED PER EMAR. VSS. AFEBRILE. PT M/S TELEMETRY STATUS. PT TOLERATING CARB CONTROLLED DIET. PT STATES SHE DOES NOT THINK SHE IS A DIABETIC. PT UP STAND BY ASSIST TO BSC. WILL CONTINUE PLAN OF CARE.
--- NOTE | 2018-12-27 18:47 | NUR ---
PT CONTINTUES TO C/O OF RLQ ABDOMINAL PAIN. PRN PO AND IV PAIN MEDICATION GIVEN WITH NO RELIEF. SURGERY NOTIFIED. NO ADDITIONAL ORDERS RECEIVED. PT SLEEPING AT SOME REASSESSMENTS. RLQ APPEARS RED, HARD AND EDEMATOUS. SURGERY NOTIFIED. PER SURGERY THESE SYMPTOMS ARE NOT NEW AND HAVE NOT IMPROVED, BUT HAVE NOT GOTTEN WORSE. DRESSING TO RLQ DRAIN CHANGED. PT SAT IN CHAIR THIS SHIFT. PT REPORTS SITTING UP HURTS HER ABDOMEN.
--- NOTE | 2018-12-27 18:54 | NUR ---
PT REPORTS NO STOOL FROM COLOSTOMY. SCHEDULED DOCUSATE GIVEN ALONG WITH PRN BISACODYL AND MILK OF MAG. WILL CONTINUE TO MONTITOR.
--- NOTE | 2018-12-27 21:48 | NUR ---
PATIENT IN HALLWAY FROM AROUND 1999 TO 2100 DUE TO TORNADO WARNING PER PROTOCOL. VITALS WNL BEFORE STAYING IN HALLWAY. PATIENT ON WHEELCHAIR, NO COMPLAINTS AT THIS TIME.
[2018-12-28] VITALS: BP 131/55
[2018-12-28 00:08] VITALS: BP 131/55
[2018-12-28 04:00] VITALS: BP 128/44
[2018-12-28 04:06] VITALS: BP 128/44
[2018-12-28 05:11] LABS: HEMATOCRIT 29.5 % (37.0-47.0); HEMOGLOBIN 9.5 gm/dL (12.0-15.0); MCHC 32.4 g/dL (28.0-37.0); MCV 83.1 fL (80.0-100.0); MPV 8.4 fl. (7.2-11.1); RBC 3.54 mil/uL (4.20-5.00); RDW-CV 19.2 % (10.5-14.5); WBC 4.9 thou/uL (4.0-11.0)
[2018-12-28 05:12] LABS: ALBUMIN 1.8 g/dL (3.4-5.0); CALCIUM 8.6 mg/dL (8.5-10.1); CREATININE 0.6 mg/dL (0.6-1.3); MAGNESIUM 1.7 mg/dL (1.8-2.4); POTASSIUM 3.9 mmol/L (3.5-5.1); TOTAL BILIRUBIN 0.2 mg/dL (<0.1-1.0); TOTAL PROTEIN 5.3 g/dL (6.4-8.2)
--- NOTE | 2018-12-28 05:27 | NUR ---
VITALS STABLE, AFEBRILE. PT SLEPT THROUGH MOST OF THE NIGHT. REQUESTS PAIN MEDS FOR ABDOMINAL PAIN WITH RELIEF. SMALL, LIQUID STOOL IN COLOSTOMY, LOTS OF FLATUS. ABLE TO TURN SELF IN BED. CALL LIGHT WITHIN REACH.
--- NOTE | 2018-12-28 13:30 | NUR ---
PT TRANSFERED TO ROOM 229 AT APPROX 1115. PT A/O X4, ON 2L O2. I HAVE REVIEWED AND AGREE WITH THE ASSESMENT OF KRISHNA Arita RN. DRAIN DRESSING CHANGED PER DR REQUEST. PT TOLERATED WELL. SHE DOES C/O PAIN IN RLQ, MEDS GIVEN PER OCT. PT UP WITH ASSIST, USES CALL LIGHT APPROPRIATLY. WILL CONTINUE WITH PLAN OF CARE.
[2018-12-28 15:53] VITALS: BP 104/57
--- NOTE | 2018-12-28 17:42 | NUR ---
PT CONTINUES TO C/O RLQ PAIN, MEDS GIVEN PER OCT. DRESSING TO DRAIN CHANGED, DRESSING WAS SATURATED WITH YELLOW MUCOUS DRAINAGE. MINIMAL OUTPUT IN DRAIN BAG. COLOSTOMY HAS SOFT BROWN STOOL, PT UP TO COMODE FREQUENTLY TO URINATE. C/O SOME NAUSEA. ABLE TO EAT SOME DINNER. FALL PRECAUTIONS IN PLACE. VSS, M/S STATUS. WILL COTNINUE TO MONITOR.
--- NOTE | 2018-12-28 19:33 | NUR ---
WOUND CARE NOTE:CONSULT FOR STAGE 2 COCCYX PU PT STATES SHE HAS HAD THE PU FOR SEVERAL MONTHS SINCE A PRIOR STAY AT THE HOSPITAL. PT FOUND TO HAVE STAGE 2 PU TO COCCYX MEASURING 0.4X0.2X0.2. IT IS NOT DRAINING, IT IS HEALING. ANTWAN WOUND IS RED, BLANCHES. SIDE WAS CLEASED WITH WATER, BARRIOR CREAM APPLIED. PT TOLERATED WELL. PT STATES AT HOME SHE HAS BEEN USING A CREAM ON IT. PT INSTRUCTED TO TURN Q2 HRS AND TO MINIMIZE TIME ON COCCYX. PT VERBALIZED UNDERSTANDING. RECOMEND: TURN Q2 HR USING WEDGES. NO BRIEFS WASH AREA WITH SOAP AND WATER BID AND PRN, COVER WITH BARRIOR CREAM.
[2018-12-28 20:00] VITALS: BP 162/66
[2018-12-29] VITALS: BP 120/62
[2018-12-29 04:00] VITALS: BP 108/60
--- NOTE | 2018-12-29 05:13 | NUR ---
PT SLEPT ON AND OFF THIS SHIFT. ASSESSMENT DOCUMENTED. MEDS GIVEN PER E-OCT. IV PATENT. ABX INFUSED. PAIN MEDS GIVEN PER E-OCT. NO REPORTS OF NAUSEA THIS SHIFT. PT UP TO BATHROOM SEVERAL TIMES. DRAIN DRESSING CHANGED, DRAIN FLUSHED. WILL CONTINUE WITH PLAN OF CARE.
[2018-12-29 08:30] VITALS: BP 106/58
[2018-12-29 15:51] VITALS: BP 110/58
--- NOTE | 2018-12-29 19:42 | NUR ---
ASSUMED PT CARE AT 729, FULL ASSESMENT DONE CHARTED. PT A/O X4, ANXIOUS AT TIMES. UP SBA, RLQ PAIN, MEDS GIVEN PER OCT. DRAIN IN PLACE DRAINING YELLOW FLUID. DRESSING REPLACED TODAY. COLOSTOMY WITH SOFT BROWN OUTPUT. BAG CHANGED TODAY. PT USES CALL LIGHT APPROPRIALTY. FALL PRECAUTIONS IN PLACE.REPORT GIVEN TO ELIAS LUNDBERG
[2018-12-29 20:10] VITALS: BP 117/51
[2018-12-30 04:00] VITALS: BP 111/42
--- NOTE | 2018-12-30 07:52 | NUR ---
PT SLEPT FAIRLY WELL OVERNIGHT. UP WITH SBA TO BSC TO VOID. COLOSTOMY WITH SOFT STOOL PRESENT. RLQ ABD DRAIN WITH 20ML OUTPUT MILKY GUTIERREZ FLUID, FLUSHED WITH 10MLS NS ORDERED THIS SHIFT. HS ACCUCHECK 126, INSULIN GIVEN ORDERED WITH SNACK. HAS BEEN NPO SINCE MIDNIGHT FOR ABD CT TODAY. AM LAB DRAWN. LAC SL, ABX GIVEN ORDERED. ROOM AIR OVERNIGHT SATS 91-94%. PT TURNED AND REPOSITIONED Q2 HOURS AND PRN TO KEEP OFF OF RED BUTTOCKS, ABLE TO TURN SELF WITH REMINDERS. HYDROCODONE GIVEN FOR CO PAIN WITH GOOD RESULT.ABLE TO USE CALL LITE AND MAKE NEEDS KNOWN. HOPEFUL FOR DISCHARGE HOME SOON.
[2018-12-30 08:00] VITALS: BP 137/53
[2018-12-30] MEDS ORDERED: FLAGYL500 M1 PO (11:30)
[2018-12-30] MEDS ORDERED: CIPRO500 M1 PO (11:30)
[2018-12-30 15:30] VITALS: BP 121/81
[2018-12-30 16:00] VITALS: BP 123/88
--- NOTE | 2018-12-30 16:29 | NUR ---
ASSUMED CARE OF PT THIS AM ASSESSED AND DOCUMENTED. SEE CHART. PT HAS BEEN D/C'D TO HOME. PER DR RAMIRES SEND PT WITH THE DRAIN AND HAVE HER FOLLOW UP WITH HIS OFFICE AND DR WHITE OFFICE. EDUCATION GIVEN RE FOLLOW-UP, MEDICATIONS, AND DRS ORDERS. SCRIPTS GIVEN. PT HAD NO IV TO D/C OR MONITER. PT HAS TO FIND A RIDE HOME.
--- NOTE | 2018-12-30 17:28 | NUR ---
PT LEFT AFTER WE CALLED TAXI WITH A VOUCHER.
== END 2018-12-30 17:55 | disposition home or self-care (01) | DRG 871 ==
LOC: M.ERS 20:27 → M.ICU 22:08 → M.TBA-ER 22:08 → M.ICU 12-25 01:55 → M.2W 12-28 11:38
PROVIDERS: Emergency Medicine; Internal Medicine; Surgery; ADMIT Internal Medicine
PROC: 5A09357 Assistance with Respiratory Ventilation, Less than 24 Consecutive Hours, Continuous Positive Airway Pressure (ICD-10-PCS; principal; 2018-12-25)
PROC: 0W9G30Z Drainage of Peritoneal Cavity with Drainage Device, Percutaneous Approach (ICD-10-PCS; 2018-12-26)
PROC: 5A09357 Assistance with Respiratory Ventilation, Less than 24 Consecutive Hours, Continuous Positive Airway Pressure (ICD-10-PCS; 2018-12-26)
DX: A41.9 Sepsis, unspecified organism (principal); J96.02 Acute respiratory failure with hypercapnia; E43 Unspecified severe protein-calorie malnutrition; K65.1 Peritoneal abscess; N39.0 Urinary tract infection, site not specified; E11.9 Type 2 diabetes mellitus without complications; G89.29 Other chronic pain; M54.9 Dorsalgia, unspecified; R91.8 Other nonspecific abnormal finding of lung field; B96.20 Unspecified Escherichia coli [E. coli] as the cause of diseases classified elsewhere; K43.5 Parastomal hernia without obstruction or gangrene; S00.93XA Contusion of unspecified part of head, initial encounter; X58.XXXA Exposure to other specified factors, initial encounter; K21.9 Gastro-esophageal reflux disease without esophagitis; G25.81 Restless legs syndrome; M81.0 Age-related osteoporosis without current pathological fracture; I25.10 Atherosclerotic heart disease of native coronary artery without angina pectoris; I10 Essential (primary) hypertension; J44.9 Chronic obstructive pulmonary disease, unspecified; Z79.84 Long term (current) use of oral hypoglycemic drugs; Z79.899 Other long term (current) drug therapy; Z95.5 Presence of coronary angioplasty implant and graft; Z90.49 Acquired absence of other specified parts of digestive tract; Z80.9 Family history of malignant neoplasm, unspecified; Z90.710 Acquired absence of both cervix and uterus; Z87.891 Personal history of nicotine dependence; Y93.89 Activity, other specified; Y92.89 Other specified places as the place of occurrence of the external cause; Y99.8 Other external cause status; Z68.25 Body mass index [BMI] 25.0-25.9, adult

== ENCOUNTER 2019-01-07 18:07 | Emergency (ER) | payer MEDICAID ==
[~2019-01-07] VITALS: Ht 172.7 cm; Wt 66.2 kg
[~2019-01-07 18:07] MED LIST changes: +CIPRO500 M1 PO; +FLAGYL500 M1 PO
[2019-01-07 18:55] LABS: ABSOLUTE BASOPHILS 0.1 thou/uL (0.0-0.2); ABSOLUTE EOSINOPHILS 0.1 thou/uL (0.0-0.7); ABSOLUTE LYMPHOCYTES 2.6 thou/uL (0.8-5.3); ABSOLUTE MONOCYTES 0.7 thou/uL (0.0-1.2); ABSOLUTE NEUTROPHILS 4.8 thou/uL (1.6-8.1); BASOPHILS 1.4 %; EOSINOPHILS 1.8 %; HEMATOCRIT 37.6 % (37.0-47.0); HEMOGLOBIN 11.8 gm/dL (12.0-15.0); LYMPHOCYTES 31.1 %; MCH 26.5 pg (26.0-34.0); MCHC 31.4 g/dL (28.0-37.0); MCV 84.4 fL (80.0-100.0); MONOCYTES 8.8 %; MPV 7.5 fl. (7.2-11.1); NUCLEATED RBCS 0 /100WBC; PLATELET COUNT* 380 thou/uL (150-400); POLYS 56.9 %; RBC 4.46 mil/uL (4.20-5.00); RDW-CV 19.9 % (10.5-14.5); WBC 8.4 thou/uL (4.0-11.0)
[2019-01-07 19:00] LABS: CALCIUM 9.3 mg/dL (8.5-10.1); POTASSIUM 3.8 mmol/L (3.5-5.1)
[2019-01-07 19:05] LABS: ALBUMIN 3.1 g/dL (3.4-5.0); TOTAL BILIRUBIN 0.2 mg/dL (<0.1-1.0)
[2019-01-07] MEDS ORDERED: HYDROCODON-ACE1 EAC7 PO (20:41)
[2019-01-07 21:31] LABS: URINE BILIRUBIN NEGATIVE (Negative); URINE BLOOD NEGATIVE (Negative); URINE CLARITY CLEAR; URINE COLOR YELLOW; URINE GLUCOSE-RANDOM NEGATIVE (Negative); URINE KETONES NEGATIVE (Negative); URINE LEUKOCYTES-REFLEX NEGATIVE (Negative); URINE NITRITE-REFLEX NEGATIVE (Negative); URINE PROTEIN NEGATIVE (Negative); URINE SPECIFIC GRAVITY <= 1.005 (1.005-1.030); URINE UROBILINOGEN 0.2 E.U./dl (0.2-1.0)
[2019-01-07 22:03] VITALS: BP 144/72
== END 2019-01-07 22:03 | disposition home or self-care (01) ==
LOC: M.ERS 18:07
PROVIDERS: Physician Assistant
DX: R10.31 Right lower quadrant pain (principal); L76.34 Postprocedural seroma of skin and subcutaneous tissue following other procedure; E11.9 Type 2 diabetes mellitus without complications; I10 Essential (primary) hypertension; J44.9 Chronic obstructive pulmonary disease, unspecified; G89.29 Other chronic pain; M54.9 Dorsalgia, unspecified; G25.81 Restless legs syndrome; I25.10 Atherosclerotic heart disease of native coronary artery without angina pectoris; M81.0 Age-related osteoporosis without current pathological fracture; F17.210 Nicotine dependence, cigarettes, uncomplicated; Z90.710 Acquired absence of both cervix and uterus; Y83.8 Other surgical procedures as the cause of abnormal reaction of the patient, or of later complication, without mention of misadventure at the time of the procedure; Y92.89 Other specified places as the place of occurrence of the external cause

== ENCOUNTER 2019-01-10 11:11 | Inpatient (IN) | payer MEDICAID ==
[~2019-01-10] VITALS: Ht 172.7 cm; Wt 71.7 kg
[~2019-01-10 11:11] MED LIST changes: +HYDROCODON-ACE1 EAC7 PO
[2019-01-10 11:12] VITALS: BP 109/76
[2019-01-10 11:31] LABS: ABSOLUTE EOSINOPHILS 0.2 thou/uL (0.0-0.7); ABSOLUTE LYMPHOCYTES 3.2 thou/uL (0.8-5.3); ABSOLUTE MONOCYTES 0.9 thou/uL (0.0-1.2); ABSOLUTE NEUTROPHILS 5.9 thou/uL (1.6-8.1); BASOPHILS 0.3 %; EOSINOPHILS 1.6 %; HEMATOCRIT 41.2 % (37.0-47.0); HEMOGLOBIN 12.9 gm/dL (12.0-15.0); LYMPHOCYTES 31.4 %; MCH 26.3 pg (26.0-34.0); MCHC 31.3 g/dL (28.0-37.0); MONOCYTES 8.5 %; MPV 7.6 fl. (7.2-11.1); NUCLEATED RBCS 0 /100WBC; PLATELET COUNT* 392 thou/uL (150-400); POLYS 58.2 %; RDW-CV 19.4 % (10.5-14.5); WBC 10.1 thou/uL (4.0-11.0)
[2019-01-10 11:40] LABS: ANION GAP 10 mmol/L (7-16); BUN 12 mg/dL (7-18); CALCIUM 9.1 mg/dL (8.5-10.1); CHLORIDE 102 mmol/L (98-107); CO2 25 mmol/L (21-32); CREATININE 0.7 mg/dL (0.6-1.3); GLUCOSE 241 mg/dL (70-99); POTASSIUM 4.3 mmol/L (3.5-5.1); SODIUM 137 mmol/L (136-145)
[2019-01-10 11:49] LABS: ALBUMIN 3.2 g/dL (3.4-5.0); ALKALINE PHOSPHATASE 97 U/L (46-116); LIPASE 81 U/L (73-393); MAGNESIUM 1.6 mg/dL (1.8-2.4); SGOT 19 U/L (15-37); SGPT 16 U/L (30-65); TOTAL BILIRUBIN 0.2 mg/dL (<0.1-1.0); TOTAL PROTEIN 7.4 g/dL (6.4-8.2); TROPONIN-I LEVEL <0.06 ng/mL (<0.06)
--- NOTE | 2019-01-10 16:38 | EKG ---
[place] [address] ELECTROCARDIOGRAM REPORT Name: RUY CANDELARIA Room: [place] [address] ADM IN [facility].#: [id number] Admission: 01/10/19 Attend Phys: Lauren Banegas Discharge: Date of : 55 Report #: [id number] THIS REPORT FOR: //name// [facility] ED Test Date: 2019-01-10 Test Time: 11:15:24 Pat Name: RUY CANDELARIA Department: Room: [facility] Gender: F X Ray Consultant: YULY : 1955 Requested By: Kareem Pepe Order Number: [id number] Davon MD: Cuco May Measurements Intervals [place] Rate: 160 P: 0 [place]: QRS: -65 QRSD: 83 T: 65 QT: 294 QTc: 480 Interpretive Statements Supraventricular tachycardia Artifact in lead(s) I,III,aVL,V1 Compared to ECG 12/26/2018 13:36:21 Sinus rhythm no longer present Electronically Signed On 01-10-2019 16:37:56 CDT by Cuco May [email or web address] <ELECTRONICALLY SIGNED> By: Cuco May MD, [facility] 01/10/19 1637 1115 1115 Cuco May MD, [facility] /EPI
--- NOTE | 2019-01-10 16:39 | EKG ---
[place] [address] ELECTROCARDIOGRAM REPORT Name: RUY CANDELARIA Room: [place] [address] ADM IN [facility].#: [id number] Admission: 01/10/19 Attend Phys: Lauren Banegas Discharge: Date of : 55 Report #: [id number] THIS REPORT FOR: //name// [facility] ED Test Date: 2019-01-10 Test Time: 11:51:00 Pat Name: RUY CANDELARIA Department: Room: [facility] Gender: F Map Drafter: BECKY : 1955 Requested By: Kareem Pepe Order Number: [id number] MD: Cuco May Measurements Intervals [place] Rate: 115 P: 76 [place]: 158 QRS: -72 QRSD: 81 T: 72 QT: 313 QTc: 433 Interpretive Statements Sinus tachycardia Left atrial enlargement Inferior infarct, old Electronically Signed On 01-10-2019 16:39:05 CDT by Cuco May [email or web address] <ELECTRONICALLY SIGNED> By: Cuco May MD, [facility] 01/10/19 1639 1151 1151 Cuco May MD, [facility] /EPI
[2019-01-10 19:33] VITALS: BP 117/72
[2019-01-10 20:00] VITALS: BP 135/71
--- NOTE | 2019-01-10 22:01 | NUR ---
PATIENT ARRIVED ON UNIT AT 194. VITALS OBTAINED AND HEART MONITOR APPLIED. DEPUTY SHERIFF CHIEF ASSESSMENT COMPLETED. WHEN RN ENTERED ROOM TO DO ASSESSMENT, PATIENT STATES "I NEED MY NIGHT MEDS AND IF I DO NOT GET THEM, I AM LEAVING AMA" RN SPOKE TO PATIENT ABOUT WHAT HS MEDS SHE WAS WANTING AND THEN PLACED A CALL TO THE
[2019-01-11] VITALS (7 sets, daily range): BP systolic 111–145; BP diastolic 61–75
--- NOTE | 2019-01-11 05:35 | NUR ---
PATIENT ARRIVED ON UNIT AT 1945. SEE NOTE. RESTED THROUGH THE NIGHT AND REMAINED NPO SINCE 0000. HAS BEEN NSR ON THE MONITOR. HOURLY ROUNDING COMPLETED CHARTED.
[2019-01-12 04:00] VITALS: BP 117/56
--- NOTE | 2019-01-12 05:33 | NUR ---
ASSUMED PT CARE AT APPROX 1930. PT IS AWAKE AND ORIENTED X4. VSS ON ROOM AIR. CUTTER HELPER IN PLACE TRAACING SR. PT DENIES CHEST PAIN/SOA. PT C/O BACK PAIN RELEIVED BY PAIN MEDICINE GIVEN PER OCT. PT IS ABLE TO SLEEP MOST OF THE NIGHT. CALL LIGHT WITHIN REACH. HOURLY ROUNDING DONE FOR PT SAFETY.
[2019-01-12 07:25] VITALS: BP 112/66
[2019-01-12 10:11] VITALS: BP 123/65
[2019-01-12] MEDS ORDERED: SORINE 80 MG TA80 M1 PO (10:27)
[2019-01-12 11:50] VITALS: BP 123/65
[2019-01-12] MEDS ORDERED: VENTOLIN HFA 1818 GM INH (12:03)
[2019-01-12 12:15] VITALS: BP 123/65
--- NOTE | 2019-01-12 12:29 | NUR ---
PT VSS RUNNING SR ON THE MONITOR. PT PAIN CONTROLLED AND MEDICATIONS RECONSILED IN THE CHART. PT IV REMOVED INTACT. 2 RX PROVIDED TO PT AT TIME OF DC. PT HAS NO CONCERNS AT THIS TIME. PT TO EAT LUNCH THEN WILL BE TAKEN OUT WITH HOSPITAL STAFF. WILL CONTINUE TO ASSESS AND MONITOR UNTIL PT LEAVES THE UNIT.
--- NOTE | 2019-01-12 16:34 | CON ---
[address] [address] CONSULTATION Name: RUY CANDELARIA Room: [address] IN M.R.#: [id number] Admission: 01/10/19 Attend Phys: Lauren Banegas Discharge: 01/12/19 Date of : 55 Report #: [id number] THIS REPORT FOR: //name// CC: ZAYRA Max DATE OF SERVICE: 01/10/2019 CARDIOLOGY CONSULTATION HISTORY OF PRESENT ILLNESS: The patient is a 63-year-old single white female who I was asked to see in the Emergency Room today after she was noted to be tachycardic. The patient has an extensive past medical history. She presented here last February with chest pain. I performed a cardiac catheterization from the right radial artery. She was found to have a 90% narrowing in the mid right coronary artery. Ejection fraction was of 60%. She was placed on Plavix. She apparently had another repeat heart catheterization in July at [place]. There was no significant restenosis or stent. This past spring, she developed acute abdomen and had to have a hemicolectomy for perforated colon. She had a colostomy placed. She was discharged on antibiotics and had a drain in place. She has been receiving oral antibiotics. She went to see Dr. Arellano and had the drain removed. She then felt her heart racing. Paramedics were called. She is found to be in a narrow complex tachycardia at 150 beats per minute. She was brought to the Emergency Room and given adenosine intravenously. She converted to sinus rhythm. She has had no previous history of palpitations, syncope. She denied any recent chest pain. She does have chronic dyspnea on exertion. PAST MEDICAL HISTORY: Otherwise significant for back surgery, cholecystectomy, hysterectomy and shoulder surgery. She has a history of hypertension, hyperlipidemia. MEDICATIONS: Include aspirin, Lipitor, carvedilol, Plavix, diltiazem. She was taken off lisinopril because of low blood pressure. ALLERGIES: She has no known drug allergies. FAMILY HISTORY: Negative for heart disease. SOCIAL HISTORY: She is , lives in [place] by herself. She is on disability. She recently quit smoking. No alcohol abuse. REVIEW OF SYSTEMS: She has had no history of stroke. She has COPD. No history of peptic ulcer disease, liver disease, kidney disease, cancer, [place] [address] CONSULTATION Name: RUY CANDELARIA Room: [address]#: [id number] Admission: 01/10/19 Attend Phys: Lauren Banegas Discharge: 01/12/19 Date of : 55 Report #: [id number] PHYSICAL EXAMINATION: GENERAL: Revealed a middle-aged female lying in stretcher. She appeared in no acute distress. VITAL SIGNS: Blood pressure 120/78, pulse is 90. She is afebrile. HEENT: She was anicteric, conjunctivae pink. Mucous members appear dry. CHEST: Revealed distant breath sounds. CARDIOVASCULAR: Regular rate and rhythm, no murmur. ABDOMEN: Soft. EXTREMITIES: Had no edema. SKIN: Cool and dry. NEUROLOGIC: Nonfocal. LABORATORY DATA: ECG here today showed a narrow complex tachycardia at 160 beats per minute with incomplete right bundle branch block consistent with supraventricular tachycardia. Recent workup, she had an echocardiogram in October that showed ejection fraction of 60%. She had a chest x-ray today that showed normal heart size, clear lung mcgregor. Her laboratory today showed sodium 137, potassium 4.3, creatinine 0.7, and glucose 241. Liver function studies were normal. Magnesium 1.6, albumin 3.2. Troponin 0.06. TSH 2.3 done on 01/10/2019. White blood cell count 10.1, hemoglobin 12.9. IMPRESSION AND RECOMMENDATIONS: 1. Paroxysmal supraventricular tachycardia. I would recommend switching from Coreg to sotalol. 2. Coronary artery disease. Previous stent. I will continue aspirin and Plavix. 3. Recent pelvic abscess. The patient is still receiving antibiotics. She had drain removed earlier today. 4. Status post colostomy. 5. Anemia. No history of bleeding. 6. Diabetes. The patient is on all her medications. 7. Previous tobacco abuse. The patient recently stopped smoking. 8. Hyperlipidemia. The patient is on a statin drug. 9. Chronic obstructive pulmonary disease. <ELECTRONICALLY SIGNED> By: Cuco May MD, [facility] 01/12/19 1634 1451 [id number] May MD, FAC /nt
--- NOTE | 2019-01-13 13:21 | EKG ---
[place] [address] ELECTROCARDIOGRAM REPORT Name: RUY CANDELARIA Room: [address] IN ..#: [id number] Admission: 01/10/19 Attend Phys: Lauren Banegas Discharge: 01/12/19 Date of : 55 Report #: [id number] THIS REPORT FOR: //name// [facility] ED Test Date: 2019-01-10 Test Time: 14:50:04 Pat Name: RUY CANDELARIA Department: Room: [facility] Gender: F Head Teller: MS : 1955 Requested By: Kareem Pepe Order Number: [id number] MD: Kvng Strong Measurements Intervals [place] Rate: 96 P: 81 [place]: 160 QRS: 21 QRSD: 84 T: 75 QT: 321 QTc: 406 Interpretive Statements Sinus rhythm Low voltage, extremity leads Compared to ECG 01/10/2019 11:51:00 Low QRS voltage now present Sinus tachycardia no longer present Atrial abnormality no longer present Myocardial infarct finding no longer present Electronically Signed On 01-13-2019 13:21:32 CDT by Kvng Strong [email or web address] <ELECTRONICALLY SIGNED> By: Kvng Strong MD, [facility] 01/13/19 1321 1450 1450 Kvng Strong MD, [facility] /EPI
--- NOTE | 2019-01-13 13:21 | EKG ---
[place] [address] ELECTROCARDIOGRAM REPORT Name: RUY CANDELARIA Room: [address] IN M.R.#: [id number] Admission: 01/10/19 Attend Phys: Lauren Banegas Discharge: 01/12/19 Date of : 55 Report #: [id number] THIS REPORT FOR: //name// [facility] ED Test Date: 2019-01-10 Test Time: 14:45:26 Pat Name: RUY CANDELARIA Department: Room: [facility] Gender: F Retail Support Manager: MS : 1955 Requested By: Kareem Pepe Order Number: [id number] MD: Kvng Strong Measurements Intervals [place] Rate: 140 P: [place]: QRS: -61 QRSD: 88 T: 73 QT: 306 QTc: 467 Interpretive Statements Supraventricular tachycardia Low voltage, extremity and precordial leads Consider inferior infarct Compared to ECG 01/10/2019 11:51:00 Tachycardia now present Low QRS voltage now present Sinus tachycardia no longer present Myocardial infarct finding still present Electronically Signed On 01-13-2019 13:21:20 CDT by Kvng Strong [email or web address] <ELECTRONICALLY SIGNED> By: Kvng Strong MD, [facility] 01/13/19 1321 1445 1445 Kvng Strong MD, [facility] /EPI
--- NOTE | 2019-01-13 15:34 | EKG ---
[place] [address] ELECTROCARDIOGRAM REPORT Name: RUY CANDELARIA Room: [address] IN .R.#: [id number] Admission: 01/10/19 Attend Phys: Lauren Banegas Discharge: 01/12/19 Date of : 55 Report #: [id number] THIS REPORT FOR: //name// [facility] Test Date: 2019-01-12 Test Time: 11:18:02 Pat Name: RUY CANDELARIA Department: Room: [facility] Gender: F Second Language Tutor: 1885 : 1955 Requested By: Cuco May Order Number: [id number] Davon MD: Kvng Strong Measurements Intervals [place] Rate: 61 P: 32 [place]: 171 QRS: 48 QRSD: 78 T: 72 QT: 445 QTc: 449 Interpretive Statements Sinus rhythm Anteroseptal infarct, age indeterminate possible Compared to ECG 01/10/2019 11:51:00 Sinus tachycardia no longer present Atrial abnormality no longer present Myocardial infarct finding still present Electronically Signed On 01-13-2019 15:34:39 CDT by Kvng Strong [email or web address] <ELECTRONICALLY SIGNED> By: Kvng Strong MD, [facility] 01/13/19 1534 1118 1118 Kvng Strong MD, [facility] /EPI
--- NOTE | 2019-01-13 15:34 | EKG ---
[place] [address] ELECTROCARDIOGRAM REPORT Name: RUY CANDELARIA Room: [address] DIS IN M.R.#: [id number] Admission: 01/10/19 Attend Phys: Lauren Banegas Discharge: 01/12/19 Date of : 55 Report #: [id number] THIS REPORT FOR: //name// [facility] Test Date: 2019-01-12 Test Time: 11:16:38 Pat Name: RUY CANDELARIA Department: Room: [address] Gender: F Card Grader: 1885 : 1955 Requested By: Carl Pearce Order Number: [id number] Davon MD: Kvng Strong Measurements Intervals [place] Rate: 60 P: 47 [place]: 171 QRS: 22 QRSD: 76 T: 71 QT: 443 QTc: 443 Interpretive Statements Sinus rhythm Low voltage, extremity and precordial leads Baseline wander in lead(s) V1 Compared to ECG 01/10/2019 11:51:00 Low QRS voltage now present Sinus tachycardia no longer present Atrial abnormality no longer present Myocardial infarct finding no longer present Electronically Signed On 01-13-2019 15:34:21 CDT by Kvng Strong [email or web address] <ELECTRONICALLY SIGNED> By: Kvng Strong MD, [facility] 01/13/19 1534 1116 1116 Kvng Strong MD, [facility] /EPI
== END 2019-01-12 13:05 | disposition home or self-care (01) | DRG 310 ==
LOC: M.ERS 11:11 → M.TBA-ER 14:56 → M.2W 19:32
PROVIDERS: Emergency Medicine Emergency Medical Services; ADMIT Internal Medicine
DX: I47.1 Supraventricular tachycardia (principal); I25.10 Atherosclerotic heart disease of native coronary artery without angina pectoris; I10 Essential (primary) hypertension; J44.9 Chronic obstructive pulmonary disease, unspecified; E11.9 Type 2 diabetes mellitus without complications; D64.9 Anemia, unspecified; J45.909 Unspecified asthma, uncomplicated; E78.5 Hyperlipidemia, unspecified; N73.9 Female pelvic inflammatory disease, unspecified; Z93.3 Colostomy status; Z87.891 Personal history of nicotine dependence; Z79.1 Long term (current) use of non-steroidal anti-inflammatories (NSAID); Z79.84 Long term (current) use of oral hypoglycemic drugs; Z79.899 Other long term (current) drug therapy; Z90.710 Acquired absence of both cervix and uterus

== ENCOUNTER 2019-01-26 16:32 | Inpatient (IN) | payer MEDICAID ==
[~2019-01-26] VITALS: Ht 172.7 cm; Wt 75.3 kg
[~2019-01-26 16:32] MED LIST changes: +SORINE 80 MG TA80 M1 PO
[2019-01-26 16:35] VITALS: BP 137/74
[2019-01-26 17:26] LABS: ABSOLUTE EOSINOPHILS 0.2 thou/uL (0.0-0.7); ABSOLUTE LYMPHOCYTES 1.7 thou/uL (0.8-5.3); ABSOLUTE MONOCYTES 0.6 thou/uL (0.0-1.2); ABSOLUTE NEUTROPHILS 6.2 thou/uL (1.6-8.1); BASOPHILS 0.4 %; EOSINOPHILS 2.6 %; HEMATOCRIT 37.2 % (37.0-47.0); HEMOGLOBIN 11.4 gm/dL (12.0-15.0); LYMPHOCYTES 19.8 %; MCH 26.1 pg (26.0-34.0); MCHC 30.5 g/dL (28.0-37.0); MCV 85.5 fL (80.0-100.0); MONOCYTES 6.6 %; MPV 7.9 fl. (7.2-11.1); NUCLEATED RBCS 0 /100WBC; PLATELET COUNT* 229 thou/uL (150-400); POLYS 70.6 %; RBC 4.35 mil/uL (4.20-5.00); RDW-CV 17.9 % (10.5-14.5); WBC 8.7 thou/uL (4.0-11.0)
[2019-01-26 17:29] LABS: PROTIME 9.9 Seconds (9.20-11.50)
--- NOTE | 2019-01-26 17:29 | NUR ---
COLOSTOMY BAG REPLACED. 2 PART APPLIANCE USED. PATIENT ARRIVED TO THE ER FROM EMS WITHOUT AN APPLIANCE. PATIENT WAS CLEANED UP. SHE IS VERY DIRTY AND REQUIRED SOME CLEANUP. PATIENT CLAIMS THAT [facility] WAS JUST AT HER HOUSE AND THAT THEY DIDN'T BRING HER ANY SUPPLIES.
[2019-01-26 17:32] LABS: ANION GAP 7 mmol/L (7-16); BUN 14 mg/dL (7-18); CALCIUM 8.8 mg/dL (8.5-10.1); CHLORIDE 108 mmol/L (98-107); CO2 27 mmol/L (21-32); CREATININE 0.6 mg/dL (0.6-1.3); GLUCOSE 218 mg/dL (70-99); SODIUM 142 mmol/L (136-145)
[2019-01-26 17:45] LABS: ALBUMIN 2.8 g/dL (3.4-5.0); ALKALINE PHOSPHATASE 87 U/L (46-116); LIPASE 67 U/L (73-393); NT-PRO BRAIN NAT PEPTIDE 99 pg/mL (<300); SGOT 21 U/L (15-37); SGPT 20 U/L (30-65); TOTAL BILIRUBIN 0.1 mg/dL (<0.1-1.0); TOTAL PROTEIN 6.7 g/dL (6.4-8.2); TROPONIN-I LEVEL <0.06 ng/mL (<0.06)
[2019-01-26 18:47] LABS: URINE BILIRUBIN NEGATIVE (Negative); URINE BLOOD NEGATIVE (Negative); URINE CLARITY CLEAR; URINE COLOR YELLOW; URINE GLUCOSE-RANDOM NEGATIVE (Negative); URINE KETONES NEGATIVE (Negative); URINE LEUKOCYTES-REFLEX NEGATIVE (Negative); URINE NITRITE-REFLEX NEGATIVE (Negative); URINE PROTEIN NEGATIVE (Negative); URINE UROBILINOGEN 0.2 E.U./dl (0.2-1.0)
[2019-01-26 20:30] VITALS: BP 142/73
--- NOTE | 2019-01-26 20:30 | NUR ---
PT ADMITTED TO FLOOR FROM ER PER CART ACCOMPANIED BY ER STAFF. PT HAS NO BELONGINGS WITH HER, CAME TO ER BY EMS. CO LOW ABD PAIN 10/10 CRAMPY, COLOSTOMY WITH PINK STOMA AND BROWN MUSHY STOOL PRESENT. BRUISING TO R ARM AND R ABD, SCATTERED. LFA HEALED ABRASION. HISTORY OBTAINED AND ASSESSMENT PERFORMED, SEE ADMIT NOTES. JOHANNE SL, TO BE PLACED ON PUMP FOR INFUSION. CALL LITE IN EASY REACH, BED ALARM ON FOR SAFETY. PT AOX4, CONFUSED AT TIMES-THINKING FAMILY MEMBERS ARE OUT IN [place], FORGETFUL. WILL CONTINUE TO MONITOR AND PROVIDE CARES NEEDED.
[2019-01-26 20:43] VITALS: BP 142/73
[2019-01-27] VITALS (9 sets, daily range): BP systolic 125–175; BP diastolic 47–89
--- NOTE | 2019-01-27 05:46 | NUR ---
PT SLEPT FAIRLY WELL OVERNIGHT. UP WITH SBA TO BSC TO VOID. O2 2L SAT 94% RT TX GIVEN ORDERED. RAC IVF INFUSING PER PUMP. ACCUCHECK 154. PT REQUESTNG SNACK-GIVEN. RECEIVING HYDROCODONE 2 TABS FOR CO ABD AND BACK PAIN WITH GOOD RESULT. COLOSTOMY TO LLQ ABD WITH MUSHY BROWN STOOL PRESENT. DRSG RLQ ABD CDI, OLD DRAIN SITE. SCATTERED BRUISING FROM FALL AT HOME TODAY. AO, SOME CONFUSION. AM LAB DRAWN. BUI, WHEEZES. ABLE TO USE CALL LITE AND MAKE NEEDS KNOWN. TELE SR.
--- NOTE | 2019-01-27 07:45 | NUR ---
ASSUMED CARE AFTER REPORT. A&OX4. ABLE TO COMMUNICATE NEEDS EFFECTIVELY. BIOPHYSICS TEACHER IN PLACE, SR. O2 SATS 95% 2L. UP WITH ASSIST. EXPERIENCING ANXIETY ABOUT MISPLACING HER PHONE. CALL IN TO DAUGHTER FOR PATIENT. CALL LIGHT IN REACH. HOURLY ROUNDING FOR SAFETY AND PATIENT NEEDS.
--- NOTE | 2019-01-27 11:58 | NUR ---
INITIAL ASSESSMENT: Pt evaluated for d/c planning needs. Reviewed chart and spoke with nurse and pt. Pt states she lives alone in apartment and was independent with ADL's prior to admission to the hospital. Spoke with pt's daughter Carin to confirm. Pt lives at [facility] with her 2 dogs. Pt has had [facility] in the past. Spoke with [facility] to confirm. They are able to accept pt back on d/c from hospital. Pt has walker at home. Dtr does medication set-up for patient and is supportive and involved. Dtr said she does not know how to obtain ostomy supplies. [facility] will provide supplies while pt is on service and then will give written information to pt and daughter on how to obtain supplies. Pt will need home health services arranged on d/c. Will remain available to assist as needed.
--- NOTE | 2019-01-27 15:02 | EKG ---
[place] [address] ELECTROCARDIOGRAM REPORT Name: RUY CANDELARIA Room: [address] ADM IN .R.#: [id number] Admission: 01/26/19 Attend Phys: Walker Fiore MD Discharge: Date of : 55 Report #: [id number] THIS REPORT FOR: //name// [facility] ED Test Date: 2019-01-26 Test Time: 16:39:08 Pat Name: RUY CANDELARIA Department: Room: [facility] Gender: F Digital Marketing Lead: : 1955 Requested By: Jorge Burt Order Number: [id number] MD: Kvng Strong Measurements Intervals [place] Rate: 110 P: 79 [place]: 162 QRS: -53 QRSD: 75 T: 77 QT: 319 QTc: 432 Interpretive Statements Sinus tachycardia Probable left atrial enlargement Left axis deviation Low voltage, extremity and precordial leads Nonspecific T abnrm, anterolateral leads Compared to ECG 01/12/2019 11:18:02 Left-axis deviation now present Low QRS voltage now present Myocardial infarct finding no longer present Electronically Signed On 01-27-2019 15:02:22 CDT by Kvng Strong [email or web address] <ELECTRONICALLY SIGNED> By: Kvng Strong MD, FAC 01/27/19 1502 [id number] [id number] Kvng Strong MD, FAC /EPI
--- NOTE | 2019-01-28 00:42 | NUR ---
PT ALERT ORIENTED TALKATIVE. USES CALL LIGHT APPROPRIATELY. UP TO BSC WITH STAND BY ASSIST OF ONE. PT STATING RIGHT RIB PAIN FROM FALL AT HOME. CHEST XRAY DONE NEG FOR FX. HYDRACODONE GIVEN FOR PAIN. PT STATED SHE NEEDED SLEEPING MEDICATION AND A NICOTINE PATCH. HASEEB AND MAGGIE ORDER OBTAINED. TELEMETRY SHOWS SR. BRUSING FROM FALL AT HOME OVER ABD AND R ARM AND BUTTOCKS.
[2019-01-28 04:00] VITALS: BP 141/63
--- NOTE | 2019-01-28 07:43 | CON ---
[address] [address] CONSULTATION Name: RUY CANDELARIA Room: [address] IN M.R.#: [id number] Admission: 01/26/19 Attend Phys: Walker Fiore MD Discharge: Date of : 55 Report #: [id number] THIS REPORT FOR: //name// CC: Walker Swain DATE OF SERVICE: 01/27/2019 INFECTIOUS DISEASE CONSULTATION ATTENDING PHYSICIAN: Walker Fiore M.D. REASON FOR EVALUATION: Febrile illness with dyspnea, possible early pneumonitis. HISTORY OF PRESENT ILLNESS: Chart reviewed, patient examined. This is a 63-year-old woman well known to myself. I have seen her several times in the hospital. Initially, she had a perforated sigmoid diverticulum complicated by fecal peritonitis for extended period of time in the setting of underlying chronic obstructive pulmonary disease. She was readmitted with which was felt to be incidental or accidental analgesic overdose and more recently pneumonitis. She notes she has been seen as an outpatient and the drainage catheter removed from her abdomen. She had developed some palpitations shortly thereafter. This was evaluated. She was discharged home only to be readmitted with progressive dyspnea. She denied significant amount of cough or sputum production. She states it felt like her previous heart attack. She is not encephalopathic. She did admit to some low-grade temperature elevations, some sweats as well as relatively normal appetite. She was empirically started on levofloxacin. At this point, she is lucid, in mild distress. She is chronically ill appearing. ALLERGIES: None known. MEDICATIONS: Spironolactone, lisinopril, pantoprazole, sotalol, atorvastatin, levalbuterol, citalopram, diltiazem CD, guaifenesin, docusate, aspirin, gabapentin. PAST MEDICAL HISTORY: Diabetes mellitus, previous recent valve resection, has a colostomy, hypertension, COPD, chronic back pain. Multiple surgeries including cholecystectomy, prolapsed bladder repair, previous hysterectomy, exploratory laparotomy, ischemic small bowel, duodenal ulcer, coronary artery disease with previous stenting, reflux, osteoporosis. SOCIAL HISTORY: Former smoker, occasional ethanol. No illicit drug use. FAMILY HISTORY: [place] [address] CONSULTATION Name: RUY CANDELARIA Room: [address] IN [facility]#: [id number] Admission: 01/26/19 Attend Phys: Walker Fiore MD Discharge: Date of : 55 Report #: [id number] REVIEW OF SYSTEMS: Otherwise, unremarkable 10-point review of systems except noted above. PHYSICAL EXAMINATION: GENERAL: She is pleasant, alert, cooperative. She is in [id number]-qs-opnugcml distress. She is lucid, recognized me immediately. Chronically-ill appearing. VITAL SIGNS: Temperature 97.6, pulse 68, respirations 18, and blood pressure 127/89. SKIN: Warm, dry, no rashes. HEENT: Normocephalic. Extraocular muscles intact. NECK: Supple. LUNGS: Scattered crackles at the bases. Some end-expiratory wheezes primarily on the right. HEART: Regular with some ectopy, some appreciated murmur. ABDOMEN: Soft. There is no apparent tenderness. She has gotten left lower quadrant ostomy in place. There is without evidence of any abdominal wall inflammatory eruption. EXTREMITIES: Lower extremities without evidence of edema. GENITOURINARY: Deferred. RECTAL: Deferred. LABORATORY DATA: Blood cultures are sterile thus far. Troponin less than 0.06. Urinalysis unremarkable. CT abdomen and pelvis, removal of the catheter compared to the previous, decreased overall gas and fluid collection from prior, some residual inflammation. No evidence of intra-abdominal abscess. Chest x-ray, some chronic changes without acute pulmonary process. Electrolytes: Sodium 142, potassium 5.0, chloride 108, bicarbonate 27, anion gap of 7, BUN and creatinine of 14 and 0.6, glucose of 218. LFTs unremarkable. Albumin of 2.8. Total protein 6.7. Estimated GFR of 101. Lactic acid of 1.3. CBC: White count of 8.7, H and H of 11.4 and 37.2, platelets of 229. ASSESSMENT AND PLAN: Dyspnea with fevers. At this point, there is no radiographic evidence of pneumonitis, certainly could have early situation or perhaps bronchitis. We will adjust therapy with some possibility of drug-drug interaction with the sotalol and the Levaquin. At this point, we will see how she does clinically. It is not clear if the additional diagnostic testing would help clarify other than what is pending now. We will follow. <ELECTRONICALLY SIGNED> By: Arias Mcclellan MD 01/28/19 0743 1146 02Arias Mcclellan MD /nt
[2019-01-28 08:00] VITALS: BP 180/73
[2019-01-28 12:00] VITALS: BP 147/94
[2019-01-28] MEDS ORDERED: LEVAQUIN 500 M500 M3 PO (14:29)
[2019-01-28] MEDS ORDERED: NYSTATIN100000 UNI SW&SWALLOW (14:34)
--- NOTE | 2019-01-28 14:48 | NUR ---
PRODUCTION ASSOCIATE INFORMED OF THE NEED TO ARRNAGE [employer] TRANSPORT FOR THE PATIENT TO HER HOME ADDRESS. D/C OBSERVER HELPER SPOKE TO CORBIN WITH [facility] TO ARRANGE TRANSPORT FOR THE PATIENT. CORBIN INFORMS THAT [facility] HAS A 3 HOUR WINDOW TO PICK THE PATIENT UP. [facility] WILL CALL THE UNIT TO INFORM OF THEIR ARRIVAL AND WILL PICK-UP THE PATIENT AT THE MAIN ENTRANCE. CM WILL REMAIN AVAILABLE TO ASSIST AND FOLLOW NEEDED. [employer]SPORT PHONE: [phone] CONFIRMATION TRIP # [phone]
[2019-01-28 14:59] VITALS: BP 147/94
== END 2019-01-28 16:03 | disposition home health service (06) | DRG 191 ==
LOC: M.ERS 16:32 → M.2W 18:13 → M.TBA-ER 18:13 → M.2W 20:36
PROVIDERS: Emergency Medicine; ADMIT Internal Medicine
DX: J44.1 Chronic obstructive pulmonary disease with (acute) exacerbation (principal); I50.32 Chronic diastolic (congestive) heart failure; I47.1 Supraventricular tachycardia; Z90.49 Acquired absence of other specified parts of digestive tract; I11.0 Hypertensive heart disease with heart failure; E11.9 Type 2 diabetes mellitus without complications; K52.9 Noninfective gastroenteritis and colitis, unspecified; K21.9 Gastro-esophageal reflux disease without esophagitis; M81.0 Age-related osteoporosis without current pathological fracture; M54.9 Dorsalgia, unspecified; I25.10 Atherosclerotic heart disease of native coronary artery without angina pectoris; I10 Essential (primary) hypertension; G25.81 Restless legs syndrome; Z90.710 Acquired absence of both cervix and uterus; Z95.5 Presence of coronary angioplasty implant and graft; Z79.899 Other long term (current) drug therapy; Z87.891 Personal history of nicotine dependence

== ENCOUNTER 2019-01-30 19:21 | Inpatient (IN) | payer MEDICAID ==
[~2019-01-30] VITALS: Ht 172.7 cm; Wt 74.2 kg
[~2019-01-30 19:21] MED LIST changes: +LEVAQUIN 500 M500 M3 PO; +NYSTATIN100000 UNI SW&SWALLOW
[2019-01-30 19:22] VITALS: BP 95/48
[2019-01-30 19:55] LABS: HEMATOCRIT 41.7 % (37.0-47.0); HEMOGLOBIN 12.7 gm/dL (12.0-15.0); MCH 25.7 pg (26.0-34.0); MCHC 30.4 g/dL (28.0-37.0); MCV 84.7 fL (80.0-100.0); MPV 7.8 fl. (7.2-11.1); NUCLEATED RBCS 0 /100WBC; PLATELET COUNT* 282 thou/uL (150-400); RBC 4.92 mil/uL (4.20-5.00); RDW-CV 17.7 % (10.5-14.5); WBC 16.3 thou/uL (4.0-11.0)
[2019-01-30 20:03] LABS: APTT 25.8 Seconds (25.0-31.3); PROTIME 10.3 Seconds (9.20-11.50)
[2019-01-30 20:14] LABS: ABSOLUTE LYMPHOCYTES 2.9 thou/uL (0.8-5.3); ABSOLUTE MONOCYTES 1.3 thou/uL (0.0-1.2); ABSOLUTE NEUTROPHILS 12.1 thou/uL (1.6-8.1); ANION GAP 8 mmol/L (7-16); BUN 16 mg/dL (7-18); CALCIUM 8.2 mg/dL (8.5-10.1); CHLORIDE 106 mmol/L (98-107); CO2 27 mmol/L (21-32); CREATININE 0.7 mg/dL (0.6-1.3); GLUCOSE 169 mg/dL (70-99); PLATELET ESTIMATE ADEQUATE; SODIUM 141 mmol/L (136-145)
[2019-01-30 20:27] LABS: ALBUMIN 2.9 g/dL (3.4-5.0); ALKALINE PHOSPHATASE 90 U/L (46-116); LIPASE 45 U/L (73-393); SGOT 19 U/L (15-37); SGPT 19 U/L (30-65); TOTAL BILIRUBIN 0.3 mg/dL (<0.1-1.0); TOTAL PROTEIN 6.5 g/dL (6.4-8.2); TROPONIN-I LEVEL <0.06 ng/mL (<0.06)
[2019-01-31 00:10] VITALS: BP 116/56
[2019-01-31 00:15] VITALS: BP 138/58
--- NOTE | 2019-01-31 00:15 | NUR ---
RECEIVED REPORT FROM ER, PT TO ROOM WITH BELONGING. O2 ON AT 2L/NC, NO SOA NOTED. HAVING OCC MOIST NON-PROD COUGH, WITH PAIN INTO RT RIB/CHEST AREA. 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 COLOSTOMY NOTED, PT WITH SELF CARE. TELEMETRY APPLIED SHOWING SR. SEE ADMISSION HX AND ASSESSMENT. WILL CONT TO MONITOR AND ASSIST NEEDED.
[2019-01-31 04:00] VITALS: BP 133/59
--- NOTE | 2019-01-31 07:28 | NUR ---
AWAKE MOST OF NIGHT. CONT HAVING A MOIST NON-PROD COUGH. ASSISTED TO BR, PT REMOVED OXYGEN AND BECAME VERY SOA. REMAINS IN SR. HS GOALS OF REST AND SAFETY ACHIEVED. HOURLY ROUNDING OBSERVED.
[2019-01-31 08:00] VITALS: BP 107/60
--- NOTE | 2019-01-31 09:43 | EKG ---
[place] [address] ELECTROCARDIOGRAM REPORT Name: RUY CANDELARIA Room: [address] ADM IN .R.#: [id number] Admission: 01/30/19 Attend Phys: Nora Donaldson MD Discharge: Date of : 55 Report #: [id number] THIS REPORT FOR: //name// [facility] ED Test Date: 2019-01-30 Test Time: 19:28:10 Pat Name: RUY CANDELARIA Department: Room: [facility] Gender: F Director Federal: PAKO : 1955 Requested By: Kareem Pepe Order Number: [id number] MD: Simon Marks Measurements Intervals [place] Rate: 71 P: 70 [place]: 154 QRS: -29 QRSD: 82 T: 79 QT: 408 QTc: 444 Interpretive Statements Sinus rhythm Probable left atrial enlargement Borderline left axis deviation Borderline low voltage, extremity leads Compared to ECG 01/26/2019 16:39:08 Sinus tachycardia no longer present Electronically Signed On 01-31-2019 9:43:26 CDT by Simon Marks [email or web address] <ELECTRONICALLY SIGNED> By: Simon Marks MD, FAC 01/31/19 0943 27 27 Simon Marks MD, [facility] /EPI
[2019-01-31 11:44] LABS: URINE BILIRUBIN NEGATIVE (Negative); URINE BLOOD NEGATIVE (Negative); URINE CLARITY CLEAR; URINE COLOR YELLOW; URINE GLUCOSE-RANDOM NEGATIVE (Negative); URINE KETONES NEGATIVE (Negative); URINE LEUKOCYTES-REFLEX NEGATIVE (Negative); URINE NITRITE-REFLEX NEGATIVE (Negative); URINE PROTEIN NEGATIVE (Negative); URINE SPECIFIC GRAVITY <= 1.005 (1.005-1.030); URINE UROBILINOGEN 0.2 E.U./dl (0.2-1.0)
--- NOTE | 2019-01-31 12:00 | NUR ---
RECEIVED REPORT FROM SUSANA LUNDBERG. ASSUMED CARE OF PT AROUND 07. PT A&O X4. VSS. COMMERCIAL CREDIT HEAD IN PLACE TRACING SR. AM ASSESSMENT AND VITALS COMPLETED CHARTED. IV TO RIGHT AC INTACT AND INFUSING IVF. PT REPORTED BACK AND RIGHT RIB PAIN AND RECEIVED PO PAIN MEDICATION WITH PARTIAL RELIEF. PT TOELRATING MEALS. PT STATING SHE IS READY TO GO HOME AND WANTS HOSPITAL DOCTOR TO RELEASE HER. FALL PRECAUTIONS IN PLACE. CALL LIGHT IS WITHIN REACH. HOURLY ROUNDING PERFORMED. WCTM.
[2019-01-31 12:08] VITALS: BP 107/45
--- NOTE | 2019-01-31 13:17 | NUR ---
INITIAL ASSESSMENT: Pt evaluated for d/c planning needs. Reviewed chart and spoke with nurse and pt. Pt states she lives alone in apartment and was independent with ADL's prior to admission to the hospital. Pt lives at [facility] with her 2 dogs. Pt is currently on service with [facility]. Spoke with [facility] to confirm. Pt has walker at home. Dtr does medication set-up for patient and is supportive and involved. Pt will need home health services arranged on d/c. Will remain available to assist as needed.
[2019-01-31 15:47] VITALS: BP 142/62
--- NOTE | 2019-01-31 16:10 | NUR ---
PT HAS DECIDED TO LEAVE AMA. EDUCATION GIVEN THAT IT IS THE DOCTORS RECOMMENDATION FOR HER TO STAY THE HOSPITAL. EDUCATED THE PT ON RISKS OF LEAVING AMA. PT COMMUNICATES UNDERSTANDING BUT STATES "I NEED TO GO". PT SIGNED AMA PAPER AND LEFT UNIT WALKING. ALL BELONGINGS LEFT WITH PT. 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
== END 2019-01-31 16:05 | disposition left against medical advice (07) | DRG 193 ==
LOC: M.ERS 19:21 → M.TBA-ER 21:22 → M.2W 21:22
PROVIDERS: Emergency Medicine Emergency Medical Services; ADMIT Internal Medicine
DX: J18.9 Pneumonia, unspecified organism (principal); J96.01 Acute respiratory failure with hypoxia; J44.1 Chronic obstructive pulmonary disease with (acute) exacerbation; J44.0 Chronic obstructive pulmonary disease with (acute) lower respiratory infection; E11.9 Type 2 diabetes mellitus without complications; I10 Essential (primary) hypertension; G25.81 Restless legs syndrome; I25.10 Atherosclerotic heart disease of native coronary artery without angina pectoris; K21.9 Gastro-esophageal reflux disease without esophagitis; M81.0 Age-related osteoporosis without current pathological fracture; F17.210 Nicotine dependence, cigarettes, uncomplicated; Z53.21 Procedure and treatment not carried out due to patient leaving prior to being seen by health care provider; Z90.49 Acquired absence of other specified parts of digestive tract; Z90.710 Acquired absence of both cervix and uterus; Z95.5 Presence of coronary angioplasty implant and graft; Z87.310 Personal history of (healed) osteoporosis fracture; Z79.02 Long term (current) use of antithrombotics/antiplatelets; Z79.82 Long term (current) use of aspirin; Z79.899 Other long term (current) drug therapy; Z80.8 Family history of malignant neoplasm of other organs or systems

== ENCOUNTER 2019-02-09 15:03 | Emergency (ER) | payer MEDICAID ==
[~2019-02-09] VITALS: Ht 172.7 cm; Wt 69.0 kg
[2019-02-09 16:33] VITALS: BP 105/65
== END 2019-02-09 16:34 | disposition home or self-care (01) ==
LOC: M.ERS 15:03
DX: S92.342A Displaced fracture of fourth metatarsal bone, left foot, initial encounter for closed fracture (principal); W06.XXXA Fall from bed, initial encounter; Y93.89 Activity, other specified; Y92.89 Other specified places as the place of occurrence of the external cause; Y99.8 Other external cause status; J44.9 Chronic obstructive pulmonary disease, unspecified; E11.9 Type 2 diabetes mellitus without complications; I10 Essential (primary) hypertension; M54.9 Dorsalgia, unspecified; G89.29 Other chronic pain; K21.9 Gastro-esophageal reflux disease without esophagitis; Z95.5 Presence of coronary angioplasty implant and graft; F17.210 Nicotine dependence, cigarettes, uncomplicated

== ENCOUNTER 2019-02-19 17:07 | Emergency (ER) | payer MEDICAID ==
[~2019-02-19] VITALS: Ht 172.7 cm; Wt 71.3 kg
[2019-02-19] MEDS ORDERED: BACITRAYCIN PLU28 GM TOP (17:27)
[2019-02-19] MEDS ORDERED: KETOCONAZOLE15 GM TOP (17:27)
[2019-02-19 17:34] VITALS: BP 145/70
== END 2019-02-19 17:35 | disposition home or self-care (01) ==
LOC: M.ERS 17:07
DX: B35.4 Tinea corporis (principal); E11.622 Type 2 diabetes mellitus with other skin ulcer; J44.9 Chronic obstructive pulmonary disease, unspecified; I10 Essential (primary) hypertension; G89.29 Other chronic pain; M54.9 Dorsalgia, unspecified; G25.81 Restless legs syndrome; I25.10 Atherosclerotic heart disease of native coronary artery without angina pectoris; M81.0 Age-related osteoporosis without current pathological fracture; F17.210 Nicotine dependence, cigarettes, uncomplicated; Z90.49 Acquired absence of other specified parts of digestive tract; Z90.710 Acquired absence of both cervix and uterus

== ENCOUNTER 2019-02-21 16:44 | Emergency (ER) | payer MEDICAID ==
[~2019-02-21] VITALS: Ht 172.7 cm; Wt 76.2 kg
[~2019-02-21 16:44] MED LIST changes: +BACITRAYCIN PLU28 GM TOP; +KETOCONAZOLE15 GM TOP
[2019-02-21 17:13] VITALS: BP 138/61
== END 2019-02-21 17:14 | disposition home or self-care (01) ==
LOC: M.ERS 16:44
DX: L25.9 Unspecified contact dermatitis, unspecified cause (principal); K21.9 Gastro-esophageal reflux disease without esophagitis; M54.9 Dorsalgia, unspecified; G89.29 Other chronic pain; J45.909 Unspecified asthma, uncomplicated; E11.9 Type 2 diabetes mellitus without complications; I10 Essential (primary) hypertension; G25.81 Restless legs syndrome; M81.0 Age-related osteoporosis without current pathological fracture; I25.10 Atherosclerotic heart disease of native coronary artery without angina pectoris; J44.9 Chronic obstructive pulmonary disease, unspecified; F17.210 Nicotine dependence, cigarettes, uncomplicated; Z90.710 Acquired absence of both cervix and uterus; Z90.49 Acquired absence of other specified parts of digestive tract; Z95.5 Presence of coronary angioplasty implant and graft

== ENCOUNTER → 2019-05-01 | Outpatient (CLI) | payer MEDICAID ==
[~2019-05-01] VITALS: Ht 170.2 cm; Wt 69.9 kg
[~2019-05-01] MED LIST changes: +HYDROCODONE-AP1 EA11 PO; +LISINOPRIL10 MG PO; +ONDANSETRON HCL4 M2 PO; +PRAMIPEXOLE DIHY1 MG PO; +PRENATAL VITAM1 EAC7 PO
[2019-05-01 10:51] LABS: HEMATOCRIT 42.1 % (37.0-47.0); HEMOGLOBIN 13.6 gm/dL (12.0-15.0); MCH 26.7 pg (26.0-34.0); MCHC 32.2 g/dL (28.0-37.0); MCV 82.8 fL (80.0-100.0); RBC 5.09 mil/uL (4.20-5.00); RDW-CV 16.5 % (10.5-14.5); WBC 10.8 thou/uL (4.0-11.0)
[2019-05-01 11:07] LABS: ALBUMIN 3.7 g/dL (3.4-5.0); CALCIUM 9.4 mg/dL (8.5-10.1); CREATININE 0.7 mg/dL (0.6-1.3); POTASSIUM 4.4 mmol/L (3.5-5.1); TOTAL BILIRUBIN 0.3 mg/dL (<0.1-1.0); TOTAL PROTEIN 7.4 g/dL (6.4-8.2)
== END ==
LOC: M.LAB 08:00 → EDSTATUS 05-12 06:15 → M.SUR 05-12 06:15 → M.PRE 05-12 06:17 → EDSTATUS 05-12 11:16
PROVIDERS: Surgery
DX: K56.699 Other intestinal obstruction unspecified as to partial versus complete obstruction (principal)

== ENCOUNTER 2019-06-02 07:14 | Inpatient (IN) | payer MEDICAID ==
[~2019-06-02] VITALS: Ht 170.2 cm; Wt 68.5 kg
--- NOTE | ~2019-06-02 | H ---
[address] [address] HISTORY AND PHYSICAL Name: RUY CANDELARIA Room: [address] IN .R.#: [id number] Admission: 06/02/19 Attend Phys: Corby Arellano DO Discharge: 06/06/19 Date of : 55 Report #: [id number] THIS REPORT FOR: //name// For History and Physical please refer to the handwritten note in the patient's medical record. By: 0644Medical Records Staff MALCOLM /BECKY
[2019-06-02 07:40] VITALS: BP 137/60
[2019-06-02 07:46] LABS: HEMATOCRIT 40.1 % (37.0-47.0); HEMOGLOBIN 12.7 gm/dL (12.0-15.0); MCHC 31.7 g/dL (28.0-37.0); MCV 85.1 fL (80.0-100.0); MPV 7.5 fl. (7.2-11.1); RBC 4.71 mil/uL (4.20-5.00); RDW-CV 16.5 % (10.5-14.5); WBC 14.1 thou/uL (4.0-11.0)
[2019-06-02 07:54] LABS: CALCIUM 9.4 mg/dL (8.5-10.1); CREATININE 0.9 mg/dL (0.6-1.3); POTASSIUM 4.7 mmol/L (3.5-5.1)
[2019-06-02 08:05] LABS: ALBUMIN 3.5 g/dL (3.4-5.0); TOTAL BILIRUBIN 0.3 mg/dL (<0.1-1.0); TOTAL PROTEIN 7.2 g/dL (6.4-8.2)
[2019-06-02 16:23] VITALS: BP 119/54
[2019-06-02 20:15] VITALS: BP 137/59
[2019-06-03] VITALS: BP 97/48
[2019-06-03 04:00] VITALS: BP 103/48
[2019-06-03 04:30] LABS: ABSOLUTE LYMPHOCYTES 2.1 thou/uL (0.8-5.3); ABSOLUTE MONOCYTES 0.6 thou/uL (0.0-1.2); ABSOLUTE NEUTROPHILS 5.1 thou/uL (1.6-8.1); BASOPHILS 0.4 %; EOSINOPHILS 0.1 %; HEMATOCRIT 30.2 % (37.0-47.0); MCH 27.6 pg (26.0-34.0); MCHC 32.9 g/dL (28.0-37.0); MCV 83.9 fL (80.0-100.0); MONOCYTES 7.1 %; MPV 7.4 fl. (7.2-11.1); NUCLEATED RBCS 0 /100WBC; POLYS 65.4 %; RDW-CV 15.9 % (10.5-14.5); WBC 7.8 thou/uL (4.0-11.0)
[2019-06-03 04:51] LABS: PLATELET COUNT* 190 thou/uL (150-400)
[2019-06-03 05:23] LABS: ALBUMIN 2.3 g/dL (3.4-5.0); CALCIUM 8.2 mg/dL (8.5-10.1); CREATININE 0.5 mg/dL (0.6-1.3); TOTAL BILIRUBIN 0.3 mg/dL (<0.1-1.0)
[2019-06-03 07:00] VITALS: BP 104/46
[2019-06-03 11:40] VITALS: BP 99/47
[2019-06-03 16:12] VITALS: BP 110/46
[2019-06-03 20:00] VITALS: BP 136/57
[2019-06-04] VITALS (7 sets, daily range): BP systolic 89–120; BP diastolic 33–61
[2019-06-04 05:40] LABS: HEMATOCRIT 31.5 % (37.0-47.0); HEMOGLOBIN 10.3 gm/dL (12.0-15.0); MCH 27.3 pg (26.0-34.0); MCHC 32.7 g/dL (28.0-37.0); MCV 83.6 fL (80.0-100.0); MPV 7.6 fl. (7.2-11.1); RBC 3.77 mil/uL (4.20-5.00); RDW-CV 16.2 % (10.5-14.5)
[2019-06-04 06:12] LABS: CALCIUM 8.4 mg/dL (8.5-10.1); CREATININE 0.6 mg/dL (0.6-1.3); MAGNESIUM 1.4 mg/dL (1.8-2.4); PHOSPHORUS* 2.7 mg/dL (2.5-4.9); POTASSIUM 3.9 mmol/L (3.5-5.1)
--- NOTE | 2019-06-04 13:07 | PATH ---
[facility] [address] [place] [address] PATHOLOGY RPT PROCEDURE Name: CARMEN SHABAZZ Room: [address] IN M.R.#: [id number] Admission: 06/02/19 Date of : 55 Discharge: Report #: [id number] Path Case #: [id number] [facility] Accession Number: [id number] . 01 Material submitted: . PART A: lymph node - ANTWAN-COLONIC LYMPH NODE,FS PART B: stomach - STOMA AND STAPLE LINE PART C: hernia - PARASTOMAL HERNIA SAC PART D: colon - ANASTOMATIC RINGS . 01 Clinical history: . History of diverticulitis and colostomy . 02 Frozen section diagnosis: . GROSS CONSULTATION: (Manny Hussein M.D.) . Pericolonic lymph node: - Benign fat. . A note is entered into the medical record. . Received fresh from the operating room accompanied by a label marked "Harika Carmen Cici, Pericolonic lymph node" is an oblong encapsulated firm nodule measuring 3.0 x 1.[address] Arellano requests intraoperative evaluation because he encountered this suspected lymph node while performing a colostomy takedown. The patient had a colostomy placed for diverticular disease. The specimen is serially sectioned and the interior is composed completely of fat and the specimen is demonstrated to Dr. Arellano in the operating room and no frozen section studies are performed. All of the specimen is submitted in cassette A1. (AGUILAR/db; 06/02/2019) . Gross consultation performed at [facility], [address] [id number]. BSM/LBErnestina . 02 Diagnosis: A. Tissue submitted as "pericolonic lymph node": - Pseudo-encapsulated nodule of fat necrosis, negative for malignancy. . B. Stoma and staple line: - Benign colostomy including skin and colonic tissue with erosion and acute inflammation of colonic mucosa at ostium and with evidence of prior surgery including mural fibrosis. - Benign colonic tissue with staple line showing fresh hemorrhage. . C. Parastomal hernia sac: - Benign mesothelial-lined fibromembranous / fibrofatty tissue with [facility] [address] [place] [address] PATHOLOGY RPT PROCEDURE Name: CARMEN SHABAZZ Room: [address] IN [facility]#: [id number] Admission: 06/02/19 Date of : 55 Discharge: Report #: [id number] Path Case #: [id number] fibroplasia and mild chronic inflammation. . D. Anastomotic rings: - Two benign colonic "anastomotic rings". (AGUILAR:pit; 06/04/2019) QTP 06/04/2019 1103 Local . 02 Electronically signed: . Manny Hussein MD, Pathologist NPI- [id number] . 01 Gross description: . A. SEE INTRAOPERATIVE CONSULTATION GROSS DESCRIPTION . B. The specimen is received in formalin, labeled "Carmen Shabazz, stoma and staple line". Received is a segment of colon measuring 4.3 cm in length by 1.5 cm in diameter. One margin displays clamp noguera and is slightly open. The opposite margin displays a ovoid excision of skin measuring 3.0 x 2.6 cm with a centrally located stoma, with exposed light torres mucosa, measuring 2.5 x 2.2 cm. The serosal surface of the bowel is pink-torres and smooth in appearance. The attached mesenteric fat measures up to 2.9 cm in thickness. Opening the specimen reveals light torres mucosa with normal architectural folds. No distinct nodules or lesions are noted grossly. The specimen is submitted representatively in cassette B1. . Also received within the specimen container is a staple line with attached aquino-torres mucosa measuring 4.1 x 1.4 x 1.4 cm in greatest dimensions. The segment is submitted representatively in cassette B2. . C. The specimen is received in formalin, labeled "Carmen Shabazz, parastomal hernia". Received is a segment of bright yellow lobulated tissue with a slight amount of attached fibromembranous tissue measuring 19.8 x 2.5 x 1.5 cm in greatest dimensions. No distinct nodules or lesions are noted grossly. The specimen is submitted representatively in cassette C1. . D. The specimen is received in formalin, labeled "Carmen Shabazz, anastomotic rings". Received are two circular segments of light torres mucosa measuring 1.4 x 1.2 x 1.2 and 1.6 x 1.3 x 0.9 cm in greatest dimensions. Dining Manager sections from each segment are submitted in cassette D1. (CAA; 06/03/2019) QAC/LBQ 06/04/2019 1106 Local . 02 Pathologist provided ICD-10: K52.9, K44.9 . 02 [facility] [address] [place] [address] PATHOLOGY RPT PROCEDURE Name: HARIKACARMENSIMONA VICK Room: [address] IN M.R.#: [id number] Admission: 06/02/19 Date of : 55 Discharge: Report #: [id number] Path Case #: [id number] [facility] . [id number], [id number], [id number], [id number], [id number] Specimen Comment: A courtesy copy of this report has been sent to [phone], [phone] Specimen Comment: [id number] Specimen Comment: Report sent to and Performed at: 01 [facility] [address], [place], [place] [id number] MD Chuck Ponce MD Phone: [phone] Performed at: 02 [facility] [address] [place], [place] [id number] MD Manny Hussein MD Phone: [phone]
[2019-06-05 03:45] VITALS: BP 93/54
[2019-06-05 04:47] LABS: HEMATOCRIT 32.1 % (37.0-47.0); HEMOGLOBIN 10.4 gm/dL (12.0-15.0); MCH 27.3 pg (26.0-34.0); MCHC 32.4 g/dL (28.0-37.0); MCV 84.3 fL (80.0-100.0); MPV 8.1 fl. (7.2-11.1); RBC 3.8 mil/uL (4.20-5.00); RDW-CV 16.6 % (10.5-14.5); WBC 9.5 thou/uL (4.0-11.0)
[2019-06-05 05:08] LABS: CALCIUM 8.7 mg/dL (8.5-10.1); CREATININE 0.6 mg/dL (0.6-1.3); MAGNESIUM 1.6 mg/dL (1.8-2.4); PHOSPHORUS* 3.7 mg/dL (2.5-4.9)
[2019-06-05 08:00] VITALS: BP 113/55
[2019-06-05 11:53] VITALS: BP 120/43
[2019-06-05 16:41] VITALS: BP 112/67
[2019-06-06 00:20] VITALS: BP 120/46
[2019-06-06 04:15] VITALS: BP 108/55
[2019-06-06 08:15] VITALS: BP 136/61
[2019-06-06 11:32] VITALS: BP 109/62
[2019-06-06 14:24] VITALS: BP 109/62
--- NOTE | 2019-06-17 13:35 | OP ---
[address] [address] OPERATIVE REPORT Name: RUY ACNDELARIA Room: [address] IN M.R.#: [id number] Admission: 06/02/19 Attend Phys: Corby Arellano DO Discharge: 06/06/19 Date of : 55 Report #: [id number] THIS REPORT FOR: //name// CC: Corby Swain DO REFERRING PHYSICIAN: Vinny Swain DO PREOPERATIVE DIAGNOSES: History of perforated diverticulitis with Efrain's procedure and parastomal hernia. POSTOPERATIVE DIAGNOSES: History of perforated diverticulitis with Efrain's procedure and parastomal hernia plus intraabdominal adhesions. PROCEDURES: Laparoscopic takedown of colostomy with reanastomosis of the sigmoid colon, lysis of adhesions lasting more than 30 minutes and repair of parastomal hernia. SURGEON: Corby Arellano DO CORPORATE COMPLIANCE OFFICER: Dr. Kaylee Houser SECOND EDITORIAL ASSISTANT: Student, Dr. Fidencio Ospina ANESTHESIA: General endotracheal and TAP blocks. ESTIMATED BLOOD LOSS: Less than 30 mL. COMPLICATIONS: None. DESCRIPTION OF PROCEDURE: After obtaining proper consents and discussing risks and complications with the patient, she was taken to the operating room, laid in the supine position, administered general anesthesia. She was then placed in lithotomy position. Garza catheter was inserted. Arms were tucked at her side. She was padded and then prepped and draped in the usual sterile fashion. A timeout was performed. We confirmed the appropriate patient and procedure. Preoperative antibiotics had been given. SCDs were in place. We then made a small supraumbilical skin incision with a #11 scalpel blade. This was carried down through the skin into the subcutaneous tissue using electrocautery for hemostasis. Once the fascia was encountered, it was incised along the midline, grasped and elevated with Ann clamps and divided further. The peritoneum was then bluntly opened using a hemostat. A finger was placed inside the peritoneal cavity to assure that there were no neela-incisional adhesions. Next, 2-0 Vicryl sutures were placed in a [id number] fashion to secure the Lisette trocar, which was then inserted and insufflation was begun. Once insufflation was complete, full visual inspection of the anterior abdominal [place] [address] OPERATIVE REPORT Name: RUY CANDELARIA Room: [address]#: [id number] Admission: 06/02/19 Attend Phys: Corby Arellano, Discharge: 06/06/19 Date of : 55 Report #: [id number] This immediately revealed a fairly large parastomal hernia. There were very few adhesions to the sigmoid colon going up through the abdominal wall and out as the stoma. We then placed the patient in steep Trendelenburg position. There were noted to be some midline and right lower quadrant adhesions from the previous surgery. These appeared to be mostly omental adhesions to the abdominal wall. We then placed another 5 mm trocar in the right abdomen about the level of the umbilicus. We were then able to take down the adhesions to the abdominal wall using electrocautery until I was able to place another 5 mm trocar in the midline. Once this was placed, I was able to take down the remainder of the adhesions. We then placed the patient in steep Trendelenburg position and attempted to identify the rectal stump. I was able to visualize a suture at this point and we began to dissect the rectal stump free. I was having some difficulty, so I elected to place another 5 mm trocar in the right lower abdomen. Following this, I was able to start to dissect this stump free more easily; however, I did have my pastrycook's assistant go down below and placed an EEA sizer up through the anus to assist with the dissection of the rectal stump. Once the rectal stump was dissected free, we then turned our attention to the colon going out through the abdominal wall and the parastomal hernia. I was able to reduce all of the fat out of the parastomal hernia using electrocautery as well and then also freed the entire colon going up through there. At this point, we went ahead and took down. We stopped the insufflation. We then made a circular incision around the colon coming through the abdominal wall at the site of the stoma and dissected the colon completely free. Once this was free, we chose a place for division of the colon. We then placed a Ann clamp across the colon and then divided it. I then used an EEA sizer again to estimate the size of the anastomosis. We elected to proceed with a 28 mm EEA. At this point, we dropped the anvil into the colon. I then used a RASHID stapler to staple across the colon. We then brought the anvil out through the tenia anteriorly. We then dropped this back into the peritoneal cavity. At this point, we then dissected out the entire hernia sac from the parastomal hernia all the way down to the fascial defect. The hernia sac was excised and passed off as specimen. This was done using electrocautery. Once the fascial edges were identified, the fascial opening was fairly small and we were able to primarily close this. This was closed using a running #1 looped PDS suture. The subcutaneous tissues were then packed with gauze and we then reinsufflated the abdominal cavity and then went back and performed the anastomosis. The anastomosis was performed by first using EEA sizers up the rectum. We also bubble tested the rectal stump to assure there was no hole. We then used immunofluorescence imaging as well to assure that there was good blood supply to the proximal and distal ends. This was done by giving 5 mg of indocyanine green dye by Anesthesia and then we watch this as both the proximal and distal ends filled with the contrast using the envy feature on our cameras. We then performed the anastomosis by placing a 28 mm EEA up through the anus. The spike was opened anterior to the previously made staple line. We then attached the anvil to the spike and closed the EEA down. The anastomosis was performed. We then bubble tested and checked the anastomotic rings as well. [place] [address] OPERATIVE REPORT Name: RUY CANDELARIA Room: [address] IN [facility]#: [id number] Admission: 06/02/19 Attend Phys: Corby Arellano DO Discharge: 06/06/19 Date of : 55 Report #: [id number] good rings and no evidence of leak when we bubble tested. We then placed a 15-Bulgarian Zenon-Souza drain through the suprapubic trocar site. This was then sutured in place using 2-0 nylon suture. We then stopped the insufflation. All the remaining trocars were removed. We then closed the umbilical fascia using the 2 previously placed 0 Vicryl sutures plus 2 additional 0 Vicryl sutures. Skin incisions were all closed using 4-0 Monocryl subcuticular stitches except for the stoma site where we closed the deeper subcutaneous tissues using a 3-0 Vicryl suture and then the subcutaneous and dermal edges were closed in a pursestring fashion using a 2-0 Vicryl suture. Sterile dressings were then placed. The patient was awakened in the operating room and transported to recovery room in stable condition. <ELECTRONICALLY SIGNED> By: Corby Arellano DO 06/17/19 1335 1150 1226Ajone Arellano DO /nt
== END 2019-06-06 15:45 | disposition home or self-care (01) | DRG 346 ==
LOC: M.2W 07:14 → M.TBA 07:14 → M.PRE 08:59 → M.TBA 11:43 → M.2W 13:52 → M.PRE 15:34 → M.2W 06-06 15:45
PROVIDERS: ADMIT Surgery
PROC: 0WQF4ZZ Repair Abdominal Wall, Percutaneous Endoscopic Approach (ICD-10-PCS; principal; 2019-06-02)
PROC: 0DSN4ZZ Reposition Sigmoid Colon, Percutaneous Endoscopic Approach (ICD-10-PCS; principal; 2019-06-02)
DX: K57.32 Diverticulitis of large intestine without perforation or abscess without bleeding (principal); Z28.21 Immunization not carried out because of patient refusal; K43.5 Parastomal hernia without obstruction or gangrene

== ENCOUNTER 2019-06-08 11:41 | Emergency (ER) | payer MEDICAID ==
[~2019-06-08] VITALS: Ht 172.7 cm; Wt 64.9 kg
[2019-06-08 12:53] VITALS: BP 112/52
== END 2019-06-08 12:53 | disposition home or self-care (01) ==
LOC: M.ERS 11:41
DX: S82.492A Other fracture of shaft of left fibula, initial encounter for closed fracture (principal); E11.9 Type 2 diabetes mellitus without complications; I10 Essential (primary) hypertension; J44.9 Chronic obstructive pulmonary disease, unspecified; G25.81 Restless legs syndrome; J45.909 Unspecified asthma, uncomplicated; I25.10 Atherosclerotic heart disease of native coronary artery without angina pectoris; K21.9 Gastro-esophageal reflux disease without esophagitis; F17.210 Nicotine dependence, cigarettes, uncomplicated; Z90.710 Acquired absence of both cervix and uterus; Z90.49 Acquired absence of other specified parts of digestive tract; X50.1XXA Overexertion from prolonged static or awkward postures, initial encounter; Y93.89 Activity, other specified; Y92.89 Other specified places as the place of occurrence of the external cause; Y99.8 Other external cause status

== ENCOUNTER 2019-08-10 14:15 | Emergency (ER) | payer MEDICAID ==
[~2019-08-10] VITALS: Ht 172.7 cm; Wt 64.4 kg
[2019-08-10] MEDS ORDERED: KEFLEX500 M2 PO (16:37)
[2019-08-10 16:55] VITALS: BP 152/60
== END 2019-08-10 16:56 | disposition home or self-care (01) ==
LOC: M.ERS 14:15
DX: E11.621 Type 2 diabetes mellitus with foot ulcer (principal); I10 Essential (primary) hypertension; J44.9 Chronic obstructive pulmonary disease, unspecified; G89.29 Other chronic pain; G25.81 Restless legs syndrome; I25.10 Atherosclerotic heart disease of native coronary artery without angina pectoris; F17.210 Nicotine dependence, cigarettes, uncomplicated; Z90.710 Acquired absence of both cervix and uterus

== ENCOUNTER 2019-08-13 13:49 | Emergency (ER) | payer MEDICAID ==
[~2019-08-13] VITALS: Ht 172.7 cm; Wt 64.4 kg
[~2019-08-13 13:49] MED LIST changes: +KEFLEX500 M2 PO
[2019-08-13 14:38] LABS: ABSOLUTE BASOPHILS 0.1 thou/uL (0.0-0.2); ABSOLUTE EOSINOPHILS 0.2 thou/uL (0.0-0.7); ABSOLUTE LYMPHOCYTES 3.3 thou/uL (0.8-5.3); ABSOLUTE NEUTROPHILS 6.1 thou/uL (1.6-8.1); BASOPHILS 1.2 %; EOSINOPHILS 1.8 %; HEMATOCRIT 34.4 % (37.0-47.0); HEMOGLOBIN 11.2 gm/dL (12.0-15.0); LYMPHOCYTES 30.8 %; MCH 27.9 pg (26.0-34.0); MCHC 32.6 g/dL (28.0-37.0); MCV 85.6 fL (80.0-100.0); MONOCYTES 8.9 %; MPV 7.8 fl. (7.2-11.1); NUCLEATED RBCS 0 /100WBC; PLATELET COUNT* 247 thou/uL (150-400); POLYS 57.3 %; RBC 4.02 mil/uL (4.20-5.00); RDW-CV 16.2 % (10.5-14.5); WBC 10.7 thou/uL (4.0-11.0)
[2019-08-13 14:45] LABS: CALCIUM 8.5 mg/dL (8.5-10.1); CREATININE 0.7 mg/dL (0.6-1.3); POTASSIUM 4.4 mmol/L (3.5-5.1)
[2019-08-13 14:54] LABS: URINE BILIRUBIN NEGATIVE (Negative); URINE BLOOD NEGATIVE (Negative); URINE CLARITY CLEAR; URINE COLOR YELLOW; URINE GLUCOSE-RANDOM NEGATIVE (Negative); URINE KETONES NEGATIVE (Negative); URINE LEUKOCYTES-REFLEX NEGATIVE (Negative); URINE NITRITE-REFLEX NEGATIVE (Negative); URINE PROTEIN NEGATIVE (Negative); URINE UROBILINOGEN 0.2 E.U./dl (0.2-1.0)
[2019-08-13 14:57] LABS: ALBUMIN 2.9 g/dL (3.4-5.0); TOTAL BILIRUBIN 0.2 mg/dL (<0.1-1.0); TOTAL PROTEIN 6.3 g/dL (6.4-8.2)
--- NOTE | 2019-08-13 15:04 | EKG ---
[place] [address] ELECTROCARDIOGRAM REPORT Name: TEAGANRUY NICANOR Room: [facility]#: [id number] Admission: 08/13/19 Attend Phys: Discharge: Date of : 55 Report #: [id number] THIS REPORT FOR: //name// [facility] ED Test Date: 2019-08-13 Test Time: 14:07:42 Pat Name: RUY CANDELARIA Department: Room: Gender: F Tool Design Engineer: : 1955 Requested By: Kareem Pepe Order Number: [id number] MD: Cuco May Measurements Intervals [place] Rate: 64 P: 79 CA: 162 QRS: 20 QRSD: 86 T: 75 QT: 436 QTc: 450 Interpretive Statements Sinus rhythm Low voltage, extremity and precordial leads Compared to ECG 01/30/2019 19:28:10 No significant changes Electronically Signed On 08-13-2019 15:03:35 COAT CHECKER by Cuco May [email or web address] <ELECTRONICALLY SIGNED> By: Cuco May MD, [facility] 08/13/19 1503 1407 1407 Cuco May MD, FACC /EPI
[2019-08-13 15:10] LABS: AMP/METHAMP Negative (Negative); BARBITURATES Negative (Negative); BENZODIAZEPINES POSITIVE (Negative); COCAINE Negative (Negative); METHADONE Negative (Negative); OPIATES POSITIVE (Negative); PCP Negative (Negative); THC POSITIVE (Negative)
[2019-08-13 17:04] VITALS: BP 103/46
== END 2019-08-13 17:04 | disposition left against medical advice (07) ==
LOC: M.ERS 13:49
PROVIDERS: Emergency Medicine Emergency Medical Services
DX: F19.10 Other psychoactive substance abuse, uncomplicated (principal); E11.9 Type 2 diabetes mellitus without complications; I10 Essential (primary) hypertension; J44.9 Chronic obstructive pulmonary disease, unspecified; G89.29 Other chronic pain; G25.81 Restless legs syndrome; J45.909 Unspecified asthma, uncomplicated; K21.9 Gastro-esophageal reflux disease without esophagitis; I25.10 Atherosclerotic heart disease of native coronary artery without angina pectoris; F17.210 Nicotine dependence, cigarettes, uncomplicated; Z90.710 Acquired absence of both cervix and uterus

== ENCOUNTER 2020-09-11 15:47 | Emergency (ER) | payer OTHER, MEDICAID ==
[~2020-09-11] VITALS: Ht 172.7 cm; Wt 54.9 kg
[2020-09-11] MEDS ORDERED: PERCOCET PO (17:07)
[2020-09-11 17:21] VITALS: BP 96/39
== END 2020-09-11 17:22 | disposition home or self-care (01) ==
LOC: M.ERS 15:47
DX: S70.11XA Contusion of right thigh, initial encounter (principal); M17.11 Unilateral primary osteoarthritis, right knee; G89.29 Other chronic pain; J44.9 Chronic obstructive pulmonary disease, unspecified; I10 Essential (primary) hypertension; E11.9 Type 2 diabetes mellitus without complications; G25.81 Restless legs syndrome; K21.9 Gastro-esophageal reflux disease without esophagitis; I25.10 Atherosclerotic heart disease of native coronary artery without angina pectoris; F17.210 Nicotine dependence, cigarettes, uncomplicated; Z90.710 Acquired absence of both cervix and uterus; Z90.49 Acquired absence of other specified parts of digestive tract; W01.0XXA Fall on same level from slipping, tripping and stumbling without subsequent striking against object, initial encounter; Y93.89 Activity, other specified; Y92.89 Other specified places as the place of occurrence of the external cause; Y99.8 Other external cause status

== ENCOUNTER 2020-12-25 11:30 | Emergency (ER) | payer OTHER, MEDICAID ==
[~2020-12-25] VITALS: Ht 165.1 cm; Wt 89.0 kg
[~2020-12-25 11:30] MED LIST changes: +PERCOCET PO
[2020-12-25 12:36] LABS: HEMATOCRIT 41.2 % (37.0-47.0); MCH 25.7 pg (26.0-34.0); MCHC 31.5 g/dL (28.0-37.0); MCV 81.6 fL (80.0-100.0); MPV 8.6 fl. (7.2-11.1); NUCLEATED RBCS 0 /100WBC; PLATELET COUNT* 210 thou/uL (150-400); RBC 5.04 mil/uL (4.20-5.00); RDW-CV 18.3 % (10.5-14.5); WBC 34.6 thou/uL (4.0-11.0)
[2020-12-25 12:46] LABS: CALCIUM 9.2 mg/dL (8.5-10.1); CREATININE 0.7 mg/dL (0.6-1.3); POTASSIUM 3.9 mmol/L (3.5-5.1)
[2020-12-25] MEDS ORDERED: ASA81BEC PO (12:50)
[2020-12-25] MEDS ORDERED: VITAMIN B122500 MC1 PO (12:50)
[2020-12-25] MEDS ORDERED: RAYOS5 MG PO (12:50)
[2020-12-25] MEDS ORDERED: FLEXERIL PO (12:51)
[2020-12-25] MEDS ORDERED: LYRICA25 MG PO (12:51)
[2020-12-25] MEDS ORDERED: CLOPIDOGREL75 MG PO (12:52)
[2020-12-25] MEDS ORDERED: PROMETH-CODEIN 65 ML PO (12:52)
[2020-12-25] MEDS ORDERED: REQUIP 0.25 M0.25 M1 PO (12:52)
[2020-12-25 12:56] LABS: ALBUMIN 3.1 g/dL (3.4-5.0); TOTAL BILIRUBIN 0.5 mg/dL (<0.1-1.0); TOTAL PROTEIN 6.5 g/dL (6.4-8.2)
[2020-12-25 13:01] LABS: ABSOLUTE BASOPHILS 0.3 thou/uL (0.0-0.2); ABSOLUTE LYMPHOCYTES 2.4 thou/uL (0.8-5.3); ABSOLUTE MONOCYTES 1.7 thou/uL (0.0-1.2); ABSOLUTE NEUTROPHILS 30.1 thou/uL (1.6-8.1)
[2020-12-25 13:03] LABS: PLATELET ESTIMATE ADEQUATE
[2020-12-25 13:04] LABS: ANISOCYTOSIS 1+
[2020-12-25 13:15] LABS: BE -2.8 mmol/L (-2 to +3); PCO2 47.2 mmHg (35.0-45.0); pH 7.317 (7.340-7.450)
[2020-12-25 13:18] LABS: PO2 > 488.8 mmHg (75.0-100.0)
[2020-12-25 14:02] LABS: URINE BILIRUBIN NEGATIVE (Negative); URINE BLOOD NEGATIVE (Negative); URINE CLARITY CLEAR; URINE COLOR YELLOW; URINE GLUCOSE-RANDOM NEGATIVE (Negative); URINE KETONES NEGATIVE (Negative); URINE LEUKOCYTES-REFLEX NEGATIVE (Negative); URINE NITRITE-REFLEX NEGATIVE (Negative); URINE PROTEIN NEGATIVE (Negative); URINE UROBILINOGEN 0.2 E.U./dl (0.2-1.0)
[2020-12-25 17:06] VITALS: BP 107/67
--- NOTE | 2020-12-27 13:48 | EKG ---
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: : 1955 Requested By: Kareem Pepe Order Number: [id number] MD: Kvng Strong Measurements Intervals [place] Rate: 94 P: 86 CO: 158 QRS: -74 QRSD: 82 T: 58 QT: 381 QTc: 477 Interpretive Statements Sinus rhythm Right atrial enlargement LAD, consider left anterior fascicular block Borderline prolonged QT interval Compared to ECG 08/13/2019 14:07:42 Atrial abnormality now present Electronically Signed On 12-27-2020 13:48:44 CDT by Kvng Strong [email or web address] <ELECTRONICALLY SIGNED> By: Kvng Strong MD, [facility] 12/27/20 1348 1230 1230 Kvng Strong MD, [facility] /EPI
== END 2020-12-25 17:10 | disposition short-term general hospital (02) ==
LOC: M.ERS 11:30
PROVIDERS: Emergency Medicine Emergency Medical Services
DX: J96.90 Respiratory failure, unspecified, unspecified whether with hypoxia or hypercapnia (principal); Z20.822 Contact with and (suspected) exposure to COVID-19; J18.9 Pneumonia, unspecified organism; E11.9 Type 2 diabetes mellitus without complications; I10 Essential (primary) hypertension; J44.9 Chronic obstructive pulmonary disease, unspecified; G25.81 Restless legs syndrome; K21.9 Gastro-esophageal reflux disease without esophagitis; I25.10 Atherosclerotic heart disease of native coronary artery without angina pectoris; G89.29 Other chronic pain; F17.210 Nicotine dependence, cigarettes, uncomplicated; Z90.710 Acquired absence of both cervix and uterus; Z95.5 Presence of coronary angioplasty implant and graft

== ENCOUNTER 2021-03-11 17:55 | Emergency (ER) | payer OTHER, MEDICAID ==
[~2021-03-11] VITALS: Ht 172.7 cm; Wt 54.9 kg
[~2021-03-11 17:55] MED LIST changes: +ASA81BEC PO; +LYRICA25 MG PO; +RAYOS5 MG PO; +REQUIP 0.25 M0.25 M1 PO; +VITAMIN B122500 MC1 PO
[2021-03-11 20:07] VITALS: BP 105/58
== END 2021-03-11 20:07 | disposition home or self-care (01) ==
LOC: M.ERS 17:55
DX: M79.651 Pain in right thigh (principal); M79.661 Pain in right lower leg; E11.9 Type 2 diabetes mellitus without complications; I10 Essential (primary) hypertension; J44.9 Chronic obstructive pulmonary disease, unspecified; G25.81 Restless legs syndrome; K21.9 Gastro-esophageal reflux disease without esophagitis; G89.29 Other chronic pain; F17.210 Nicotine dependence, cigarettes, uncomplicated; Z95.5 Presence of coronary angioplasty implant and graft; Z90.710 Acquired absence of both cervix and uterus; Z88.8 Allergy status to other drugs, medicaments and biological substances